=== PATIENT | male | born 1970 | race Caucasian/White ===

== ENCOUNTER 2017-12-15 17:48 | Observation (INO) ==
[2017-12-15] MEDS ORDERED: Ondansetron 4 MG/2 ML VIAL IVP ONE (18:15)
[2017-12-15] MEDS ORDERED: *HR* FentaNYL (PF) 100 MCG/2 ML VIAL IVP ONE (18:15)
--- NOTE | 2017-12-15 18:17 | Emergency Department Note ---
Disposition Clinical Impression: Dizziness, TANNER (acute kidney injury), Hyponatremia, Hypochloremia Abdominal pain Qualifiers: Abdominal location: epigastric Qualified Code(s): R10.13 - Epigastric pain Nausea & vomiting Qualifiers: Vomiting type: unspecified Vomiting Intractability: intractable Qualified Code( s): R11.2 - Nausea with vomiting, unspecified Disposition: Admitted As Inpatient Referrals: Pasquale Pruett DO [Primary Care Provider] - Forms: ED Satisfaction Letter General Adult HPI - General Chief complaint: ED Dizziness Stated complaint: Dizziness Time Seen by Provider: 12/15/17 17:58 Source: patient Limitations: no limitations Nursing Notes Reviewed: Yes Vital Signs Reviewed: Yes - History of Present Illness HPI Narrative: 47 yo M c ETOH abuse, Depression, HTN reports to the ED c/o 1 week of gradual onset epigastic abdominal pain. He reports additionally he has had a weeks worth of lightheaded dizziness and nausea and vomiting. He reports during this time he has also felt like his blood pressure has been elevated. He reports blurry vision, flushing, headache during this time, but he doesn't have a BP cuff. He has been taking double of his blood pressure medication the last few days as a result. He reports he passed out today. He reports pain improves with direct pressure to the epigastrium. He denies diarrhea. Pain Scale: 6 - Related Data Home Medications Medication Instructions Recorded Confirmed Indomethacin [Indomethacin] 50 mg PO TID PRN 12/15/17 12/15/17 Lisinopril [Zestril] 20 mg PO DAILY 12/15/17 12/15/17 Trazodone HCl 100 mg PO HS 12/15/17 12/15/17 Allergies Allergy/AdvReac Type Severity Reaction Status Date / Time No Known Allergies Allergy Verified 12/15/17 21:38 Review of Systems: As Per HPI Past Medical History - Past Medical History Medical history: Reports: hypertension, other Psychiatric history: Reports: no psych history - Social History Smoking Status: Former smoker Alcohol use: Reports: heavy Drug use: Reports: none Physical Exam - General Limitations: no limitations General appearance: alert, in no apparent distress - Head Head exam: atraumatic, normocephalic - Eye Eye exam: Present: PERRL, EOMI - ENT ENT exam: normal oropharynx, mucous membranes moist - Neck Neck exam: Present: full ROM, trachea midline - Chest Chest inspection: Present: symmetric chest wall rise. Absent: tenderness - Respiratory Respiratory exam: Present: normal lung sounds bilaterally. Absent: respiratory distress - Cardiovascular Cardiovascular exam: Present: regular rate, normal rhythm, normal heart sounds - Abdominal Exam Abdominal exam: Present: soft, tenderness, normal bowel sounds. Absent: guarding, rigidity Abdominal tenderness: Present: diffuse - Extremities Exam Extremities exam: Present: full ROM. Absent: pedal edema - Neurological Exam Neurological exam: Present: alert, oriented X3, CN II-XII intact. Absent: motor sensory deficit - Psychiatric Psychiatric exam: Present: normal affect, normal mood - Skin Skin exam: Present: warm, diaphoresis Course Course Narrative: Will check CBC, CMP, CT abd pelvis, RUQ u/s, will treat pain, and nausea. FAST exam negative for fluid int he abdomen. Examination of aorta reveals no dilation or dissection on exam. - Consultations Consultation #1: Discussed case with Admitting hospitlaist Dr. Hurtado who agreed to admit the patient. Vital Signs Temperature 97.8 F 12/15/17 17:52 Pulse Rate 140 12/15/17 17:52 Respiratory Rate 24 12/15/17 17:52 Blood Pressure 89/26 12/15/17 17:52 O2 Sat by Pulse Oximetry 100 12/15/17 17:52 Temperature 97.8 F 12/15/17 17:52 Pulse Rate 106 12/15/17 21:34 Respiratory Rate 18 12/15/17 21:34 Blood Pressure 101/77 12/15/17 21:34 O2 Sat by Pulse Oximetry 98 12/15/17 21:34 Oxygen Delivery Oxygen Delivery Room Air Medical Decision Making - MDM Narrative Medical decision making narrative: Patient's CBC unremarkable. BMP showed hyponatremia and hypocholremia, and an TANNER. LFTs revealed elevated AST, ALT mild elevation to alk phos all likely secondary to pt's alcoholism. Upon presentation patient was tachypnic, tachycardic and hypotensive. Patient's BP has remained been low and pulse tachycardic although improved s/p one liter NS. Will admit patient for further work up and management. - Medical Records Medical records reviewed: Yes I reviewed the patient's medical records. - Lab Data Lab results reviewed: Yes I reviewed the patient's lab results. Result diagrams: 12/15/17 18:39 12/15/17 18:39 Lab Results 12/15/17 12/15/17 12/15/17 Range/Units 18:39 18:39 19:48 WBC 5.8 (4.3-11.1) K/mcL RBC 5.18 (4.19-5.50) M/mcL Hgb 17.5 H (12.9-16.9) g/dL Hct 47.4 (37.5-50.1) % MCV 91.5 (83.0-100.0) fL MCH 33.8 H (28.0-33.3) pg MCHC 36.9 H (31.6-35.5) g/dL RDW 11.8 (11.5-14.5) % Plt Count 182 (140-400) K/mcL MPV 9.8 (9.4-12.4) fL Immature Gran % 0.3 (0-4) % Seg Neutrophils % 65.7 % Lymphocytes % 22.5 % Monocytes % 10.1 % Eosinophils % 0.2 % Basophils % 1.2 % Neutrophils # 3.8 (1.6-8.9) K/mcL Lymphocytes # 1.3 (0.6-4.6) K/mcL Monocytes # 0.6 (0.0-1.3) K/mcL Eosinophils # 0.0 (0.0-0.6) K/mcL Basophils # 0.1 (0.0-0.2) K/mcL Sodium 128 L (136-145) mEq/L Potassium 4.3 (3.5-5.1) mEq/L Chloride 96 L (98-107) mEq/L Carbon Dioxide 18 L (23-29) mEq/L BUN 15 (6-20) mg/dL Creatinine 1.43 H (0.70-1.30) mg/dL Est GFR ( Amer) > 60 (> 60) Est GFR (Non-Af Amer) 53 L (> 60) BUN/Creatinine Ratio 10 (6-26) Glucose 106 H (70-105) mg/dL Calculated Osmolality 267 L (280-300) Calcium 8.8 (8.6-10.3) mg/dL Total Bilirubin 2.3 H (0.3-1.0) mg/dL AST 209 H (13-39) Units/L ALT 133 H (7-52) Units/L Alkaline Phosphatase 127 H (34-104) Units/L Troponin I < 0.03 (< 0.04) ng/mL Serum Total Protein 6.9 (6.4-8.9) g/dL Albumin 3.4 L (3.5-5.7) g/dL Globulin 3.5 (2.4-3.5) g/dL Albumin/Globulin Ratio 1.0 L (1.1-2.2) Lipase 58 (11-82) Units/L Urine Opiates Screen Negative (Zeyfwx=041) ng/mL Ur Barbiturates Screen Negative (Uykbjp=791) ng/mL Ur Phencyclidine Scrn Negative (Cutoff=25) ng/mL Ur Amphetamines Screen Negative (Zwvjvb=3248) ng/mL U Benzodiazepines Scrn Negative (Cwxyjj=084) ng/mL Urine Cocaine Screen Negative (Cutoff= 300) ng/mL U Marijuana (THC) Screen Negative (Cutoff = 50) ng/mL - Radiology Data Radiology results reviewed: Yes I reviewed the patient's radiology results. - EKG Data EKG #1 EKG attestation: Yes I reviewed and interpreted this EKG. EKG results narrative: EKG 12/15/17 20:34 Sinus rythm rate of 95 bpm [place] interval 111, QRS 85 QT/QTc 351/ 404 short [place] interval no ST segment changes. EKG no significant change from prior of 11/19/14 Pr interval then 117 Attestation Statement - Attestation Attestation: I, Berry Francois DO, examined this patient [id number] and my medical decision-making was reviewed with Roberth Stoll PGY-1, Resident Physician. I agree with the documented findings, disposition and treatment plan as described except to the extent set forth below. Please see my progress notes for details.
[2017-12-15] MEDS ORDERED: *HR* LORazepam 2 MG/ML VIAL IVP ONE (18:24)
[2017-12-15] MEDS ORDERED: 0.9 % Sodium Chloride 1,000 ML ONE (18:56)
[2017-12-15 19:04] LABS: Basophils # 0.1 K/mcL (0.0-0.2); Basophils % 1.2 %; Eosinophils % 0.2 %; Hematocrit 47.4 % (37.5-50.1); Hemoglobin 17.5 g/dL (12.9-16.9); Immature Granulocytes % 0.3 % (0-4); Lymphocytes # 1.3 K/mcL (0.6-4.6); Lymphocytes % 22.5 %; Mean Corpuscular HGB Conc 36.9 g/dL (31.6-35.5); Mean Corpuscular Hemoglobin 33.8 pg (28.0-33.3); Mean Corpuscular Volume 91.5 fL (83.0-100.0); Mean Platelet Volume 9.8 fL (9.4-12.4); Monocytes # 0.6 K/mcL (0.0-1.3); Monocytes % 10.1 %; Neutrophils # 3.8 K/mcL (1.6-8.9); Platelet Count 182 K/mcL (140-400); Red Blood Count 5.18 M/mcL (4.19-5.50); Red Cell Distribution Width 11.8 % (11.5-14.5); Segmented Neutrophils % 65.7 %
[2017-12-15] MEDS ORDERED: 0.9 % Sodium Chloride 1,000 ML IVC ONE (19:05)
[2017-12-15 19:10] LABS: Alanine Aminotransferase 133 Units/L (7-52); Albumin 3.4 g/dL (3.5-5.7); Alkaline Phosphatase 127 Units/L (34-104); Aspartate Amino Transferase 209 Units/L (13-39); BUN/Creatinine Ratio 10 (6-26); Bilirubin,Total 2.3 mg/dL (0.3-1.0); Blood Urea Nitrogen 15 mg/dL (6-20); Calcium 8.8 mg/dL (8.6-10.3); Carbon Dioxide 18 mEq/L (23-29); Chloride 96 mEq/L (98-107); Globulin 3.5 g/dL (2.4-3.5); Glucose 106 mg/dL (70-105); Lipase 58 Units/L (11-82); Osmolality,Calculated 267 (280-300); Potassium 4.3 mEq/L (3.5-5.1); Sodium 128 mEq/L (136-145); Total Protein 6.9 g/dL (6.4-8.9); eGFR For African Americans > 60 (> 60); eGFR For Non-African Americans 53 (> 60)
--- NOTE | 2017-12-15 19:13 | Emergency Department Note ---
Disposition Clinical Impression: Abdominal pain, Dizziness, Nausea & vomiting, TANNER (acute kidney injury), Hyponatremia, Hypochloremia Disposition: Admitted As Inpatient Condition: Good Reasons to Return/Additional Instructions: Please follow up with your primary care provider within 1 week of discharge. Please return to the ED if you experience new or worsening symptoms such as blood in vomit, high fever. Please reduce your alcohol consumption. Please obtain a blood pressure cough and only take your blood pressure medication as prescribed. Referrals: Pasquale Pruett, [Primary Care Provider] - Forms: ED Satisfaction Letter Time of Disposition: 21:24 General Adult HPI - General Chief complaint: ED Dizziness Stated complaint: Dizziness Time Seen by Provider: 12/15/17 17:58 Source: patient Limitations: no limitations - History of Present Illness Pain Scale: 6 - Related Data Allergies Allergy/AdvReac Type Severity Reaction Status Date / Time No Known Allergies Allergy Verified 07/14/17 10:29 Past Medical History - Past Medical History Medical history: Reports: hypertension, other Psychiatric history: Reports: no psych history - Social History Smoking Status: Former smoker Alcohol use: Reports: heavy Drug use: Reports: none Physical Exam - General Limitations: no limitations General appearance: alert, in no apparent distress Course Vital Signs Temperature 97.8 F 12/15/17 17:52 Pulse Rate 140 12/15/17 17:52 Respiratory Rate 24 12/15/17 17:52 Blood Pressure 89/26 12/15/17 17:52 O2 Sat by Pulse Oximetry 100 12/15/17 17:52 Temperature 97.8 F 12/15/17 17:52 Pulse Rate 106 12/15/17 20:21 Respiratory Rate 18 12/15/17 20:21 Blood Pressure 104/77 12/15/17 20:21 O2 Sat by Pulse Oximetry 98 12/15/17 20:21 Oxygen Delivery Oxygen Delivery Room Air Medical Decision Making - Lab Data Result diagrams: 12/15/17 18:39 12/15/17 18:39 Lab Results 12/15/17 12/15/17 12/15/17 Range/Units 18:39 18:39 19:48 WBC 5.8 (4.3-11.1) K/mcL RBC 5.18 (4.19-5.50) M/mcL Hgb 17.5 H (12.9-16.9) g/dL Hct 47.4 (37.5-50.1) % MCV 91.5 (83.0-100.0) fL MCH 33.8 H (28.0-33.3) pg MCHC 36.9 H (31.6-35.5) g/dL RDW 11.8 (11.5-14.5) % Plt Count 182 (140-400) K/mcL MPV 9.8 (9.4-12.4) fL Immature Gran % 0.3 (0-4) % Seg Neutrophils % 65.7 % Lymphocytes % 22.5 % Monocytes % 10.1 % Eosinophils % 0.2 % Basophils % 1.2 % Neutrophils # 3.8 (1.6-8.9) K/mcL Lymphocytes # 1.3 (0.6-4.6) K/mcL Monocytes # 0.6 (0.0-1.3) K/mcL Eosinophils # 0.0 (0.0-0.6) K/mcL Basophils # 0.1 (0.0-0.2) K/mcL Sodium 128 L (136-145) mEq/L Potassium 4.3 (3.5-5.1) mEq/L Chloride 96 L (98-107) mEq/L Carbon Dioxide 18 L (23-29) mEq/L BUN 15 (6-20) mg/dL Creatinine 1.43 H (0.70-1.30) mg/dL Est GFR ( Amer) > 60 (> 60) Est GFR (Non-Af Amer) 53 L (> 60) BUN/Creatinine Ratio 10 (6-26) Glucose 106 H (70-105) mg/dL Calculated Osmolality 267 L (280-300) Calcium 8.8 (8.6-10.3) mg/dL Total Bilirubin 2.3 H (0.3-1.0) mg/dL AST 209 H (13-39) Units/L ALT 133 H (7-52) Units/L Alkaline Phosphatase 127 H (34-104) Units/L Troponin I < 0.03 (< 0.04) ng/mL Serum Total Protein 6.9 (6.4-8.9) g/dL Albumin 3.4 L (3.5-5.7) g/dL Globulin 3.5 (2.4-3.5) g/dL Albumin/Globulin Ratio 1.0 L (1.1-2.2) Lipase 58 (11-82) Units/L Urine Opiates Screen Negative (Gjrzmv=442) ng/mL Ur Barbiturates Screen Negative (Sutmnq=974) ng/mL Ur Phencyclidine Scrn Negative (Cutoff=25) ng/mL Ur Amphetamines Screen Negative (Klimqe=8267) ng/mL U Benzodiazepines Scrn Negative (Sabcfw=507) ng/mL Urine Cocaine Screen Negative (Cutoff= 300) ng/mL U Marijuana (THC) Screen Negative (Cutoff = 50) ng/mL Attestation Statement - Attestation Attestation: I, Berry Francois DO, examined this patient [id number] and my medical decision-making was reviewed with Roberth Stoll PGY-1, Resident Physician. I agree with the documented findings, disposition and treatment plan as described except to the extent set forth below. Please see my progress notes for details. 47-year-old male presents emergency room with what he describes is persistently worsening nausea and vomiting epigastric pain as well as diaphoresis and sweating. Patient denies any chest pain or shortness of breath. Does have abdominal discomfort and symptoms. After lengthy discussions as well as review his previous chart patient is a known alcoholic and has not drank since last night. He also takes his blood pressure medication based on how he feels symptomatically. He does not follow his medication regimens appropriately but does not disclose any new medications or changes in his medication. Patient denies any fevers or chills headache vision changes trauma or injuries. Her presenting symptoms are nausea and vomiting with epigastric pain. On physical exam the patient has swelling to the presentation of this time. Head is atraumatic pupils are reactive oropharynx is patent mucous membranes are moist. Trachea is midline. Lungs are clear heart is regular abdomen is soft does describe some discomfort in the epigastric area and bilateral upper quadrants. Outside ultrasound was utilized looking at the right upper quadrant and left upper quadrant. There is no visible signs of free fluid and then severe evaluated through the subxiphoid periumbilical subumbilical regions of the abdomen showing what appears to be asymmetric diameters to the aorta with the readings being 1.7 2.0 2.0. Patient is alert and oriented this time. He moves all 4 of his extremities without any difficulty. He has symmetrical pulses in the radial DP and PT distributions. Patient is concerning for possible bowel related withdrawal issues this point along with intractable nausea vomiting secondary to this issue. Patient will be provided with Ativan, chills, nausea medication here. His blood pressure was initially decreased but otherwise remainder of those evaluation is unremarkable. Patient is concerning for possible intra-abdominal pathology this is CT imaging the abdomen will be added on and possible ultrasound. Patient is clinically stable no acute signs of dissection, aneurysm, intra-abdominal pathology based on initial triage evaluation. Disposition to be determined once full workup and treatment course are completed. See detailed documentation that initial physical exam, medical intervention, medical decision-making and disposition in the resident physician' s note. No current local care provider the patient's treatment course at this time 2034 Patient has a negative CT of the abdomen at this time. Ultrasound is unremarkable except for hepatic steatosis. Chest x-ray is stable. Labs appear to be stable at this time except for what appears to be new hyponatremia, hypochloremia, decreased bicarbonate and acute kidney insufficiency. Patient also was hypotensive initially on presentation are tachycardic and tachypnea. No acute infectious etiology was noted at this point. Patient will be informed of the findings and discuss disposition. Admission process will be recommended secondary to the multifactorial presentation. No other acute findings during this evaluation. Patient does not have any acute signs of decompensation. Unknown etiology to the abdominal pain that he has had for greater than 1 week. 2044 Patient has negative troponin and EKG. Patient will be admitted for symptomatic hypotension, acute kidney insufficiency and I abnormalities. Patient is resting much more comfortably at this time is denying any specific symptoms after treatment course was completed. Hospitalist will be patient informed of the patient's presentation and will be recommended to monitor the patient for alcohol withdrawal. Admission process to be completed. Detailed conversation had. No other recommendations.
[2017-12-15 20:10] LABS: Amphetamine Screen,Urine Negative ng/mL (Cutoff=1000); Barbiturate Screen,Urine Negative ng/mL (Cutoff=200); Benzodiazepines Screen,Urine Negative ng/mL (Cutoff=200); Cannabinoid Screen,Urine Negative ng/mL (Cutoff = 50); Cocaine Screen,Urine Negative ng/mL (Cutoff= 300); Opiate Screen,Urine Negative ng/mL (Cutoff=300); Phencyclidine Screen,Urine Negative ng/mL (Cutoff=25)
[2017-12-15 20:42] LABS: Troponin I < 0.03 ng/mL (< 0.04)
[2017-12-15] MEDS ORDERED: Naloxone 0.4 MG/ML INJ IVP PRN (23:00)
[2017-12-15] MEDS ORDERED: *HR* Promethazine 25 MG/ML VIAL IVP PRN (23:06)
[2017-12-15] MEDS ORDERED: *HR* LORazepam 2 MG/ML VIAL IVP PRN ×3 (23:06)
[2017-12-15] MEDS ORDERED: Ondansetron 4 MG/2 ML VIAL IVP PRN (23:06)
[2017-12-16] MEDS: Pantoprazole 40 MG VIAL IVP SCH ×3 (00:08→17:09)
[2017-12-16] MEDS: 0.9 % Sodium Chloride 1,000 ML IVC SCH ×2 (00:13→09:53)
--- NOTE | 2017-12-16 02:20 | Internal Med History&Physical ---
Date of Encounter: 12/15/17 Time of Encounter: 21:00 Internal Medicine - H&P: HPI Chief complaint: Dizziness Admitted From: Home Plans for Post Hospital Care: Home History of present illness: Mr. Montes De Oca is a 47 year old male presented to ER for dizziness and nausea. Past medical history is significant for hypertension, alcoholism. Patient said he has increased heartburn and nausea for about 1 week. Patient has poor intake because of GI symptoms. Patient feels shortness of breath and dizzy. He has nausea but no vomiting. Patient denies diarrhea. Patient has no chest pain. Patient denies black stool. Patient has mild shaking and diaphoresis. Patient was known for alcoholism with drinking 6-8 beers every day. In the emergency room, he was found hypotensive and tachycardia. He was treated with IV fluid and symptoms has improved. Patient also was found elevated creatinine. Patient was admitted for further management. Past Med Surg Social Fam HX - Past Medical History Medical history: hypertension, other Psychiatric history: no psych history - Social History Smoking Status: Former smoker Alcohol use: heavy Drug use: none - Family History Mother History Unknown: Yes Internal Medicine - H&P: Meds Indomethacin [Indomethacin] 50 mg PO TID PRN 12/15/17 [History] Lisinopril [Zestril] 20 mg PO DAILY 12/15/17 [History] Trazodone HCl 100 mg PO HS 12/15/17 [History] 3 Allergy/AdvReac Type Severity Reaction Status Date / Time No Known Allergies Allergy Verified 12/15/17 21:38 All Systems PM: A 10-system review of systems was performed and is negative for pertinent findings except as documented above in the HPI. - Constitutional Vitals: Temp Pulse Resp BP Pulse Ox 97.4 F L 98 20 103/76 100 12/15/17 23:40 12/15/17 23:40 12/15/17 23:40 12/15/17 23:40 12/15/17 23:40 General appearance: Present: A&O X 3, no acute distress, answers questions appropriately - Head Head exam: Present: atraumatic, normocephalic - Eye Eye exam: Present: PERRL, conjuntiva pink, sclera anicteric Pupils: Present: PERRL - Neck Neck exam general surgery: Present: supple, trachea midline. Absent: lymphadenopathy - Respiratory Respiratory exam: Present: CTAB. Absent: accessory muscle use, rales, rhonchi, wheezes - Cardiovascular Cardiovascular exam: Present: RRR, +S1, +S2. Absent: diastolic murmur, gallop, rubs, systolic murmur - GI/Abdominal GI/Abdominal exam: Present: normal bowel sounds, soft, tenderness (Mild tenderness on epigastric area), no peritoneal signs. Absent: distended - Extremities Exam Extremities exam: Present: warm, radial pulses palpable and symmetrical. Absent : calf tenderness, cyanotic, pedal edema - Neurological Exam Neurological exam: Present: CN II-XII intact, oriented X3, no focal deficits. Absent: pronater drift, facial droop, speech deficit - Skin Skin exam: Present: dry, intact Internal Med - H&P Results - Labs CBC & Chem 7: 12/15/17 18:39 12/15/17 18:39 - Assessment and plan (1) Alcoholism Current Visit: Yes Status: Acute Assessment and plan: Patient is a heavy drinker. Will place patient on CIWA protocol, banana bag, and Librium by mouth for withdrawal prevention. (2) DVT prophylaxis Current Visit: Yes Status: Acute Assessment and plan: Heparin subcutaneously (3) Abdominal pain Current Visit: Yes Status: Acute Assessment and plan: Mild epigastric pain with heartburn. Patient is on indocin at home medication list. We will hold Indocin and start PPI. No signs of GI bleed at this point. Qualifiers: Abdominal location: epigastric Qualified Code(s): R10.13 - Epigastric pain (4) Dizziness Current Visit: Yes Status: Acute Assessment and plan: Patient has hypotensive. He has poor intake in last week. Blood pressure improved after IV fluid. - Continue IV fluid - Closely monitor vitals (5) TANNER (acute kidney injury) Current Visit: Yes Status: Acute Assessment and plan: Patient has signs of poor intake. Mild elevated creatinine level most likely due to dehydration. Place patient on IV fluid, closely follow renal function. Avoid nephrotoxic medications. Hold home med lisinopril considering TANNER and hypotension. - Time Spent With Patient Total time spent is greater than 50% in coordination of care (as documented) at patient's floor/unit and/or counseling patient: 40 min Greater than 35 minutes
[2017-12-16] MEDS: *HR* Heparin 5,000 UNIT/ML VIAL SQ SCH ×2 (05:11→17:09)
[2017-12-16 05:53] LABS: Basophils # 0.1 K/mcL (0.0-0.2); Basophils % 1.2 %; Eosinophils # 0.1 K/mcL (0.0-0.6); Eosinophils % 1.2 %; Hematocrit 39.3 % (37.5-50.1); Immature Granulocytes % 0.2 % (0-4); Lymphocytes # 1.5 K/mcL (0.6-4.6); Lymphocytes % 29.6 %; Mean Corpuscular HGB Conc 36.4 g/dL (31.6-35.5); Mean Corpuscular Hemoglobin 34.1 pg (28.0-33.3); Mean Corpuscular Volume 93.8 fL (83.0-100.0); Mean Platelet Volume 10.3 fL (9.4-12.4); Monocytes # 0.4 K/mcL (0.0-1.3); Monocytes % 8.8 %; Platelet Count 143 K/mcL (140-400); Red Blood Count 4.19 M/mcL (4.19-5.50); Red Cell Distribution Width 11.9 % (11.5-14.5)
[2017-12-16 05:56] LABS: Hemoglobin 14.3 g/dL (12.9-16.9)
[2017-12-16 06:02] LABS: BUN/Creatinine Ratio 9 (6-26); Blood Urea Nitrogen 11 mg/dL (6-20); Carbon Dioxide 21 mEq/L (23-29); Chloride 102 mEq/L (98-107); Glucose 65 mg/dL (70-105); Magnesium 1.7 mg/dL (1.6-2.6); Osmolality,Calculated 266 (280-300); Potassium 3.8 mEq/L (3.5-5.1); Sodium 129 mEq/L (136-145); eGFR For African Americans > 60 (> 60); eGFR For Non-African Americans > 60 (> 60)
[2017-12-16] MEDS ORDERED: Lisinopril 20 MG TABLET PO SCH (09:00)
[2017-12-16] MEDS ORDERED: *HR* LORazepam 2 MG/ML VIAL IVP PRN ×3 (15:33)
--- NOTE | 2017-12-16 15:35 | Internal Med Progress Note ---
Date of Encounter: 12/16/17 Time of Encounter: 15:32 - Assessment and plan (1) Abdominal pain Current Visit: Yes Status: Acute Assessment and plan: Syncopal episode secondary to hypovolemia due to severe dehydration as a result of intractable vomiting likely related to severe gastritis, possible esophagitis pain with heartburn. Patient used to be on indocin ( took one pill last week for gout) Continue IV protonix No signs of GI bleed at this point. Fall precautions GI consult NPO after midnight IVF Hemoglobin was 17.5 upon admission likely secondary to hemoconcentration/ dehydration, today's 14.3 Qualifiers: Abdominal location: epigastric Qualified Code(s): R10.13 - Epigastric pain (2) Dizziness Current Visit: Yes Status: Acute Assessment and plan: Patient was hypotensive. He had poor intake in last week. Blood pressure improved after IV fluid. - Continue IV fluid - (3) TANNER (acute kidney injury) Current Visit: Yes Status: Acute Assessment and plan: Acute renal failure secondary to severe dehydration Continue IV fluids Hold home med lisinopril considering TANNER and hypotension. (4) Alcoholism Current Visit: Yes Status: Acute Assessment and plan: Patient is a heavy drinker. Will place patient on CIWA protocol, banana bag, and Librium by mouth for withdrawal prevention. - Time Spent With Patient Total time spent is greater than 50% in coordination of care (as documented) at patient's floor/unit and/or counseling patient: - Subjective Interval history: Complaining of severe epigastric pain, burning like, daily vomiting, no melena, no diarrhea, no chest pain or shortness of breath, denies fevers - Constitutional Vitals: Temp Pulse Resp BP Pulse Ox 98.0 F 68 17 107/80 96 12/16/17 11:48 12/16/17 11:48 12/16/17 11:48 12/16/17 11:48 12/16/17 11:48 General appearance: Present: A&O X 3, no acute distress, answers questions appropriately - Head Head exam: Present: atraumatic, normocephalic - Eye Eye exam: Present: PERRL, conjuntiva pink, sclera anicteric Pupils: Present: PERRL - Neck Neck exam general surgery: Present: supple, trachea midline. Absent: lymphadenopathy - Respiratory Respiratory exam: Present: CTAB. Absent: accessory muscle use, rales, rhonchi, wheezes - Cardiovascular Cardiovascular exam: Present: RRR, +S1, +S2. Absent: diastolic murmur, gallop, rubs, systolic murmur - GI/Abdominal GI/Abdominal exam: Present: normal bowel sounds, soft, tenderness (Mild epigastric tenderness), no peritoneal signs. Absent: distended - Extremities Exam Extremities exam: Present: warm, radial pulses palpable and symmetrical. Absent : calf tenderness, cyanotic, pedal edema - Neurological Exam Neurological exam: Present: CN II-XII intact, oriented X3, no focal deficits. Absent: pronater drift, facial droop, speech deficit - Skin Skin exam: Present: dry, intact Internal Medicine: Result - Labs CBC & Chem 7: 12/16/17 04:47 12/16/17 04:47 Labs: Short CBC 12/16/17 Range/Units 04:47 WBC 5.0 (4.3-11.1) K/mcL Hgb 14.3 D (12.9-16.9) g/dL Hct 39.3 (37.5-50.1) % Plt Count 143 (140-400) K/mcL Neutrophils # 3.0 (1.6-8.9) K/mcL BMP 12/16/17 04:47 Sodium 129 L Potassium 3.8 Chloride 102 Carbon Dioxide 21 L BUN 11 Creatinine 1.19 Glucose 65 L Calcium 8.0 L Consult Discharge Plan - Plan Referrals: Pasquale Pruett DO [Primary Care Provider] -
--- NOTE | 2017-12-16 15:54 | Electrocardiograph Report ---
[place] [id number] Test Date: 2017-12-15 Pat Name: Lalo Montes De Oca Department: 103 Room: [id number] Gender: M Court Monitor: EDWIN : 1970 Requested By: Roberth Stoll Order Number: [id number] Reading MD: Nori Carter Measurements Intervals [place] Rate: 95 P: 45 [place]: 111 QRS: 43 QRSD: 85 T: 38 QT: 351 QTc: 404 Interpretive Statements SINUS RHYTHM WITH SHORT [place] INTERVAL Electronically Signed On 12-16-2017 15:53:00 EDT by Nori Carter
[2017-12-16] MEDS ORDERED: Thiamine (B-1) 100 MG, Folic Acid 1 MG, MVI, adult with vitamin K 10 ML in 0.9 % Sodi... IVPB SCH (18:00)
[2017-12-16] MEDS ORDERED: traZODone 50 MG TABLET PO SCH (21:00)
[2017-12-16 21:19] LABS: Hematocrit 37.4 % (37.5-50.1); Hemoglobin 13.4 g/dL (12.9-16.9)
[2017-12-17] MEDS: Pantoprazole 40 MG VIAL IVP SCH (05:42)
[2017-12-17] MEDS: *HR* Heparin 5,000 UNIT/ML VIAL SQ SCH (05:42)
[2017-12-17 06:23] LABS: Hematocrit 37.7 % (37.5-50.1); Hemoglobin 13.4 g/dL (12.9-16.9); Mean Corpuscular HGB Conc 35.5 g/dL (31.6-35.5); Mean Corpuscular Hemoglobin 33.9 pg (28.0-33.3); Mean Corpuscular Volume 95.4 fL (83.0-100.0); Mean Platelet Volume 10.1 fL (9.4-12.4); Platelet Count 115 K/mcL (140-400); Red Blood Count 3.95 M/mcL (4.19-5.50); Red Cell Distribution Width 11.9 % (11.5-14.5)
[2017-12-17 06:35] LABS: BUN/Creatinine Ratio 6 (6-26); Blood Urea Nitrogen 7 mg/dL (6-20); Calcium 8.1 mg/dL (8.6-10.3); Carbon Dioxide 22 mEq/L (23-29); Chloride 109 mEq/L (98-107); Glucose 100 mg/dL (70-105); Osmolality,Calculated 280 (280-300); Sodium 136 mEq/L (136-145); eGFR For African Americans > 60 (> 60); eGFR For Non-African Americans > 60 (> 60)
[2017-12-17 07:18] VITALS: BP 108/73
[2017-12-17] MEDS ORDERED: Acetaminophen 325 MG TABLET PO PRN (10:20)
--- NOTE | 2017-12-17 10:59 | Discharge Summary ---
- NOTES TO OUTPATIENT PROVIDER Notes to Outpatient Provider: Follow-up with primary care physician within the next 7 days, continue omeprazole and Carafate. Follow-up with GI within the next 2 weeks Date of Encounter: 12/17/17 Time of Encounter: 10:49 - Discharge Diagnosis (1) Abdominal pain Priority: Primary Status: Acute Assessment and Plan: Syncopal episode secondary to hypovolemia due to severe dehydration as a result of intractable vomiting likely related to severe gastritis, possible esophagitis Qualifiers: Abdominal location: epigastric Qualified Code(s): R10.13 - Epigastric pain (2) Dizziness Priority: Secondary Status: Acute Assessment and Plan: - (3) TANNER (acute kidney injury) Priority: Primary Status: Acute Assessment and Plan: Acute renal failure secondary to severe dehydration resolved (4) Alcoholism Priority: Secondary Status: Acute Hospital course: Mr. Montes De Oca is a 47 year old male Past medical history is significant for hypertension, alcoholism. Had increased heartburn and nausea for about 1 week. Patient had very poor intake because of GI symptoms. Denied any diarrhea or chest pain, denied any black stools. Patient presented with shaking and diaphoresis. Patient was known for alcoholism with drinking 6-8 beers every day. In the emergency room, he was found hypotensive and tachycardic. Blood pressure was 89/26, improved with fluids. Heart rate was 140. Used to be on indocin ( took one pill last week for gout) Patient also was found elevated creatinine of 1.43, now ia 1.13. Hemoglobin was 17.5 upon admission likely secondary to hemoconcentration/ dehydration. Heartburn as subsided. Continue omeprazole. No signs of GI bleed at this point. GI was consulted and is recommending follow-up as an outpatient. Patient's pain has resolved completely and is a stable to be discharged home consult No signs of active bleeding. Time spent discussing smoking cessation with patient: 3 to 10 minutes - Time Spent with Patient Total time spent providing and/or coordinating discharge services: Greater than 30 minutes (40 min) - Discharge Medications Prescriptions: Omeprazole [PriLOSEC] 40 mg PO BID #60 cap Sucralfate [Carafate] 1 gm PO QIDAC #120 tablet Home Medications: Lisinopril [Zestril] 20 mg PO DAILY 12/15/17 [History] Trazodone HCl 100 mg PO HS 12/15/17 [History] Acetaminophen [Tylenol] 650 mg PO Q6H PRN tablet 12/17/17 [Rx] Calcium Carbonate [Tums] 1,000 mg PO Q4HR PRN tab.chew 12/17/17 [Rx] Omeprazole [PriLOSEC] 40 mg PO BID #60 cap 12/17/17 [Rx] Sucralfate [Carafate] 1 gm PO QIDAC #120 tablet 12/17/17 [Rx] Allergies/Adverse Reactions: 3 Allergy/AdvReac Type Severity Reaction Status Date / Time No Known Allergies Allergy Verified 12/15/17 21:38 Date of admission: 12/15/17 22:44 Primary care physician: Pasquale Pruett, Consults: 12/15/17 23:06 Consult to [employer] [facility] [CONS] Routine Reason for SW Consult: Alcoholism 12/16/17 15:30 Consult to Gastroenterology [CONS] Routine Consulting Provider: [facility] Reason for Consult: gastritis Call Completed: Yes - Constitutional Vitals: Temp Pulse Resp BP Pulse Ox 97.6 F 75 17 108/73 95 12/17/17 07:11 12/17/17 07:11 12/17/17 07:11 12/17/17 07:11 12/17/17 07:11 General appearance: Present: A&O X 3, no acute distress, answers questions appropriately - Head Head exam: Present: atraumatic, normocephalic - Eye Eye exam: Present: PERRL, conjuntiva pink, sclera anicteric Pupils: Present: PERRL - Neck Neck exam general surgery: Present: supple, trachea midline. Absent: lymphadenopathy - Respiratory Respiratory exam: Present: CTAB. Absent: accessory muscle use, rales, rhonchi, wheezes - Cardiovascular Cardiovascular exam: Present: RRR, +S1, +S2. Absent: diastolic murmur, gallop, rubs, systolic murmur - GI/Abdominal GI/Abdominal exam: Present: normal bowel sounds, soft, no peritoneal signs. Absent: distended, tenderness - Extremities Exam Extremities exam: Present: warm, radial pulses palpable and symmetrical. Absent : calf tenderness, cyanotic, pedal edema - Neurological Exam Neurological exam: Present: CN II-XII intact, oriented X3, no focal deficits. Absent: pronater drift, facial droop, speech deficit - Skin Skin exam: Present: dry, intact - Patient Status Disposition: Home, Self-Care Condition: Good Overall status at discharge: patient is back to baseline - Discharge Instructions Follow Up With: Pasquale Pruett DO [Primary Care Provider] - 12/21/17 3:30 pm - Diet and Activity Activity: increase activity as tolerated Diet: regular diet
--- NOTE | 2017-12-17 11:38 | Gastroenterology Consult Note ---
Date of Encounter: 12/17/17 Time of Encounter: 10:30 - Assessment and plan (1) Abdominal pain Current Visit: Yes Status: Acute Assessment and plan: Symptoms resolved currently. Continue PPI and follow up in GI office as outpatient in 2-4 weeks. Will consider EGD if symptoms not improved. Qualifiers: Abdominal location: epigastric Qualified Code(s): R10.13 - Epigastric pain (2) Nausea & vomiting Current Visit: Yes Status: Acute Assessment and plan: Likely secondary to reflux. Continue PPI and PRN antiemetics. Qualifiers: Vomiting type: unspecified Vomiting Intractability: intractable Qualified Code(s): R11.2 - Nausea with vomiting, unspecified (3) Alcoholism Current Visit: Yes Status: Acute - Time Spent With Patient Total time spent is greater than 50% in coordination of care (as documented) at patient's floor/unit and/or counseling patient: GI History of Present Illness - Data of Consult Patient: new to practice Consult date: 12/17/17 Requesting Physician: Risa Hurtado MD - Consult Narrative Reason for consult: Gastritis History of present illness: Mr. Montes De Oca is a 47 year old male with PMHx of HTN and alcoholism who presented to the ED with dizziness and nausea. He complains of heartburn, epigastric pain, and nausea for about 1 week, but denies any vomiting. He has poor oral intake due to the GI symptoms. Patient was known for alcoholism with drinking 6-8 beers every day. In the emergency room, he was found hypotensive and tachycardia. He was treated with IV fluid and symptoms has improved. Procedures: None NSAIDs: None Anticoagulation: None Past Med Surg Social Fam HX - Past Medical History Medical history: hypertension, other Psychiatric history: no psych history - Social History Smoking Status: Former smoker Alcohol use: heavy Drug use: none - Family History Mother History Unknown: Yes - Gastrointestinal Gastrointestinal: Present: as per HPI - Constitutional Constitutional: as per HPI - EENT Eyes: as per HPI Ears: Present: as per HPI Nose, mouth and throat: Present: as per HPI - Cardiovascular Cardiovascular ROS: Present: as per HPI - Respiratory Respiratory IM: Present: as per HPI - Genitourinary Genitourinary: Absent: change in color, Urinary frequency - Neurological ROS Neurological GI: Present: as per HPI - Hematologic/Lymphatic Hematologic/Lymphatic pediatric: Present: as per HPI - Musculoskeletal Musculoskeletal ROS GI: Present: as per HPI - Integumentary Integumentary GI: Present: as per HPI - Psychiatric ROS Psychiatric GI: Present: as per HPI - Endocrine Endocrine IM: Present: as per HPI - Constitutional Vitals: Temp Pulse Resp BP Pulse Ox 97.6 F 75 17 108/73 95 12/17/17 07:11 12/17/17 07:11 12/17/17 07:11 12/17/17 07:11 12/17/17 07:11 General appearance: Present: cooperative, A&O X 3, no acute distress, answers questions appropriately - Head Head exam: Present: atraumatic, normocephalic - Eye Eye exam: Present: normal appearance, sclera anicteric - ENT ENT exam: Present: mucous membranes moist - Neck Neck exam general surgery: Present: normal inspection, trachea midline - Respiratory Respiratory exam: Present: CTAB. Absent: rales, rhonchi - Cardiovascular Cardiovascular exam: Present: RRR, +S1, +S2 - GI/Abdominal GI/Abdominal exam: Present: soft, no peritoneal signs. Absent: distended, firm , guarding, tenderness - Rectal Rectal exam: Present: deferred - Extremities Exam Extremities exam: Present: warm - Neurological Exam Neurological exam: Present: no focal deficits - Psychiatric Psychiatric exam: Present: normal affect, normal mood - Skin Skin exam: Present: dry, intact, normal color, warm Results - Labs CBC & Chem 7: 12/17/17 05:35 12/17/17 05:35 Labs: Last Result Calcium 8.1 mg/dL (8.6-10.3) L 12/17/17 05:35 Troponin I < 0.03 ng/mL (< 0.04) 12/15/17 18:39 Urine Opiates Screen Negative ng/mL ([id number]) 12/15/17 19:48 Entire Visit Hgb 13.4 g/dL (12.9-16.9) 12/17/17 05:35 Hct 37.7 % (37.5-50.1) 12/17/17 05:35 Total Bilirubin 2.3 mg/dL (0.3-1.0) H 12/15/17 18:39 AST 209 Units/L (13-39) H 12/15/17 18:39 ALT 133 Units/L (7-52) H 12/15/17 18:39 Lipase 58 Units/L (11-82) 12/15/17 18:39 Consult Discharge Plan - Plan Instructions: Sucralfate (By mouth), Omeprazole (By mouth), Gastritis (DC) Referrals: Pasquale Pruett DO [Primary Care Provider] - 12/21/17 3:30 pm Prescriptions: Omeprazole [PriLOSEC] 40 mg PO BID #60 cap Sucralfate [Carafate] 1 gm PO QIDAC #120 tablet
== END 2017-12-17 13:03 | disposition home or self-care (01) ==
LOC: EMEROO 17:48 → 2NENU 17:48
PROVIDERS: ADMIT Internal Medicine; ATTEND Internal Medicine

== ENCOUNTER 2018-01-13 13:46 | Observation (INO) ==
[2018-01-13 14:29] LABS: Basophils # 0.1 K/mcL (0.0-0.2); Basophils % 1.3 %; Eosinophils # 0.1 K/mcL (0.0-0.6); Eosinophils % 1.5 %; Hematocrit 43.5 % (37.5-50.1); Hemoglobin 15.8 g/dL (12.9-16.9); Immature Granulocytes % 0.3 % (0-4); Lymphocytes # 0.9 K/mcL (0.6-4.6); Lymphocytes % 22.4 %; Mean Corpuscular HGB Conc 36.3 g/dL (31.6-35.5); Mean Corpuscular Hemoglobin 34.8 pg (28.0-33.3); Mean Corpuscular Volume 95.8 fL (83.0-100.0); Mean Platelet Volume 9.6 fL (9.4-12.4); Monocytes # 0.3 K/mcL (0.0-1.3); Monocytes % 7.7 %; Neutrophils # 2.6 K/mcL (1.6-8.9); Platelet Count 135 K/mcL (140-400); Red Blood Count 4.54 M/mcL (4.19-5.50); Red Cell Distribution Width 14.1 % (11.5-14.5); Segmented Neutrophils % 66.8 %
[2018-01-13 14:38] LABS: INR 1.2; Prothrombin Time 12.5 Seconds (9.4-12.1)
[2018-01-13 14:53] LABS: Troponin I < 0.03 ng/mL (< 0.04)
[2018-01-13 14:57] LABS: BUN/Creatinine Ratio 9 (6-26); Blood Urea Nitrogen 10 mg/dL (6-20); Calcium 8.4 mg/dL (8.6-10.3); Carbon Dioxide 15 mEq/L (23-29); Chloride 103 mEq/L (98-107); Glucose 58 mg/dL (70-105); Osmolality,Calculated 267 (280-300); Potassium 4.3 mEq/L (3.5-5.1); Sodium 130 mEq/L (136-145); eGFR For African Americans > 60 (> 60); eGFR For Non-African Americans > 60 (> 60)
--- NOTE | 2018-01-13 15:11 | Emergency Department Note ---
Disposition Clinical Impression: Chest pain Qualifiers: Chest pain type: unspecified Qualified Code(s): R07.9 - Chest pain, unspecified Disposition: Admitted As Inpatient Condition: Good Time of Disposition: 19:15 Chest Pain HPI - General Chief Complaint: ED Chest Pain Stated Complaint: CP SOB Time Seen by Provider: 01/13/18 14:02 Source: patient Limitations: no limitations Vital Signs Reviewed: Yes Nursing Notes Reviewed: Yes - History of Present Illness HPI Narrative: 27-year-old male presents from home for evaluation of chest pain. Onset this morning and was present upon awakening. Described as sharp, stabbing, substernal, with radiation to his left arm. Worse with activity. Associate with dyspnea and nausea. ROS: Positive: As above Negative: Fever, chills, vomiting, palpitations, diaphoresis, cough, abdominal pain, dysuria, changes in bowel habits Severity scale (1-10): 7 - Related Data Home Medications Medication Instructions Recorded Confirmed Lisinopril [Zestril] 20 mg PO DAILY 12/15/17 01/13/18 Trazodone HCl 100 mg PO HS 12/15/17 01/13/18 Previous Rx's Medication Instructions Recorded Acetaminophen [Tylenol] 650 mg PO Q6H PRN tablet 12/17/17 Calcium Carbonate [Tums] 1,000 mg PO Q4HR PRN tab.chew 12/17/17 Omeprazole [PriLOSEC] 40 mg PO BID #60 cap 12/17/17 Sucralfate [Carafate] 1 gm PO QIDAC #120 tablet 12/17/17 Allergies Allergy/AdvReac Type Severity Reaction Status Date / Time No Known Allergies Allergy Verified 01/13/18 16:19 All systems ED: reviewed and negative except as stated. Review of Systems: As Per HPI Chest Pain PMH - Past Medical History Medical history: Reports: hypertension, other Psychiatric history: Reports: no psych history - Social History Smoking Status: Former smoker Alcohol use: Reports: heavy Drug use: Reports: none Physical Exam Vital Signs Reviewed General: Patient is alert, oriented, and in no acute distress. Head: atraumatic, normocephalic Eye: normal appearance, no scleral icterus, no conjunctival injection ENT: mucous membranes moist, normal external ear exam Neck: normal inspection, trachea midline, full ROM Chest: normal inspection, symmetric chest rise. Nontender to palpation. Respiratory: Good respiratory effort. Bilateral breath sounds are clear without wheezing, crackles, or rhonchi. Cardiovascular: Regular rate and rhythm. No clicks, rubs, gallops, or murmors. Normal heart sounds. Bilateral radial pulses 2/4 equal. Abdomen: Bowel sounds present normoactive x-4 quadrants. Abdomen is soft, nondistended, and nontender. No guarding or rebound. No organomegaly noted. Musculoskeletal: Spontaneously moving all extremities. Skin: warm, dry, intact. Neuro: Alert and oriented x4. Sensation light touch intact. Psych: Patient's affect is appropriate for situation. - General Limitations: no limitations General appearance: alert, in no apparent distress Course Course Narrative: Mr. Montes De Oca is a patient of Dr. Pruett came down to evaluate the patient. He agrees with our assessment the patient's history is concerning. Dr. Pruett prefers to admit the patient in conjunction with the admitting hospitalist. EKG dated 01/13/18 at 13:58 interpreted as sinus rhythm with rate of 94. Short DE interval of 106. Otherwise QRS 82, QTC 408. Normal axis. Nonspecific ST-T changes. Compared to previous dated 12/15/2017 showing no acute ischemic changes or comparison. Vital Signs Temperature 98.0 F 01/13/18 13:48 Pulse Rate 100 01/13/18 13:48 Respiratory Rate 16 01/13/18 13:48 Blood Pressure 111/79 01/13/18 13:48 O2 Sat by Pulse Oximetry 97 01/13/18 13:48 Temperature 97.9 F 01/13/18 18:52 Pulse Rate 82 01/13/18 18:52 Respiratory Rate 16 01/13/18 18:52 Blood Pressure 118/78 01/13/18 18:52 O2 Sat by Pulse Oximetry 99 01/13/18 18:52 Oxygen Delivery Oxygen Delivery Room Air Chest Pain - Lab Data Result diagrams: 01/13/18 14:13 01/13/18 14:13 Lab Results 01/13/18 01/13/18 01/13/18 Range/Units 14:03 14:13 14:13 WBC 3.9 L (4.3-11.1) K/mcL RBC 4.54 (4.19-5.50) M/mcL Hgb 15.8 (12.9-16.9) g/dL Hct 43.5 (37.5-50.1) % MCV 95.8 (83.0-100.0) fL MCH 34.8 H (28.0-33.3) pg MCHC 36.3 H (31.6-35.5) g/dL RDW 14.1 (11.5-14.5) % Plt Count 135 L (140-400) K/mcL MPV 9.6 (9.4-12.4) fL Immature Gran % 0.3 (0-4) % Seg Neutrophils % 66.8 % Lymphocytes % 22.4 % Monocytes % 7.7 % Eosinophils % 1.5 % Basophils % 1.3 % Neutrophils # 2.6 (1.6-8.9) K/mcL Lymphocytes # 0.9 (0.6-4.6) K/mcL Monocytes # 0.3 (0.0-1.3) K/mcL Eosinophils # 0.1 (0.0-0.6) K/mcL Basophils # 0.1 (0.0-0.2) K/mcL PT 12.5 H (9.4-12.1) Seconds INR 1.2 APTT 30.0 (26.0-36.0) Seconds Sodium 130 L (136-145) mEq/L Potassium 4.3 (3.5-5.1) mEq/L Chloride 103 (98-107) mEq/L Carbon Dioxide 15 L (23-29) mEq/L BUN 10 (6-20) mg/dL Creatinine 1.10 (0.70-1.30) mg/dL Est GFR ( Amer) > 60 (> 60) Est GFR (Non-Af Amer) > 60 (> 60) BUN/Creatinine Ratio 9 (6-26) Glucose 58 L (70-105) mg/dL Calculated Osmolality 267 L (280-300) Calcium 8.4 L (8.6-10.3) mg/dL Troponin I < 0.03 (< 0.04) ng/mL Heart Score - Score History: Moderately Suspicious EKG: Non Specific repolarisation Disturbance Age: 45-65 Risk Factors: 1-2 risk factors Troponin: Less than normal limit HEART Score Total: 4
[2018-01-13] MEDS ORDERED: Aspirin 325 MG TABLET PO ONE (15:17)
[2018-01-13] MEDS ORDERED: Naloxone 0.4 MG/ML INJ IVP PRN (15:46)
[2018-01-13] MEDS ORDERED: Acetaminophen 325 MG TABLET PO PRN (15:46)
[2018-01-13] MEDS ORDERED: 0.9 % Sodium Chloride 1,000 ML IVC ONE (15:48)
[2018-01-13] MEDS ORDERED: Melatonin 3 MG TABLET PO PRN (15:52)
[2018-01-13] MEDS ORDERED: Nitroglycerin 0.4 MG TAB.SUBL SL PRN (15:57)
[2018-01-13] MEDS ORDERED: *HR* Dextrose 50 % in Water (Syg) 50 ML SYRINGE IVP PRN (15:58)
[2018-01-13] MEDS ORDERED: D5% in Water 1,000 ML IVC PRN (15:58)
[2018-01-13] MEDS ORDERED: Dextrose Gel 15 GM/37.5 ML TUBE PO PRN ×2 (15:58)
[2018-01-13] MEDS ORDERED: 0.9 % Sodium Chloride 1,000 ML IVC SCH (16:00)
[2018-01-13] MEDS ORDERED: *HR* Promethazine 25 MG/ML VIAL IVP PRN (16:21)
[2018-01-13] MEDS ORDERED: *HR* LORazepam 2 MG/ML VIAL IVP PRN ×3 (16:21)
--- NOTE | 2018-01-13 16:29 | Internal Med History&Physical ---
<Pasquale Pruett - Last Filed: 01/13/18 16:23> Date of Encounter: 01/13/18 Time of Encounter: 16:23 Internal Medicine - H&P: HPI Chief complaint: Chest Pain Admitted From: Emergency Dept Plans for Post Hospital Care: Home History of present illness: Mr. Montes De Oca is a 47 year old male with history of hypertension, depression/anxiety , alcohol abuse who presented with chest pain. Patient states that his chest pain started this morning when he woke up. He reports the pain started in the center of his chest and radiated to his left arm. He also some numbness and tingling of his left arm. This pain is worse with activity and better with rest. He reports associated shortness of breath as well as occasional nausea and vomiting. He states he has never had anything like this before. He reports decreased oral intake, particularly with fluids. He reports his blood pressure has been low at home running in the mid 90s over mid 60s. He denies fever, chills, cough, congestion, abdominal pain, dysuria, lower shortness swelling. Patient also reports chronic alcohol abuse. At his most he drinks 6-10 beers daily, he reports over the last couple weeks he has been cutting back and has been drinking 1 beer a day. He states he has been having trouble sleeping since cutting back on alcohol. He denies any tremors, agitation, seizure-like activity. Past Med Surg Social Fam HX - Past Medical History Medical history: hypertension, other Additional medical history: Gout Psychiatric history: no psych history - Past Surgical History Surgical History: non-contributory - Social History Smoking Status: Former smoker Smokeless Tobacco Status: No Alcohol use: heavy Drug use: none - Family History Mother Living Status: Hx Family Cardiac Disorders: Yes ("heart disease") Father Living Status: Hx Family Cardiac Disorders: Yes (hypertension) Hx Family Neurologic Disorders: Yes (stroke) Internal Medicine - H&P: Meds Lisinopril [Zestril] 20 mg PO DAILY 12/15/17 [History] Trazodone HCl 100 mg PO HS 12/15/17 [History] Acetaminophen [Tylenol] 650 mg PO Q6H PRN tablet 12/17/17 [Rx] Calcium Carbonate [Tums] 1,000 mg PO Q4HR PRN tab.chew 12/17/17 [Rx] Omeprazole [PriLOSEC] 40 mg PO BID #60 cap 12/17/17 [Rx] Sucralfate [Carafate] 1 gm PO QIDAC #120 tablet 12/17/17 [Rx] 3 Allergy/AdvReac Type Severity Reaction Status Date / Time No Known Allergies Allergy Verified 01/13/18 16:19 All Systems PM: A 10-system review of systems was performed and is negative for pertinent findings except as documented above in the HPI. - Constitutional Constitutional: no chills, no fever(s) - EENT Eyes: no change in vision Nose, mouth and throat: no sinus pain, no sinus pressure, no sore throat - Cardiovascular Cardiovascular ROS IM: chest pain, dyspnea, dyspnea on exertion, lightheadedness , no edema, no irregular heart rhythm - Respiratory Respiratory: dyspnea, dyspnea on exertion, no cough, no wheezing, no chest congestion, no excessive phlegm production, no change in phlegm color - Gastrointestinal Gastrointestinal: nausea, vomiting, no abdominal pain, no diarrhea - Genitourinary Genitourinary ROS male: no dysuria, no urinary frequency, no urinary urgency - Musculoskeletal Musculoskeletal ROS IM: numbness (L arm), tingling (L arm) - Integumentary Integumentary IM: no erythema, no rash - Neurological Neurological ROS: dizziness, numbness (L arm), no abnormal movements, no abnormal speech, no behavioral changes, no confusion, no convulsions, no weakness - Psychiatric Psychiatric: anxiety, depression, no confusion - Endocrine Endocrine IM: fatigue, no flushing, no polyuria - Hematologic/Lymphatic Hematologic/Lymphatic: no easy bleeding, no easy bruising - Constitutional Vitals: Temp Pulse Resp BP Pulse Ox 97.9 F 74 16 121/84 99 01/13/18 16:21 01/13/18 16:21 01/13/18 16:21 01/13/18 16:21 01/13/18 16:21 General appearance: Present: A&O X 3, no acute distress, answers questions appropriately - Head Head exam: Present: atraumatic, normal inspection, normocephalic - Eye Eye exam: Present: EOMI, PERRL - ENT ENT exam: Present: mucous membranes dry, normal oropharynx - Neck Neck exam general surgery: Present: full ROM, supple - Respiratory Respiratory exam: Present: CTAB. Absent: rales, rhonchi, wheezes - Cardiovascular Cardiovascular exam: Present: RRR. Absent: gallop, irregular rhythm, rubs, systolic murmur Additional comments: Chest wall nontender to palpation - GI/Abdominal GI/Abdominal exam: Present: normal bowel sounds, soft. Absent: distended, tenderness - Extremities Exam Extremities exam: Present: warm. Absent: pedal edema, tenderness - Neurological Exam Neurological exam: Present: alert, CN II-XII intact, oriented X3, no focal deficits - Psychiatric Psychiatric exam: Present: anxious (mild), normal affect, normal mood Internal Med - H&P Results - Labs CBC & Chem 7: 01/13/18 14:13 01/13/18 14:13 - EKG Data -: EKG Interpreted by Myself EKG shows normal: sinus rhythm, ST-T waves (no ischemic changes note) - EKG Data Prior EKG available for review: yes When compared to previous EKG: there is no significant change Interpretation IM: normal EKG - Diagnostic Studies Chest x-ray Status: image reviewed by me Additional comments: No acute process - Assessment and plan (1) Chest pain Current Visit: Yes Status: Acute Assessment and plan: Patient reports chest pain that began this morning that is substernal and described as pressure and radiates to the left arm. This pain is exacerbated by exertion and improved with rest. He reports associated shortness of breath as well as nausea and vomiting. Given the symptoms and concerned for ischemic chest pain. EKG was reviewed and shows no ischemic changes and is unchanged from previous EKGs. Initial troponin was negative. We will trend troponins, patient was given 324 mg of aspirin in the emergency department, we will give atorvastatin 40 mg tonight. Nitroglycerin 0.4 mg sublingual when necessary has been ordered. We will continue to trend troponins, plan for cardiac stress testing in the morning, patient feels that he cannot complete an exercise stress test so we will proceed with pharmacologic nuclear stress test. Patient will be kept nothing by mouth after midnight. Qualifiers: Chest pain type: unspecified Qualified Code(s): R07.9 - Chest pain, unspecified (2) Alcoholism Current Visit: No Status: Acute Assessment and plan: Patient reports chronic alcohol abuse for which she has been cutting back. He reports that he is now drinking one beer a day. He feels that he is cutting back on alcohol has caused him difficulty sleeping. Patient is also had liver dysfunction with elevated AST and ALT in the past and is noted to have a mildly decreased platelet count at 135 as well as an INR of 1.2. We will check hepatic panel in the morning. Continue to encourage alcohol cessation. We will monitor for alcohol withdrawal with [facility] protocol. We will provide folic acid and thiamine supplementation. (3) Hypoglycemia Current Visit: Yes Status: Acute Assessment and plan: Glucose is 58 on presentation. Patient feels generally fatigued but otherwise is asymptomatic. Likely nutritional in the setting of poor by mouth intake as well as chronic alcohol abuse. He reports that the last time he ate was a bowl of cereal at 3 AM. Have ordered a train encourage the patient to eat. We will check blood sugar every 6 hours. We will start the patient on maintenance IV fluid after a 1 L bolus. We will use normal saline as the bolus fluid and D5 in normal saline as the maintenance fluid. As needed anti-hypoglycemic medications have been ordered (4) Insomnia Current Visit: Yes Status: Acute Assessment and plan: Patient reports difficulty sleeping at home. He feels like this is worse since he has cut back on his alcohol consumption. He reports trazodone was ineffective at home. I encouraged him to continue to cut back on his alcohol consumption and we will work on his insomnia. Will order melatonin 9 mg daily at bedtime when necessary and continue to adjust medications on an outpatient basis. Qualifiers: Insomnia type: alcohol-induced Qualified Code(s): F10.982 - Alcohol use, unspecified with alcohol-induced sleep disorder (5) Anxiety and depression Current Visit: Yes Status: Acute Assessment and plan: Patient reports worsening of his anxiety and depression, he feels like this may related to his cutting back on alcohol. Patient had been taking trazodone 100 mg nightly at home however this is ineffective. We will follow-up with the patient as an outpatient and discuss further treatment options. No suicidal ideation expressed. (6) Hypertension Current Visit: Yes Status: Acute Assessment and plan: Patient has history of hypertension however his blood pressure fluctuates at home and he only takes lisinopril when his blood pressure is high at home. He is normotensive on exam however does report mild hypotension with a blood pressure in the 90s over 60s at home. Will hold antihypertensive medications and continue to monitor. Qualifiers: Hypertension type: essential hypertension Qualified Code(s): I10 - Essential (primary) hypertension (7) GERD (gastroesophageal reflux disease) Current Visit: Yes Status: Acute Assessment and plan: Patient follows with GI as an outpatient. Continue omeprazole 40 mg twice a day and Carafate 1 g by mouth 4 times a day Qualifiers: Esophagitis presence: esophagitis presence not specified Qualified Code(s) : K21.9 - Gastro-esophageal reflux disease without esophagitis (8) DVT prophylaxis Current Visit: No Status: Acute Assessment and plan: Lovenox 40 mg subcutaneous daily (9) Hyponatremia Current Visit: Yes Status: Acute Assessment and plan: Mild at 130 which is where the patient normally is. Likely hypovolemic in the setting of poor oral intake and poor nutrition due to chronic alcohol abuse. No evidence of fluid overload. Asymptomatic at this time. We will give 1 L bolus of normal saline and give maintenance fluids with D5 in normal saline. Recheck sodium in the morning, if not improved will pursue further workup including measured serum osmolality and urine sodium. - Time Spent With Patient Total time spent is greater than 50% in coordination of care (as documented) at patient's floor/unit and/or counseling patient: <Lv Hoskins - Last Filed: 01/13/18 18:39> Date of Encounter: 01/13/18 Internal Medicine - H&P: HPI History of present illness: Mr. Montes De Oca is a 47 year old male All Systems PM: A 10-system review of systems was performed and is negative for pertinent findings except as documented above in the HPI. - Constitutional Vitals: Temp Pulse Resp BP Pulse Ox 97.9 F 87 15 120/83 99 01/13/18 16:21 01/13/18 17:44 01/13/18 17:44 01/13/18 17:44 01/13/18 16:21 Internal Med - H&P Results - Labs CBC & Chem 7: 01/13/18 14:13 01/13/18 14:13 - Attending Attestation I examined this patient and my medical decision-making was reviewed with the Resident Physician Dr. Pruett. I agree with the documented findings, disposition and treatment plan as described except to the extent set forth below. Mr. Montes De Oca is a 47 year old male with history of hypertension, depression/anxiety , alcohol abuse who presented with chest pain. Patient states that his chest pain started this morning when he woke up. He reports the pain started in the center of his chest and radiated to his left arm. He denied any active CP now. Gen: A, A, O x 3 Chest: Diminished BS b/l Heart: S1S2+ RRR a/p 1. Acute chest pain So far negative trop check serial trop on tele high risk for ACS, will get exercise stress test in AM Also will get 2 D Echo in AM 2. Depression / Anxiety cont Trazodone recommend out pt f/u [facility] behavioral therapist 3. Alcohol dependence on [facility] protocol - Assessment and plan (1) Alcoholism Current Visit: No Status: Acute (2) DVT prophylaxis Current Visit: No Status: Acute (3) Chest pain Current Visit: Yes Status: Acute Qualifiers: Chest pain type: unspecified Qualified Code(s): R07.9 - Chest pain, unspecified (4) Hypoglycemia Current Visit: Yes Status: Acute (5) Insomnia Current Visit: Yes Status: Acute Qualifiers: Insomnia type: alcohol-induced Qualified Code(s): F10.982 - Alcohol use, unspecified with alcohol-induced sleep disorder (6) Anxiety and depression Current Visit: Yes Status: Acute (7) Hypertension Current Visit: Yes Status: Acute Qualifiers: Hypertension type: essential hypertension Qualified Code(s): I10 - Essential (primary) hypertension (8) GERD (gastroesophageal reflux disease) Current Visit: Yes Status: Acute Qualifiers: Esophagitis presence: esophagitis presence not specified Qualified Code(s) : K21.9 - Gastro-esophageal reflux disease without esophagitis (9) Hyponatremia Current Visit: Yes Status: Acute - Time Spent With Patient Total time spent is greater than 50% in coordination of care (as documented) at patient's floor/unit and/or counseling patient:
[2018-01-13] MEDS: Folic Acid 1 MG TABLET PO SCH (17:40)
[2018-01-13] MEDS: Thiamine (B-1) 100 MG TABLET PO SCH (17:40)
[2018-01-13] MEDS: D5% in 0.9% NACL 1,000 ML IVC SCH (17:43)
[2018-01-13] MEDS: Sucralfate 1 GM TABLET PO SCH (20:17)
[2018-01-14 02:48] VITALS: BP 108/72
[2018-01-14 03:17] LABS: Basophils % 0.8 %; Eosinophils # 0.1 K/mcL (0.0-0.6); Eosinophils % 2.5 %; Hematocrit 39.9 % (37.5-50.1); Immature Granulocytes % 0.6 % (0-4); Lymphocytes # 1.1 K/mcL (0.6-4.6); Lymphocytes % 31.2 %; Mean Corpuscular HGB Conc 34.3 g/dL (31.6-35.5); Mean Corpuscular Hemoglobin 33.4 pg (28.0-33.3); Mean Corpuscular Volume 97.3 fL (83.0-100.0); Mean Platelet Volume 9.8 fL (9.4-12.4); Monocytes # 0.3 K/mcL (0.0-1.3); Monocytes % 7.2 %; Neutrophils # 2.1 K/mcL (1.6-8.9); Platelet Count 109 K/mcL (140-400); Red Cell Distribution Width 14.2 % (11.5-14.5); Segmented Neutrophils % 57.7 %
[2018-01-14 03:21] LABS: BUN/Creatinine Ratio 7 (6-26); Blood Urea Nitrogen 8 mg/dL (6-20); Carbon Dioxide 16 mEq/L (23-29); Chloride 106 mEq/L (98-107); Chol/HDL Ratio 27.3 (0-4.9); Cholesterol 218 mg/dL (< 200); Glucose 62 mg/dL (70-105); HDL Cholesterol 8 mg/dL (40-59); Magnesium 1.8 mg/dL (1.6-2.6); Osmolality,Calculated 268 (280-300); Potassium 3.7 mEq/L (3.5-5.1); Sodium 131 mEq/L (136-145); Triglycerides 971 mg/dL (< 150); eGFR For African Americans > 60 (> 60); eGFR For Non-African Americans > 60 (> 60)
[2018-01-14 03:25] LABS: Hemoglobin 13.7 g/dL (12.9-16.9)
[2018-01-14] MEDS: D5% in 0.9% NACL 1,000 ML IVC SCH (04:01)
[2018-01-14 04:05] LABS: Albumin 2.6 g/dL (3.5-5.7); Albumin/Globulin Ratio 0.9 (1.1-2.2); Bilirubin,Direct 1.9 mg/dL (0.0-0.2); Bilirubin,Indirect 1.7 mg/dL (0.0-1.2); Bilirubin,Total 3.6 mg/dL (0.3-1.0); Globulin 2.9 g/dL (2.4-3.5); Total Protein 5.5 g/dL (6.4-8.9)
[2018-01-14] MEDS ORDERED: *HR* Enoxaparin 40 MG/0.4 ML SYRINGE SQ SCH (06:00)
[2018-01-14] MEDS ORDERED: Regadenoson 0.4 MG/5 ML SYRINGE IVP ONE (06:02)
--- NOTE | 2018-01-14 07:19 | Electrocardiograph Report ---
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
[2018-01-14] MEDS ORDERED: Aspirin Enteric Coated 81 MG Tablet PO SCH (09:00)
[2018-01-14] MEDS: Folic Acid 1 MG TABLET PO SCH (09:08)
[2018-01-14] MEDS: Thiamine (B-1) 100 MG TABLET PO SCH (09:08)
[2018-01-14] MEDS: Sucralfate 1 GM TABLET PO SCH (09:08)
--- NOTE | 2018-01-14 10:53 | Discharge Summary ---
<Pasquale Pruett - Last Filed: 01/14/18 12:43> Orders not resulted at time of discharge: Pending orders 01/13/18 15:51 NM roro perf SPECT multi [NM] Routine Date of Encounter: 01/14/18 Time of Encounter: 10:00 - Discharge Diagnosis (1) Chest pain Priority: Primary Status: Resolved Qualifiers: Chest pain type: unspecified Qualified Code(s): R07.9 - Chest pain, unspecified (2) Alcoholism Priority: Secondary Status: Chronic (3) Hyponatremia Priority: Secondary Status: Chronic (4) Hypoglycemia Priority: Secondary Status: Acute (5) Insomnia Priority: Secondary Status: Chronic Qualifiers: Insomnia type: alcohol-induced Qualified Code(s): F10.982 - Alcohol use, unspecified with alcohol-induced sleep disorder (6) Anxiety and depression Priority: Secondary Status: Chronic (7) Hypertension Priority: Secondary Status: Resolved Qualifiers: Hypertension type: essential hypertension Qualified Code(s): I10 - Essential (primary) hypertension (8) GERD (gastroesophageal reflux disease) Priority: Secondary Status: Chronic Qualifiers: Esophagitis presence: esophagitis presence not specified Qualified Code(s) : K21.9 - Gastro-esophageal reflux disease without esophagitis (9) Hyperlipidemia Priority: Secondary Status: Chronic Qualifiers: Hyperlipidemia type: mixed hyperlipidemia Qualified Code(s): E78.2 - Mixed hyperlipidemia (10) Hypertriglyceridemia Priority: Secondary Status: Chronic Hospital course: Mr. Montes De Oca is a 47 year old male with history of hypertension and chronic alcohol abuse presented with chest pain. Patient's chest pain symptoms were concerning for cardiac origin and therefore is admitted and underwent cardiac stress testing with nuclear medicine scan as well as echocardiography that was unremarkable for any cardiac origin of the patient's symptoms. Patient was noted to have significantly elevated triglycerides as well as hepatic dysfunction. His hepatic dysfunction was chronic due to alcohol use. Unfortunately given his chronic liver dysfunction we were limited with the medication choices for his cholesterol and triglyceride levels therefore he was discharged home on lovaza. Patient's liver numbers were stable from one month ago. He states he has cut back his drinking but still drinks about one beer a day. I encouraged him strongly and we discussed at length the adverse effects of chronic alcohol use and strongly encouraged him to abstain from alcohol. The patient will be discharged home in stable condition. Discharge discussed with: patient, nurse - Time Spent with Patient Total time spent providing and/or coordinating discharge services: - Discharge Medications Prescriptions: hydrOXYzine pamoate [HydrOXYzine Pamoate] 50 mg PO HS #30 cap [place]-3 Acid Ethyl Esters [Lovaza] 4 gm PO DAILY #120 capsule Home Medications: Lisinopril [Zestril] 20 mg PO DAILY 12/15/17 [History] Trazodone HCl 100 mg PO HS 12/15/17 [History] Acetaminophen [Tylenol] 650 mg PO Q6H PRN tablet 12/17/17 [Rx] Calcium Carbonate [Tums] 1,000 mg PO Q4HR PRN tab.chew 12/17/17 [Rx] Omeprazole [PriLOSEC] 40 mg PO BID #60 cap 12/17/17 [Rx] Sucralfate [Carafate] 1 gm PO QIDAC #120 tablet 12/17/17 [Rx] [place]-3 Acid Ethyl Esters [Lovaza] 4 gm PO DAILY #120 capsule 01/14/18 [Rx] hydrOXYzine pamoate [HydrOXYzine Pamoate] 50 mg PO HS #30 cap 01/14/18 [Rx] Allergies/Adverse Reactions: 3 Allergy/AdvReac Type Severity Reaction Status Date / Time No Known Allergies Allergy Verified 01/13/18 16:19 Date of admission: 01/13/18 15:39 Primary care physician: Pasquale Pruett, Discharging clinician: Pasquale Pruett Anticipated date of discharge: 01/14/18 - Constitutional Vitals: Temp Pulse Resp BP Pulse Ox 97.7 F 73 16 108/72 99 01/14/18 02:47 01/14/18 02:47 01/14/18 02:47 01/14/18 02:47 01/14/18 02:47 General appearance: Present: A&O X 3, no acute distress, answers questions appropriately - Respiratory Respiratory exam: Present: CTAB. Absent: rales, rhonchi, wheezes - Cardiovascular Cardiovascular exam: Present: RRR. Absent: gallop, rubs, systolic murmur - GI/Abdominal GI/Abdominal exam: Present: normal bowel sounds, soft. Absent: distended, tenderness - Extremities Exam Extremities exam: Present: warm. Absent: pedal edema, tenderness - Neurological Exam Neurological exam: Present: alert, oriented X3. Absent: no focal deficits - Patient Status Disposition: Home, Self-Care Condition: Good Functional capacity at discharge: independent ambulation Overall status at discharge: patient is progressing back to baseline - Discharge Instructions Instructions: Hydroxyzine (By mouth), Ehyqj-2-Hcml Ethyl Esters (By mouth), Chest Pain (DC) Follow Up With: Pasquale Pruett, DO [Primary Care Provider] - 01/18/18 2:30 pm Additional Instructions: Please follow up with Dr. Pruett as scheduled. Please do your best to abstain from all alcohol. Please take Lovaza daily. Please take hydroxizine at bedtime for insomnia Please return for new or worsening symptoms - Diet and Activity Activity: increase activity as tolerated Diet: advance to your usual diet <Fatemeh Resendiz - Last Filed: 01/14/18 17:47> Orders not resulted at time of discharge: Pending orders 01/13/18 15:51 NM roro perf SPECT multi [NM] Routine 01/14/18 10:40 Hgb A1C Routine Date of Encounter: 01/14/18 - Discharge Diagnosis (1) Alcoholism Status: Chronic (2) Chest pain Status: Resolved Qualifiers: Chest pain type: unspecified Qualified Code(s): R07.9 - Chest pain, unspecified (3) Hypoglycemia Status: Acute (4) Insomnia Status: Chronic Qualifiers: Insomnia type: alcohol-induced Qualified Code(s): F10.982 - Alcohol use, unspecified with alcohol-induced sleep disorder (5) Anxiety and depression Status: Chronic (6) Hypertension Status: Resolved Qualifiers: Hypertension type: essential hypertension Qualified Code(s): I10 - Essential (primary) hypertension (7) GERD (gastroesophageal reflux disease) Status: Chronic Qualifiers: Esophagitis presence: esophagitis presence not specified Qualified Code(s) : K21.9 - Gastro-esophageal reflux disease without esophagitis (8) Hyponatremia Status: Chronic (9) Hyperlipidemia Status: Chronic Qualifiers: Hyperlipidemia type: mixed hyperlipidemia Qualified Code(s): E78.2 - Mixed hyperlipidemia (10) Hypertriglyceridemia Status: Chronic Hospital course: Mr. Montes De Oca is a 47 year old male - Time Spent with Patient Total time spent providing and/or coordinating discharge services: Date of admission: 01/13/18 15:39 Primary care physician: Pasquale Pruett, - Constitutional Vitals: Temp Pulse Resp BP Pulse Ox 97.7 F 73 16 108/72 99 01/14/18 02:47 01/14/18 02:47 01/14/18 02:47 01/14/18 02:47 01/14/18 02:47 - Attending Attestation I examined this patient and my medical decision-making was reviewed with the Resident Physician. I agree with the documented findings, disposition and treatment plan as described except to the extent set forth below.
[2018-01-18 09:45] LABS: Estimated Average Glucose 85 mg/dl; Hemoglobin A1C 4.6 %
== END 2018-01-14 11:27 | disposition home or self-care (01) ==
LOC: EMEROO 13:46 → 3BNU 13:46 → SUATTDRO 15:39 → 3BNU 16:00
PROVIDERS: ADMIT Family Medicine; ATTEND Student in an Organized Health Care Education/Training Program

== ENCOUNTER 2018-10-14 14:20 | Observation (INO) ==
--- NOTE | 2018-10-14 18:52 | Emergency Department Note ---
Disposition Clinical Impression: Alcohol abuse Depression Qualifiers: Depression Type: unspecified Qualified Code(s): F32.9 - Major depressive disorder, single episode, unspecified Disposition: Still a Patient Condition: Fair Instructions: Depression (ED), Alcohol Use Disorder (ED) Referrals: NONE,PCP [Primary Care Provider] - Forms: ED Satisfaction Letter Time of Disposition: 21:19 General Adult HPI - General Chief complaint: ED Alcohol Abuse Stated complaint: ETOH withdraw Time Seen by Provider: 10/14/18 18:33 Source: patient Mode of arrival: ambulatory Limitations: no limitations Nursing Notes Reviewed: Yes Vital Signs Reviewed: Yes - History of Present Illness HPI Narrative: 48 yo male with PMHx of HTN, HLD, and alcoholism presents to the emergency department from the residency clinic for symptoms of alcohol withdrawal. He states that the resident told him that he should be admitted to be watched for 48 hours for continued withdrawal symptoms as he stopped drinking alcohol on Wednesday. He states when he was working every day he would drink about a 6 pack of beer per day, once he lost his job at 1 down to 1-2 beers per day. He has been experiencing a lot of stress and anxiety recently as he has had many n egative things happen to him in the past year. He stopped drinking on Wednesday to try to get sober enough to get a job. He denies any thoughts of hurting himself or others. He denies any symptoms from alcohol withdrawal besides some minor tremors. He is requesting medication for depression and anxiety but his therapist and the resident did not feel comfortable discharging him home with these medications as he lives alone. Patient denies fever, recent illnesses, abdominal pain. He has been vomiting a lot more recently but he thinks this is secondary to his high levels of stress. Pain Scale: 0 - Related Data Home Medications Medication Instructions Recorded Confirmed Lisinopril [Zestril] 20 mg PO DAILY 12/15/17 01/13/18 Trazodone HCl 100 mg PO HS 12/15/17 01/13/18 Previous Rx's Medication Instructions Recorded Acetaminophen [Tylenol] 650 mg PO Q6H PRN tablet 12/17/17 Calcium Carbonate [Tums] 1,000 mg PO Q4HR PRN tab.chew 12/17/17 Omeprazole [PriLOSEC] 40 mg PO BID #60 cap 12/17/17 Sucralfate [Carafate] 1 gm PO QIDAC #120 tablet 12/17/17 [place]-3 Acid Ethyl Esters [Lovaza] 4 gm PO DAILY #120 capsule 01/14/18 hydrOXYzine pamoate [HydrOXYzine 50 mg PO HS #30 cap 01/14/18 Pamoate] Allergies Allergy/AdvReac Type Severity Reaction Status Date / Time No Known Allergies Allergy Verified 10/14/18 15:01 All systems ED: reviewed and negative except as stated. Review of Systems: As Per HPI Constitutional: Denies: fever, chills, weakness Cardiovascular: Denies: chest pain, palpitations, dyspnea on exertion Respiratory: Denies: cough, dyspnea, wheezes Gastrointestinal: Reports: nausea, vomiting. Denies: abdominal pain, diarrhea, constipation Musculoskeletal: Denies: back pain, neck pain Integumentary: Denies: rash Neurological: Reports: other (Tremors). Denies: headache, weakness Psychiatric: Reports: anxiety, depression. Denies: suicidal thoughts, homicidal thoughts, auditory hallucinations, visual hallucinations Endocrine: Denies: fatigue Past Medical History - Past Medical History Attestation: Yes The following information was validated with the patient. Source: patient Medical history: Reports: hypertension, other Surgical history: Reports: non-contributory Psychiatric history: Reports: no psych history - Social History Smoking Status: Former smoker Smokeless Tobacco Status: No Alcohol use: Reports: heavy, recent Drug use: Reports: cocaine, marijuana Physical Exam - General Limitations: no limitations General appearance: alert, in no apparent distress - Head Head exam: atraumatic, normocephalic - Eye Eye exam: Present: normal appearance, PERRL, EOMI - ENT ENT exam: normal exam, normal oropharynx - Neck Neck exam: Present: normal inspection. Absent: tenderness, lymphadenopathy - Chest Chest inspection: Present: normal inspection. Absent: tenderness - Respiratory Respiratory exam: Present: normal lung sounds bilaterally - Cardiovascular Cardiovascular exam: Present: regular rate, normal rhythm - Abdominal Exam Abdominal exam: Present: soft, Non-Tender. Absent: distention, guarding, rebound, rigidity - Extremities Exam Extremities exam: Present: normal inspection. Absent: tenderness, pedal edema - Neurological Exam Neurological exam: Present: alert, oriented X3 - Psychiatric Psychiatric exam: Present: normal affect, normal mood. Absent: agitated, anxious, homicidal ideation, suicidal ideation - Skin Skin exam: Present: warm, dry, intact Course Vital Signs Temperature 98.5 F 10/14/18 14:54 Pulse Rate 93 10/14/18 14:54 Respiratory Rate 18 10/14/18 14:54 Blood Pressure 121/86 10/14/18 14:54 O2 Sat by Pulse Oximetry 97 10/14/18 14:54 Temperature 98.5 F 10/14/18 19:34 Pulse Rate 89 10/14/18 20:43 Respiratory Rate 18 10/14/18 19:34 Blood Pressure 147/100 10/14/18 20:43 O2 Sat by Pulse Oximetry 100 10/14/18 19:34 Oxygen Delivery Oxygen Delivery Room Air Medical Decision Making - MDM Narrative Medical decision making narrative: This patient has many risk factors for suicide including history of alcoholism with recent cessation of alcohol use, loss of family members and social support system, living alone, male gender, and unemployment. The patient is not exhibiting significant signs of alcohol withdrawal that would need him to be medically treated but we are worried about his social circumstance. We will do a psych clearance and have 1A called once those have resulted for a psych eval and further plan. 2029 - patient's lab work has returned normal. 1A has been called. 2119 - Pt has not been seen by 1A at this time. He will be signed out to the night team for follow up on 1A's evaluation. - Medical Records Medical records reviewed: Yes I reviewed the patient's medical records. - Lab Data Lab results reviewed: Yes I reviewed the patient's lab results. Result diagrams: 10/14/18 19:39 10/14/18 19:39 Lab Results 10/14/18 10/14/18 10/14/18 Range/Units 19:05 19:32 19:39 WBC 5.5 (4.3-11.1) K/mcL RBC 5.37 (4.19-5.50) M/mcL Hgb 17.2 H (12.9-16.9) g/dL Hct 50.5 H (37.5-50.1) % MCV 94.0 (83.0-100.0) fL MCH 32.0 (28.0-33.3) pg MCHC 34.1 (31.6-35.5) g/dL RDW 12.4 (11.5-14.5) % Plt Count 201 (140-400) K/mcL MPV 9.1 L (9.4-12.4) fL Immature Gran % 0.4 (0-4) % Seg Neutrophils % 75.1 % Lymphocytes % 12.7 % Monocytes % 10.7 % Eosinophils % 0.4 % Basophils % 0.7 % Neutrophils # 4.1 (1.6-8.9) K/mcL Lymphocytes # 0.7 (0.6-4.6) K/mcL Monocytes # 0.6 (0.0-1.3) K/mcL Eosinophils # 0.0 (0.0-0.6) K/mcL Basophils # 0.0 (0.0-0.2) K/mcL Sodium (136-145) mEq/L Potassium (3.5-5.1) mEq/L Chloride (98-107) mEq/L Carbon Dioxide (23-29) mEq/L BUN (6-20) mg/dL Creatinine (0.70-1.30) mg/dL Est GFR ( Amer) (> 60) Est GFR (Non-Af Amer) (> 60) BUN/Creatinine Ratio (6-26) Glucose (70-105) mg/dL Calculated Osmolality (280-300) Calcium (8.6-10.3) mg/dL Urine Color Dark Yellow (Yellow) Urine Clarity Clear (Clear) Urine pH 7.0 (5.0-8.0) pH Units Ur Specific [place] 1.011 (1.010-1.025) Urine Protein 30 H (Neg-Trace) mg/dL Urine Glucose (UA) Normal (Normal) mg/dL Urine Ketones 15 H (Negative) mg/dL Urine Blood Negative (Negative) Urine Nitrite Negative (Negative) Urine Bilirubin Small H (Negative) Urine Urobilinogen Normal (Normal) mg/dL Ur Leukocyte Esterase Negative (Negative) Urine Microscopic RBC 0-3 (0-3) per hpf Urine Microscopic WBC 0-3 (0-3) per hpf Ur Squamous Epith Cells None Seen (None-Few) per lpf Urine Bacteria None Seen (None-Few) per hpf Hyaline Casts None Seen (None-Few) per lpf Salicylates (15.0-30.0) mg/dL Urine Opiates Screen Negative (Siqyzt=337) ng/mL Acetaminophen (10-20) mcg/mL Ur Barbiturates Screen Negative (Hsbzdi=679) ng/mL Ur Phencyclidine Scrn Negative (Cutoff=25) ng/mL Ur Amphetamines Screen Negative (Mktlgo=3722) ng/mL U Benzodiazepines Scrn Negative (Gbusyp=571) ng/mL Urine Cocaine Screen Negative (Cutoff= 300) ng/mL U Marijuana (THC) Screen Negative (Cutoff = 50) ng/mL Ur Drug Screen Interp See Below Ethyl Alcohol (Less than 10) mg/dL 10/14/18 Range/Units 19:39 WBC (4.3-11.1) K/mcL RBC (4.19-5.50) M/mcL Hgb (12.9-16.9) g/dL Hct (37.5-50.1) % MCV (83.0-100.0) fL MCH (28.0-33.3) pg MCHC (31.6-35.5) g/dL RDW (11.5-14.5) % Plt Count (140-400) K/mcL MPV (9.4-12.4) fL Immature Gran % (0-4) % Seg Neutrophils % % Lymphocytes % % Monocytes % % Eosinophils % % Basophils % % Neutrophils # (1.6-8.9) K/mcL Lymphocytes # (0.6-4.6) K/mcL Monocytes # (0.0-1.3) K/mcL Eosinophils # (0.0-0.6) K/mcL Basophils # (0.0-0.2) K/mcL Sodium 135 L (136-145) mEq/L Potassium 3.9 (3.5-5.1) mEq/L Chloride 99 (98-107) mEq/L Carbon Dioxide 27 (23-29) mEq/L BUN 6 (6-20) mg/dL Creatinine 1.12 (0.70-1.30) mg/dL Est GFR ( Amer) > 60 (> 60) Est GFR (Non-Af Amer) > 60 (> 60) BUN/Creatinine Ratio 5 L (6-26) Glucose 121 H (70-105) mg/dL Calculated Osmolality 279 L (280-300) Calcium 9.2 (8.6-10.3) mg/dL Urine Color (Yellow) Urine Clarity (Clear) Urine pH (5.0-8.0) pH Units Ur Specific [place] (1.010-1.025) Urine Protein (Neg-Trace) mg/dL Urine Glucose (UA) (Normal) mg/dL Urine Ketones (Negative) mg/dL Urine Blood (Negative) Urine Nitrite (Negative) Urine Bilirubin (Negative) Urine Urobilinogen (Normal) mg/dL Ur Leukocyte Esterase (Negative) Urine Microscopic RBC (0-3) per hpf Urine Microscopic WBC (0-3) per hpf Ur Squamous Epith Cells (None-Few) per lpf Urine Bacteria (None-Few) per hpf Hyaline Casts (None-Few) per lpf Salicylates < 2.5 L (15.0-30.0) mg/dL Urine Opiates Screen (Ztjpcl=711) ng/mL Acetaminophen < 10 L (10-20) mcg/mL Ur Barbiturates Screen (Maqdfu=777) ng/mL Ur Phencyclidine Scrn (Cutoff=25) ng/mL Ur Amphetamines Screen (Khauea=9115) ng/mL U Benzodiazepines Scrn (Twyggk=148) ng/mL Urine Cocaine Screen (Cutoff= 300) ng/mL U Marijuana (THC) Screen (Cutoff = 50) ng/mL Ur Drug Screen Interp Ethyl Alcohol < 10 (Less than 10) mg/dL
--- NOTE | 2018-10-14 19:41 | Emergency Department Note ---
Disposition Clinical Impression: Alcohol abuse, Alcohol withdrawal syndrome Depression Qualifiers: Depression Type: unspecified Qualified Code(s): F32.9 - Major depressive disorder, single episode, unspecified Disposition: Admitted As Inpatient Condition: Fair Instructions: Depression (ED), Alcohol Use Disorder (ED) Referrals: NONE,PCP [Primary Care Provider] - Forms: ED Satisfaction Letter General Adult HPI - General Chief complaint: ED Alcohol Abuse Stated complaint: ETOH withdraw Time Seen by Provider: 10/14/18 18:33 Source: patient Mode of arrival: ambulatory Limitations: no limitations - History of Present Illness Pain Scale: 0 - Related Data Home Medications Medication Instructions Recorded Confirmed Lisinopril [Zestril] 20 mg PO DAILY 12/15/17 01/13/18 Trazodone HCl 100 mg PO HS 12/15/17 01/13/18 Previous Rx's Medication Instructions Recorded Acetaminophen [Tylenol] 650 mg PO Q6H PRN tablet 12/17/17 Calcium Carbonate [Tums] 1,000 mg PO Q4HR PRN tab.chew 12/17/17 Omeprazole [PriLOSEC] 40 mg PO BID #60 cap 12/17/17 Sucralfate [Carafate] 1 gm PO QIDAC #120 tablet 12/17/17 [place]-3 Acid Ethyl Esters [Lovaza] 4 gm PO DAILY #120 capsule 01/14/18 hydrOXYzine pamoate [HydrOXYzine 50 mg PO HS #30 cap 01/14/18 Pamoate] Allergies Allergy/AdvReac Type Severity Reaction Status Date / Time No Known Allergies Allergy Verified 10/14/18 15:01 Constitutional: Denies: fever, chills, weakness Cardiovascular: Denies: chest pain, palpitations, dyspnea on exertion Respiratory: Denies: cough, dyspnea, wheezes Gastrointestinal: Reports: nausea, vomiting. Denies: abdominal pain, diarrhea, constipation Musculoskeletal: Denies: back pain, neck pain Integumentary: Denies: rash Neurological: Reports: other (Tremors). Denies: headache, weakness Psychiatric: Reports: anxiety, depression. Denies: suicidal thoughts, homicidal thoughts, auditory hallucinations, visual hallucinations Endocrine: Denies: fatigue Past Medical History - Past Medical History Medical history: Reports: hypertension, other Surgical history: Reports: non-contributory Psychiatric history: Reports: no psych history - Social History Smoking Status: Former smoker Smokeless Tobacco Status: No Alcohol use: Reports: heavy, recent Drug use: Reports: cocaine, marijuana Physical Exam - General Limitations: no limitations General appearance: alert, in no apparent distress Course - Consultations Consultation #1: Dr. reilly accepts for admission Time: 23:40 Vital Signs Temperature 98.5 F 10/14/18 14:54 Pulse Rate 93 10/14/18 14:54 Respiratory Rate 18 10/14/18 14:54 Blood Pressure 121/86 10/14/18 14:54 O2 Sat by Pulse Oximetry 97 10/14/18 14:54 Temperature 98.5 F 10/14/18 19:34 Pulse Rate 89 10/14/18 20:43 Respiratory Rate 18 10/14/18 19:34 Blood Pressure 147/100 10/14/18 20:43 O2 Sat by Pulse Oximetry 100 10/14/18 19:34 Oxygen Delivery Oxygen Delivery Room Air Medical Decision Making - Lab Data Result diagrams: 10/14/18 19:39 10/14/18 19:39 Lab Results 10/14/18 10/14/18 10/14/18 Range/Units 19:05 19:32 19:39 WBC 5.5 (4.3-11.1) K/mcL RBC 5.37 (4.19-5.50) M/mcL Hgb 17.2 H (12.9-16.9) g/dL Hct 50.5 H (37.5-50.1) % MCV 94.0 (83.0-100.0) fL MCH 32.0 (28.0-33.3) pg MCHC 34.1 (31.6-35.5) g/dL RDW 12.4 (11.5-14.5) % Plt Count 201 (140-400) K/mcL MPV 9.1 L (9.4-12.4) fL Immature Gran % 0.4 (0-4) % Seg Neutrophils % 75.1 % Lymphocytes % 12.7 % Monocytes % 10.7 % Eosinophils % 0.4 % Basophils % 0.7 % Neutrophils # 4.1 (1.6-8.9) K/mcL Lymphocytes # 0.7 (0.6-4.6) K/mcL Monocytes # 0.6 (0.0-1.3) K/mcL Eosinophils # 0.0 (0.0-0.6) K/mcL Basophils # 0.0 (0.0-0.2) K/mcL Sodium (136-145) mEq/L Potassium (3.5-5.1) mEq/L Chloride (98-107) mEq/L Carbon Dioxide (23-29) mEq/L BUN (6-20) mg/dL Creatinine (0.70-1.30) mg/dL Est GFR ( Amer) (> 60) Est GFR (Non-Af Amer) (> 60) BUN/Creatinine Ratio (6-26) Glucose (70-105) mg/dL Calculated Osmolality (280-300) Calcium (8.6-10.3) mg/dL Urine Color Dark Yellow (Yellow) Urine Clarity Clear (Clear) Urine pH 7.0 (5.0-8.0) pH Units Ur Specific [place] 1.011 (1.010-1.025) Urine Protein 30 H (Neg-Trace) mg/dL Urine Glucose (UA) Normal (Normal) mg/dL Urine Ketones 15 H (Negative) mg/dL Urine Blood Negative (Negative) Urine Nitrite Negative (Negative) Urine Bilirubin Small H (Negative) Urine Urobilinogen Normal (Normal) mg/dL Ur Leukocyte Esterase Negative (Negative) Urine Microscopic RBC 0-3 (0-3) per hpf Urine Microscopic WBC 0-3 (0-3) per hpf Ur Squamous Epith Cells None Seen (None-Few) per lpf Urine Bacteria None Seen (None-Few) per hpf Hyaline Casts None Seen (None-Few) per lpf Salicylates (15.0-30.0) mg/dL Urine Opiates Screen Negative (Ohnxmy=311) ng/mL Acetaminophen (10-20) mcg/mL Ur Barbiturates Screen Negative (Voiymu=430) ng/mL Ur Phencyclidine Scrn Negative (Cutoff=25) ng/mL Ur Amphetamines Screen Negative (Vmxpsf=9574) ng/mL U Benzodiazepines Scrn Negative (Ubqxhp=669) ng/mL Urine Cocaine Screen Negative (Cutoff= 300) ng/mL U Marijuana (THC) Screen Negative (Cutoff = 50) ng/mL Ur Drug Screen Interp See Below Ethyl Alcohol (Less than 10) mg/dL 10/14/18 Range/Units 19:39 WBC (4.3-11.1) K/mcL RBC (4.19-5.50) M/mcL Hgb (12.9-16.9) g/dL Hct (37.5-50.1) % MCV (83.0-100.0) fL MCH (28.0-33.3) pg MCHC (31.6-35.5) g/dL RDW (11.5-14.5) % Plt Count (140-400) K/mcL MPV (9.4-12.4) fL Immature Gran % (0-4) % Seg Neutrophils % % Lymphocytes % % Monocytes % % Eosinophils % % Basophils % % Neutrophils # (1.6-8.9) K/mcL Lymphocytes # (0.6-4.6) K/mcL Monocytes # (0.0-1.3) K/mcL Eosinophils # (0.0-0.6) K/mcL Basophils # (0.0-0.2) K/mcL Sodium 135 L (136-145) mEq/L Potassium 3.9 (3.5-5.1) mEq/L Chloride 99 (98-107) mEq/L Carbon Dioxide 27 (23-29) mEq/L BUN 6 (6-20) mg/dL Creatinine 1.12 (0.70-1.30) mg/dL Est GFR ( Amer) > 60 (> 60) Est GFR (Non-Af Amer) > 60 (> 60) BUN/Creatinine Ratio 5 L (6-26) Glucose 121 H (70-105) mg/dL Calculated Osmolality 279 L (280-300) Calcium 9.2 (8.6-10.3) mg/dL Urine Color (Yellow) Urine Clarity (Clear) Urine pH (5.0-8.0) pH Units Ur Specific [place] (1.010-1.025) Urine Protein (Neg-Trace) mg/dL Urine Glucose (UA) (Normal) mg/dL Urine Ketones (Negative) mg/dL Urine Blood (Negative) Urine Nitrite (Negative) Urine Bilirubin (Negative) Urine Urobilinogen (Normal) mg/dL Ur Leukocyte Esterase (Negative) Urine Microscopic RBC (0-3) per hpf Urine Microscopic WBC (0-3) per hpf Ur Squamous Epith Cells (None-Few) per lpf Urine Bacteria (None-Few) per hpf Hyaline Casts (None-Few) per lpf Salicylates < 2.5 L (15.0-30.0) mg/dL Urine Opiates Screen (Xnuegg=900) ng/mL Acetaminophen < 10 L (10-20) mcg/mL Ur Barbiturates Screen (Ivcerr=594) ng/mL Ur Phencyclidine Scrn (Cutoff=25) ng/mL Ur Amphetamines Screen (Mnalov=0077) ng/mL U Benzodiazepines Scrn (Qoftfo=044) ng/mL Urine Cocaine Screen (Cutoff= 300) ng/mL U Marijuana (THC) Screen (Cutoff = 50) ng/mL Ur Drug Screen Interp Ethyl Alcohol < 10 (Less than 10) mg/dL Attestation Statement - Attestation Attestation: I examined this patient and my medical decision-making was reviewed with the Resident Physician. I agree with the documented findings, disposition and tr eatment plan as described except to the extent set forth below. Patient presents to the ED with complaints of depression and anxiety and alcohol withdrawal. Patient has a history of alcoholism. His last drink was 2 days ago. He saw his PCP today at the recommendation of his therapist. They wanted him started on medications for depression and anxiety. His PCP sent him here. Patient states he was sent here to "being watched for a couple of days." Patient denies any seizure . Minor tremor and vomiting. He denies wanting to harm himself. He does report that he has a lot of life stressors including being foreclosed on. His girlfriend broke up with him. He had to close family members . He lost his [employer] driver's license and he has no job. On exam he is in no distress. Mild tremor. Anxious.. Awake alert and oriented. Plan. Medical clearance and evaluation by 1A. Evaluated by 1A who feels he is appropriate for admission for alcohol withdrawal. We will admit.
[2018-10-14 19:53] LABS: Bilirubin,Urine Small (Negative); Blood,Urine Negative (Negative); Clarity,Urine Clear (Clear); Color,Urine Dark Yellow (Yellow); Glucose,Urine (UA) Normal (Normal); Ketones,Urine 15 mg/dL (Negative); Leukocyte Esterase,Urine Negative (Negative); Nitrite,Urine Negative (Negative); Protein,Urine 30 mg/dL (Neg-Trace); Specific Gravity,Urine 1.011 (1.010-1.025); Urobilinogen,Urine Normal (Normal)
[2018-10-14 19:56] LABS: Bacteria,Urine None Seen per hpf (None-Few); Hyaline Casts,Urine None Seen per lpf (None-Few); RBC,Urine 0-3 per hpf (0-3); Squamous Epithelial Cell,Urine None Seen per lpf (None-Few); WBC,Urine 0-3 per hpf (0-3)
[2018-10-14 20:02] LABS: Basophils % 0.7 %; Eosinophils % 0.4 %; Hematocrit 50.5 % (37.5-50.1); Hemoglobin 17.2 g/dL (12.9-16.9); Immature Granulocytes % 0.4 % (0-4); Lymphocytes # 0.7 K/mcL (0.6-4.6); Lymphocytes % 12.7 %; Mean Corpuscular HGB Conc 34.1 g/dL (31.6-35.5); Mean Platelet Volume 9.1 fL (9.4-12.4); Monocytes # 0.6 K/mcL (0.0-1.3); Monocytes % 10.7 %; Neutrophils # 4.1 K/mcL (1.6-8.9); Platelet Count 201 K/mcL (140-400); Red Blood Count 5.37 M/mcL (4.19-5.50); Red Cell Distribution Width 12.4 % (11.5-14.5); Segmented Neutrophils % 75.1 %
[2018-10-14 20:12] LABS: Amphetamine Screen,Urine Negative ng/mL (Cutoff=1000); Barbiturate Screen,Urine Negative ng/mL (Cutoff=200); Benzodiazepines Screen,Urine Negative ng/mL (Cutoff=200); Cannabinoid Screen,Urine Negative ng/mL (Cutoff = 50); Cocaine Screen,Urine Negative ng/mL (Cutoff= 300); Opiate Screen,Urine Negative ng/mL (Cutoff=300); Phencyclidine Screen,Urine Negative ng/mL (Cutoff=25)
[2018-10-14 20:23] LABS: Acetaminophen < 10 mcg/mL (10-20); BUN/Creatinine Ratio 5 (6-26); Blood Urea Nitrogen 6 mg/dL (6-20); Calcium 9.2 mg/dL (8.6-10.3); Carbon Dioxide 27 mEq/L (23-29); Chloride 99 mEq/L (98-107); Ethanol < 10 mg/dL (Less than 10); Glucose 121 mg/dL (70-105); Osmolality,Calculated 279 (280-300); Potassium 3.9 mEq/L (3.5-5.1); Salicylate < 2.5 mg/dL (15.0-30.0); Sodium 135 mEq/L (136-145); eGFR For Non-African Americans > 60 (> 60)
[2018-10-14] MEDS ORDERED: Ondansetron ODT 4 MG TAB.RAPDIS SL ONE (21:40)
[2018-10-14] MEDS ORDERED: Acetaminophen 325 MG TABLET PO ONE (21:40)
[2018-10-14] MEDS ORDERED: *HR* LORazepam 2 MG/ML VIAL IVP ONE (23:24)
[2018-10-14] MEDS ORDERED: Ondansetron 4 MG/2 ML VIAL IVP ONE (23:24)
[2018-10-14] MEDS ORDERED: 0.9 % Sodium Chloride 1,000 ML IVC ONE (23:24)
[2018-10-14] MEDS ORDERED: traZODone 50 MG TABLET PO STA (23:24)
[2018-10-15] MEDS ORDERED: Naloxone 0.4 MG/ML INJ IVP PRN (07:28)
[2018-10-15] MEDS ORDERED: Ondansetron 4 MG/2 ML VIAL IVP PRN (07:28)
[2018-10-15] MEDS ORDERED: *HR* LORazepam 2 MG/ML VIAL IVP PRN (08:43)
--- NOTE | 2018-10-15 08:57 | Internal Med History&Physical ---
Date of Encounter: 10/15/18 Time of Encounter: 08:39 Internal Medicine - H&P: HPI Chief complaint: anxiety, alcohol withdrawal Admitted From: Home Plans for Post Hospital Care: Home History of present illness: Mr. Montes De Oca is a 48 year old male past medical history of alcohol abuse, hypertension, hyperlipidemia was sent from clinic due to symptoms of alcohol withdrawal. Patient does not drink on Wednesday. Drinks about 6-7 packs on a daily basis. He lost his job and his his family due to alcohol abuse. Has lots of anxiety and stress and says" he does not know what to do next". Denies suicidal or homicidal ideation. Denies any previous episodes of seizures or withdrawals however he has not had a previous attempts to stop alcohol. He is not on any antidepressants. Denies any chest pain, abdominal pain or difficulty breathing. Is feeling nauseous and tremulous. His food intake is not very good usually with his alcohol intake. Denies any problems passing urine or stool. Past Med Surg Social Fam HX - Past Medical History Medical history: GERD, hypertension Additional medical history: Gout, L wrist fracture Psychiatric history: no psych history - Past Surgical History Surgical History: non-contributory - Social History Smoking Status: Former smoker Smokeless Tobacco Status: No Alcohol use: heavy, recent Drug use: cocaine, marijuana - Family History Mother Living Status: Hx Family Cardiac Disorders: Yes ([place]) Hx Family Endocrine Disorder: Yes (DM) Father Living Status: Cause of : Brain aneurysm Hx Family Cardiac Disorders: Yes (HTN) Hx Family Endocrine Disorder: Yes (DM) Hx Family Neurologic Disorders: Yes (stroke) Brother Hx Family Cardiac Disorders: Yes (HTN) Internal Medicine - H&P: Meds Lisinopril [Zestril] 20 mg PO DAILY 12/15/17 [History] Trazodone HCl 100 mg PO HS 12/15/17 [History] Omeprazole [PriLOSEC] 40 mg PO BID #60 cap 12/17/17 [Rx] Sucralfate [Carafate] 1 gm PO QIDAC #120 tablet 12/17/17 [Rx] [place]-3 Acid Ethyl Esters [Lovaza] 4 gm PO DAILY #120 capsule 01/14/18 [Rx] Allergy/AdvReac Type Severity Reaction Status Date / Time No Known Allergies Allergy Verified 10/14/18 15:01 All Systems PM: A 10-system review of systems was performed and is negative for pertinent findings except as documented above in the HPI. - Constitutional Vitals: Temp Pulse Resp BP Pulse Ox 98.5 F 75 18 125/88 99 10/15/18 07:25 10/15/18 07:25 10/15/18 07:25 10/15/18 07:25 10/15/18 07:25 Exam: Constitutional: Vitals as noted. Conversant. Nauseous Eyes : Sclera white, conjunctiva clear, no lid lag, PEARLA. ENT : Grossly normal hearing. Oropharyngeal exam unremarkable. Moist mucus membranes. No JVD, no cervical lymphadenopathy. no thyromegaly or mass. Respiratory : Clear to auscultation bilaterally. No accessory muscle use, rales, rhonchi or wheezes Cardiovascular : RRR, +S1, +S2. no murmur, gallop, rubs. No chest wall tenderness GI/Abdominal : Soft, Non-tender, Non-distended, normal bowel sounds, soft, no peritoneal signs. no orgenomegaly or mass appreciated. no hernia. Musculoskeletal: no deformity noted. no edema or cyanosis. no calf tenderness. Neurological: AO X3, CN II-XII grossly intact, grossly normal motor and sensory exam. Skin: No skin rash, lesions or ulcers noted. Pych: depressive thoughts and affect Internal Med - H&P Results - Labs CBC & Chem 7: 10/14/18 19:39 10/14/18 19:39 Labs: Short CBC 10/14/18 Range/Units 19:39 WBC 5.5 (4.3-11.1) K/mcL Hgb 17.2 H (12.9-16.9) g/dL Hct 50.5 H (37.5-50.1) % Plt Count 201 (140-400) K/mcL Neutrophils # 4.1 (1.6-8.9) K/mcL BMP 10/14/18 19:39 Sodium 135 L Potassium 3.9 Chloride 99 Carbon Dioxide 27 BUN 6 Creatinine 1.12 Glucose 121 H Calcium 9.2 Urine 10/14/18 Range/Units 19:32 Urine Color Dark Yellow (Yellow) Urine Clarity Clear (Clear) Urine pH 7.0 (5.0-8.0) pH Units Ur Specific [place] 1.011 (1.010-1.025) Urine Protein 30 H (Neg-Trace) mg/dL Urine Glucose (UA) Normal (Normal) mg/dL - Assessment and Plan (1) Alcohol withdrawal syndrome Current Visit: Yes Status: Acute Assessment and plan: Patient quit alcohol on Wednesday. Denies any previous episodes of withdrawal We will keep patient on Librium taper along with when necessary Ativan. We will keep patient on multivitamin support and IV fluids for now. Qualifiers: Complication of substance-induced condition: uncomplicated Qualified C ode(s): F10.230 - Alcohol dependence with withdrawal, uncomplicated (2) Alcohol abuse Current Visit: Yes Status: Acute Assessment and plan: Encouraged to stay abstinent of alcohol We will consult social worker masters to provide additional resources (3) Depression Current Visit: Yes Status: Acute Assessment and plan: Not on any antidepressant previously We will consult psychiatry for medication recommendation Qualifiers: Depression Type: unspecified Qualified Code(s): F32.9 - Major depressive disorder, single episode, unspecified (4) Hyponatremia Current Visit: No Status: Acute Assessment and plan: Likely related to alcohol use We will keep patient on IV fluids We will improved with proper diet. (5) Hypertension Current Visit: No Status: Resolved Assessment and plan: We will resume patient's lisinopril Qualifiers: Hypertension type: essential hypertension Qualified Code(s): I10 - E ssential (primary) hypertension - Time Spent With Patient Total time spent is greater than 50% in coordination of care (as documented) at patient's floor/unit and/or counseling patient:
[2018-10-15 09:13] LABS: Prothrombin Time 11.7 Seconds (9.4-12.1)
[2018-10-15] MEDS: Ringers Solution, Lactated 1,000 ML IVC SCH ×2 (09:16→19:56)
[2018-10-15] MEDS: Thiamine (B-1) 100 MG TABLET PO SCH (09:17)
[2018-10-15] MEDS: Vitamin B Complex/Vit C/Vit E 1 EACH TABLET PO SCH (09:17)
[2018-10-15] MEDS: Lisinopril 20 MG TABLET PO SCH (09:17)
[2018-10-15] MEDS: Folic Acid 1 MG TABLET PO SCH (09:17)
[2018-10-15 09:28] LABS: Alanine Aminotransferase 18 Units/L (7-52); Albumin 3.3 g/dL (3.5-5.7); Albumin/Globulin Ratio 1.1 (1.1-2.2); Alkaline Phosphatase 67 Units/L (34-104); Aspartate Amino Transferase 33 Units/L (13-39); BUN/Creatinine Ratio 5 (6-26); Bilirubin,Total 1.3 mg/dL (0.3-1.0); Blood Urea Nitrogen 5 mg/dL (6-20); Calcium 8.4 mg/dL (8.6-10.3); Carbon Dioxide 24 mEq/L (23-29); Chloride 105 mEq/L (98-107); Globulin 2.9 g/dL (2.4-3.5); Glucose 98 mg/dL (70-105); Osmolality,Calculated 277 (280-300); Potassium 4.1 mEq/L (3.5-5.1); Sodium 135 mEq/L (136-145); Total Protein 6.2 g/dL (6.4-8.9); eGFR For Non-African Americans > 60 (> 60)
[2018-10-15] MEDS: *HR* Heparin 5,000 UNIT/ML VIAL SQ SCH ×2 (14:38→21:22)
--- NOTE | 2018-10-15 16:51 | Consult Note ---
Date of Encounter: 10/15/18 Time of Encounter: 14:45 Assessment & Recommendation (1) Major depression, recurrent Current visit: Yes Status: Acute Assessment & Recommendation: 1. Start Lexapro 10mg/d for mood/anxiety. Dose may need to be titrated to 20mg/d after 2-4 wks. 2. Monitor for side effects. Qualifiers: Active/Remission status: currently active Major depression episode sev erity: moderate Qualified Code(s): F33.1 - Major depressive disorder, recurrent, moderate (2) Alcohol abuse Current visit: Yes Status: Acute Assessment & Recommendation: Recommend rehab either IP or OP. This may be either straight JAM[facility] treatment or ideally Dual diagnosis program. Patient desires referrals for job training, computer literacy training and transportation. History of Present Illness Requesting Physician: Abelino Hedrick MD History of present illness: Mr. Montes De Oca is a 48 year old male admitted from ER to due to alcohol withdrawal symptoms. Patient gave a history of drinking at least a 6 pack nights for many years. Patient stopped drinking about 2 days prior to coming to hospital. Patient began having N/V with tremors. Nutrition was poor due to alcohol intake. On interview with this provider patient admits to his chronic use of alcohol and attempting to stop for the first time a couple of days ago..Patient states he has been down due to loss of his GF, his job, getting a DUI and maybe another DUI while still completing his court required activities for the first DUI. Patient endorses depression and rates his mood a 9 on a score or 1-10 with 10 being worst. He rates his anxiety between and 8 and 9. Patient states his appetite is down with a 20 b. weight loss over the last 2 years. He c/o of reduced energy, low sex drive, feelings of guilt and anhedonia. Patient has seen a therapist at [facility] and c/o he only gets seen every other week. Patient places himself as a victim of his circumstances and sees obstacles ahead no matter what. Patient denies SI/HI, denies A/V hallucinations, denies other psychotic symptoms. Patient denies any use of antidepressants, but chart review indicates he has been prescribed Paxil. He takes Trazodone 100mg/hs for sleep. CC: Abelino Hedrick MD Past Med Surg Social Fam HX - Past Medical History Medical history: GERD, hypertension - Past Psychiatric History Psychiatric history: Reports: anxiety, depression Past psychiatric history details: OP counseling Family psychiatric history: Unknown Family History of Suicide: Unknown - Past Surgical History Surgical History: non-contributory - Social History Smoking Status: Former smoker Smokeless Tobacco Status: No Alcohol use: heavy, recent Drug use: cocaine, marijuana - Family History Mother Living Status: Hx Family Cardiac Disorders: Yes (OK) Hx Family Endocrine Disorder: Yes (DM) Father Living Status: Cause of : Brain aneurysm Hx Family Cardiac Disorders: Yes (HTN) Hx Family Endocrine Disorder: Yes (DM) Hx Family Neurologic Disorders: Yes (stroke) Brother Hx Family Cardiac Disorders: Yes (HTN) Medications & Allergies Lisinopril [Zestril] 20 mg PO DAILY 12/15/17 [History] Indomethacin 50 mg PO TID PRN 10/15/18 [History] Paroxetine [Paxil] 20 mg PO QAM 10/15/18 [History] Trazodone HCl 100 mg PO HS PRN 10/15/18 [History] Allergy/AdvReac Type Severity Reaction Status Date / Time No Known Allergies Allergy Verified 10/15/18 16:10 Review of Systems Constitutional: Reports: weight change Eyes: Denies: eye pain, vision change Ears, Nose, Throat: Denies: ear pain, throat pain, dental pain, hearing loss, congestion Cardiovascular: Denies: chest pain, palpitations, dyspnea on exertion Respiratory: Denies: cough, dyspnea, wheezes Gastrointestinal: Reports: nausea, vomiting. Denies: abdominal pain, diarrhea, constipation Genitourinary male: Denies: urgency, dysuria, frequency, genital lesions Musculoskeletal: Denies: joint swelling, joint pain Integumentary: Denies: rash, lesions, pruritus Neurological: Denies: headache, weakness, numbness, memory loss Psychiatric: Reports: depression, anxiety, anhedonia, change in libido, hopelessness Endocrine: Denies: fatigue, heat or cold intolerance Hematologic/Lymphatic: Denies: easy bruising, lymphadenopathy Allergic/Immunologic: Denies: urticaria, itchy eyes Psychiatry Exam - Constitutional Vitals: Temp Pulse Resp BP Pulse Ox 98.6 F 82 15 116/77 96 10/15/18 15:57 10/15/18 15:57 10/15/18 15:57 10/15/18 15:57 10/15/18 15:57 General appearance: age & developmentally appropriate, well-groomed, well- nourished - Musculoskeletal Gait: normal Station: relaxed Strength & Tone: normal for patient - Psychiatric Patient Orientation: Yes Person, Yes Time, Yes Place Level of alertness: Alert Behavior: calm, cooperative, anxious, tearful Psychomotor activity: Normal Eye Contact: Maintains Eye Contact Mood Description: Angry, Depressed, Anxious Patient description of mood: Very depressed Affect description: congruent with mood, full range Speech Volume: Normal Speech pattern: normal rate, normal rhythm, normal tone, fluent, spontaneous Language & Vocabulary: consistent with education Thought Process: Linear, Goal Oriented Thought Content: No Suicidal ideation, No Homicidal ideation, No Overt delusions Perceptual Disturbances: No Auditory hallucinations, No Visual hallucinations Attention Span Ability: Capable of Focused Attention Memory Description: Grossly Intact Patient Reliability: Reliable Historian Fund of knowledge: Yes abstraction ability, Yes aware of current events Intelligence Estimate: Average Judgment: Fair Insight: Partial Results - Drug Levels and Toxicology Drug Levels and Toxicology: Drug Levels and Toxicity 10/14/18 10/14/18 19:05 19:39 Urine Opiates Screen Negative Acetaminophen < 10 L Ur Barbiturates Screen Negative Ur Phencyclidine Scrn Negative Ur Amphetamines Screen Negative U Benzodiazepines Scrn Negative Urine Cocaine Screen Negative U Marijuana (THC) Screen Negative Ethyl Alcohol < 10 - Labs Labs: Laboratory Last Values WBC 5.5 K/mcL (4.3-11.1) 10/14/18 19:39 RBC 5.37 M/mcL (4.19-5.50) 10/14/18 19:39 Hgb 17.2 g/dL (12.9-16.9) H 10/14/18 19:39 Hct 50.5 % (37.5-50.1) H 10/14/18 19:39 MCV 94.0 fL (83.0-100.0) 10/14/18 19:39 MCH 32.0 pg (28.0-33.3) 10/14/18 19:39 MCHC 34.1 g/dL (31.6-35.5) 10/14/18 19:39 RDW 12.4 % (11.5-14.5) 10/14/18 19:39 Plt Count 201 K/mcL (140-400) 10/14/18 19:39 MPV 9.1 fL (9.4-12.4) L 10/14/18 19:39 Immature Gran % 0.4 % (0-4) 10/14/18 19:39 Seg Neutrophils % 75.1 % 10/14/18 19:39 Lymphocytes % 12.7 % 10/14/18 19:39 Monocytes % 10.7 % 10/14/18 19:39 Eosinophils % 0.4 % 10/14/18 19:39 Basophils % 0.7 % 10/14/18 19:39 Neutrophils # 4.1 K/mcL (1.6-8.9) 10/14/18 19:39 Lymphocytes # 0.7 K/mcL (0.6-4.6) 10/14/18 19:39 Monocytes # 0.6 K/mcL (0.0-1.3) 10/14/18 19:39 Eosinophils # 0.0 K/mcL (0.0-0.6) 10/14/18 19:39 Basophils # 0.0 K/mcL (0.0-0.2) 10/14/18 19:39 PT 11.7 Seconds (9.4-12.1) 10/15/18 08:18 INR 1.0 10/15/18 08:18 Sodium 135 mEq/L (136-145) L 10/15/18 08:18 Potassium 4.1 mEq/L (3.5-5.1) 10/15/18 08:18 Chloride 105 mEq/L (98-107) 10/15/18 08:18 Carbon Dioxide 24 mEq/L (23-29) 10/15/18 08:18 BUN 5 mg/dL (6-20) L 10/15/18 08:18 Creatinine 1.06 mg/dL (0.70-1.30) 10/15/18 08:18 Est GFR ( Amer) > 60 (> 60) 10/15/18 08:18 Est GFR (Non-Af Amer) > 60 (> 60) 10/15/18 08:18 BUN/Creatinine Ratio 5 (6-26) L 10/15/18 08:18 Glucose 98 mg/dL (70-105) 10/15/18 08:18 Calculated Osmolality 277 (280-300) L 10/15/18 08:18 Calcium 8.4 mg/dL (8.6-10.3) L 10/15/18 08:18 Total Bilirubin 1.3 mg/dL (0.3-1.0) H 10/15/18 08:18 AST 33 Units/L (13-39) 10/15/18 08:18 ALT 18 Units/L (7-52) 10/15/18 08:18 Alkaline Phosphatase 67 Units/L (34-104) 10/15/18 08:18 Serum Total Protein 6.2 g/dL (6.4-8.9) L 10/15/18 08:18 Albumin 3.3 g/dL (3.5-5.7) L 10/15/18 08:18 Globulin 2.9 g/dL (2.4-3.5) 10/15/18 08:18 Albumin/Globulin Ratio 1.1 (1.1-2.2) 10/15/18 08:18 Urine Color Dark Yellow (Yellow) 10/14/18 19:32 Urine Clarity Clear (Clear) 10/14/18 19:32 Urine pH 7.0 pH Units (5.0-8.0) 10/14/18 19:32 Ur Specific [place] 1.011 (1.010-1.025) 10/14/18 19:32 Urine Protein 30 mg/dL (Neg-Trace) H 10/14/18 19:32 Urine Glucose (UA) Normal mg/dL (Normal) 10/14/18 19:32 Urine Ketones 15 mg/dL (Negative) H 10/14/18 19:32 Urine Blood Negative (Negative) 10/14/18 19:32 Urine Nitrite Negative (Negative) 10/14/18 19:32 Urine Bilirubin Small (Negative) H 10/14/18 19:32 Urine Urobilinogen Normal mg/dL (Normal) 10/14/18 19:32 Ur Leukocyte Esterase Negative (Negative) 10/14/18 19:32 Urine Microscopic RBC 0-3 per hpf (0-3) 10/14/18 19:32 Urine Microscopic WBC 0-3 per hpf (0-3) 10/14/18 19:32 Ur Squamous Epith Cells None Seen per lpf (None-Few) 10/14/18 19:32 Urine Bacteria None Seen per hpf (None-Few) 10/14/18 19:32 Hyaline Casts None Seen per lpf (None-Few) 10/14/18 19:32 Salicylates < 2.5 mg/dL (15.0-30.0) L 10/14/18 19:39 Urine Opiates Screen Negative ng/mL (Hijzqi=294) 10/14/18 19:05 Acetaminophen < 10 mcg/mL (10-20) L 10/14/18 19:39 Ur Barbiturates Screen Negative ng/mL (Acuaps=491) 10/14/18 19:05 Ur Phencyclidine Scrn Negative ng/mL (Cutoff=25) 10/14/18 19:05 Ur Amphetamines Screen Negative ng/mL (Izgulf=5371) 10/14/18 19:05 U Benzodiazepines Scrn Negative ng/mL (Ucwofa=243) 10/14/18 19:05 Urine Cocaine Screen Negative ng/mL (Cutoff= 300) 10/14/18 19:05 U Marijuana (THC) Screen Negative ng/mL (Cutoff = 50) 10/14/18 19:05 Ur Drug Screen Interp See Below 10/14/18 19:05 Ethyl Alcohol < 10 mg/dL (Less than 10) 10/14/18 19:39 Consult Discharge Plan - Plan Referrals: NONE,PCP [Primary Care Provider] -
[2018-10-15] MEDS: traZODone 50 MG TABLET PO PRN (21:21)
[2018-10-16] MEDS: *HR* Heparin 5,000 UNIT/ML VIAL SQ SCH ×3 (04:27→19:29)
[2018-10-16] MEDS: Vitamin B Complex/Vit C/Vit E 1 EACH TABLET PO SCH (08:49)
[2018-10-16] MEDS: Folic Acid 1 MG TABLET PO SCH (08:49)
[2018-10-16] MEDS: Lisinopril 20 MG TABLET PO SCH (08:49)
[2018-10-16] MEDS: Thiamine (B-1) 100 MG TABLET PO SCH (08:49)
--- NOTE | 2018-10-16 12:48 | Internal Med Progress Note ---
Hospitalist Progress Note - Encounter Date of Encounter: 10/16/18 Time of Encounter: 07:38 - Subjective Interval History: Patient seen and examined this morning at bedside. No acute 18 has. Feeling slightly better. Denies any nausea or vomiting. Had some chills with sweating. - Exam Vitals: Temp Pulse Resp BP Pulse Ox 98.2 F 78 14 106/74 97 10/16/18 12:08 10/16/18 12:08 10/16/18 12:08 10/16/18 12:08 10/16/18 12:08 Exam: Constitutional: Vitals as noted. Conversant. Respiratory : CTAB, No accessory muscle use, rales, rhonchi or wheezes Cardiovascular : RRR, +S1, +S2. no murmur, gallop, rubs. GI/Abdominal : Soft, Non-tender, Non-distended, normal bowel sounds, soft, no peritoneal signs. Musculoskeletal: no deformity noted. no edema or cyanosis. no calf tenderness. Neurological: AO X3, CN II-XII grossly intact, grossly normal motor and sensory exam. no tremors noted Skin: No skin rash, lesions or ulcers noted. - Assessment and Plan (1) Alcohol withdrawal syndrome Current Visit: Yes Status: Acute (2) Alcohol abuse Current Visit: Yes Status: Acute (3) Depression Current Visit: Yes Status: Acute (4) Hyponatremia Current Visit: No Status: Acute - Summary of Assessment and Plan Summary of Assessment and Plan: Alcohol withdrawal syndrome - c/w CIWQ protocol with librium, nutritional support. stop IVF. - Psych recommended rehab IP or OP. Will consult social media community manager Depression - started on lexapro Hypertension - c/w lisinopril DVT ppx - heparin sc - Time Spent with Patient Total time spent is greater than 50% in coordination of care (as documented) at patient's floor/unit and/or counseling patient: Internal Medicine: Result - Labs CBC & Chem 7: 10/14/18 19:39 10/15/18 08:18 - ABG Interpretation ABG results: PT/INR, D-dimer PT 11.7 Seconds (9.4-12.1) 10/15/18 08:18 Consult Discharge Plan - Plan Referrals: NONE,PCP [Primary Care Provider] - (1) Alcohol withdrawal syndrome Qualifiers: Complication of substance-induced condition: uncomplicated Qualified Code(s): F10.230 - Alcohol dependence with withdrawal, uncomplicated (3) Depression Qualifiers: Depression Type: unspecified Qualified Code(s): F32.9 - Major depressive disorder, single episode, unspecified
[2018-10-16] MEDS: Indomethacin 25 MG CAPSULE PO PRN (16:07)
[2018-10-16] MEDS: traZODone 50 MG TABLET PO PRN (21:14)
[2018-10-17] MEDS: *HR* Heparin 5,000 UNIT/ML VIAL SQ SCH (06:12)
--- NOTE | 2018-10-17 08:07 | Internal Med Progress Note ---
Hospitalist Progress Note - Encounter Date of Encounter: 10/17/18 Time of Encounter: 08:07 - Exam Vitals: Temp Pulse Resp BP Pulse Ox 98.7 F 90 18 105/66 99 10/16/18 23:07 10/17/18 07:53 10/17/18 07:53 10/17/18 07:53 10/17/18 07:53 - Assessment and Plan (1) Alcohol withdrawal syndrome Current Visit: Yes Status: Acute (2) Alcohol abuse Current Visit: Yes Status: Acute (3) Depression Current Visit: Yes Status: Acute (4) Hyponatremia Current Visit: No Status: Acute - Time Spent with Patient Total time spent is greater than 50% in coordination of care (as documented) at patient's floor/unit and/or counseling patient: Internal Medicine: Result - Labs CBC & Chem 7: 10/14/18 19:39 10/15/18 08:18 - ABG Interpretation ABG results: PT/INR, D-dimer PT 11.7 Seconds (9.4-12.1) 10/15/18 08:18 Consult Discharge Plan - Plan Referrals: Robbin Cavanaugh DO [Resident] - (1) Alcohol withdrawal syndrome Qualifiers: Complication of substance-induced condition: uncomplicated Qualified Code(s): F10.230 - Alcohol dependence with withdrawal, uncomplicated (3) Depression Qualifiers: Depression Type: unspecified Qualified Code(s): F32.9 - Major depressive disorder, single episode, unspecified
[2018-10-17] MEDS ORDERED: predniSONE 20 MG TABLET PO SCH (09:00)
[2018-10-17] MEDS: Thiamine (B-1) 100 MG TABLET PO SCH (09:26)
[2018-10-17] MEDS: Vitamin B Complex/Vit C/Vit E 1 EACH TABLET PO SCH (09:26)
[2018-10-17] MEDS: Folic Acid 1 MG TABLET PO SCH (09:26)
[2018-10-17] MEDS: Indomethacin 25 MG CAPSULE PO PRN (09:26)
[2018-10-17 11:35] VITALS: BP 119/80
--- NOTE | 2018-10-17 12:48 | Discharge Summary ---
- NOTES TO OUTPATIENT PROVIDER Notes to Outpatient Provider: Will need follow up for management of gout Date of Encounter: 10/17/18 Time of Encounter: 12:44 - Discharge Diagnosis (1) Alcohol withdrawal syndrome Priority: Primary Status: Acute Qualifiers: Complication of substance-induced condition: uncomplicated Qualified Code(s): F10.230 - Alcohol dependence with withdrawal, uncomplicated (2) Alcohol abuse Priority: Primary Status: Acute (3) Depression Priority: Primary Status: Acute Qualifiers: Depression Type: unspecified Qualified Code(s): F32.9 - Major depressive disorder, single episode, unspecified (4) Hyponatremia Priority: Secondary Status: Acute (5) Gout Priority: Secondary Status: Acute Qualifiers: Gout site: ankle Chronicity: chronic Laterality: left Presence of tophus: without tophus Qualified Code(s): 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 Montes De Oca is a 48 year old male with Pmhx of alcohol abuse, HTN, HLD, gout, came in for complains of anxiety and alcohol withdrawal. He was started on CIWA protocol with librium. He was also seen by pyschiatry for depression who recommended starting lexapro. Patient was recommended rehab IP or OP for alcohol abuse. food services coordinator were also consulted. Patient refused inpatient rehab. He was not happy with the options offered for out patient including support service as it was monetary in nature. He became upset and wanted to leave soon as he needs to arrange for his bills for home. He is otherwise stable and not in withdrawal. He did get severe pain in Lt ankle during his stay and was started on prednisone for 5 days for gout flare. He will need outpatient follow up for gout. - Time Spent with Patient Total time spent providing and/or coordinating discharge services: Time spent: Greater than 30 minutes (38) - Discharge Medications Prescriptions: New Escitalopram [Lexapro] 10 mg PO HS 30 Days #30 tablet Omeprazole [PriLOSEC] 40 mg PO DAILY@0630 15 Days #15 capsule. predniSONE [PredniSONE] 40 mg PO DAILY 5 Days #10 tablet Continue Lisinopril [Zestril] 20 mg PO DAILY Indomethacin 50 mg PO TID PRN PRN Reason: Pain Trazodone HCl 100 mg PO HS PRN PRN Reason: Insomnia Discontinued Paroxetine [Paxil] 20 mg PO QAM Home Medications: Lisinopril [Zestril] 20 mg PO DAILY 12/15/17 [History] Indomethacin 50 mg PO TID PRN 10/15/18 [History] Trazodone HCl 100 mg PO HS PRN 10/15/18 [History] Escitalopram [Lexapro] 10 mg PO HS 30 Days #30 tablet 10/17/18 [Rx] Omeprazole [PriLOSEC] 40 mg PO DAILY@0630 15 Days #15 capsule. 10/17/18 [Rx] predniSONE [PredniSONE] 40 mg PO DAILY 5 Days #10 tablet 10/17/18 [Rx] Allergies/Adverse Reactions: Allergy/AdvReac Type Severity Reaction Status Date / Time No Known Allergies Allergy Verified 10/15/18 16:10 Date of admission: 10/14/18 23:49 Primary care physician: PCP NONE Consults: 10/15/18 08:42 Consult to Psychiatry [CONS] Routine Consulting Provider: Psychiatry Stevenson Reason consult: Medication recommendation Other reason and/or additional details: depression, anxiety 10/16/18 12:50 Consult to Branch Service Representative [CONS] Routine Reason for SW Consult: alcohol rehab Discharging clinician: Blane Bell - Constitutional Vitals: Temp Pulse Resp BP Pulse Ox 98.3 F 78 17 119/80 97 10/17/18 11:35 10/17/18 11:35 10/17/18 11:35 10/17/18 11:35 10/17/18 11:35 Exam: Constitutional: Vitals as noted. Conversant. Respiratory : CTAB, No accessory muscle use, rales, rhonchi or wheezes Cardiovascular : RRR, +S1, +S2. no murmur, gallop, rubs. GI/Abdominal : Soft, Non-tender, Non-distended, normal bowel sounds, soft, no peritoneal signs. Musculoskeletal: no deformity noted. no edema or cyanosis. no calf tenderness. Neurological: AO X3, CN II-XII grossly intact, grossly normal motor and sensory exam. no tremors noted Skin: No skin rash, lesions or ulcers noted. - Patient Status Disposition: Home, Self-Care Condition: Fair - Discharge Instructions Follow Up With: Robbin Cavanaugh DO [Resident] - 10/25/18 4:00 pm
== END 2018-10-17 13:16 | disposition home or self-care (01) ==
LOC: 3BNU 14:20 → EMEROOARM 14:20 → SUATTDRO 23:49 → 3BNU 10-15 00:15
PROVIDERS: ADMIT Pediatrics; ATTEND Internal Medicine

== ENCOUNTER 2018-11-24 11:26 | Observation (INO) ==
[2018-11-24] MEDS ORDERED: *HR* Morphine 2 MG/ML SYRINGE IVP ONE (11:52)
[2018-11-24] MEDS ORDERED: Ondansetron 4 MG/2 ML VIAL IVP ONE (11:52)
[2018-11-24 12:04] LABS: Hematocrit 56.2 % (37.5-50.1); Hemoglobin 20.6 g/dL (12.9-16.9); Mean Corpuscular HGB Conc 36.7 g/dL (31.6-35.5); Mean Corpuscular Hemoglobin 32.9 pg (28.0-33.3); Mean Corpuscular Volume 89.8 fL (83.0-100.0); Mean Platelet Volume 9.4 fL (9.4-12.4); Red Blood Count 6.26 M/mcL (4.19-5.50); Red Cell Distribution Width 12.7 % (11.5-14.5)
--- NOTE | 2018-11-24 12:04 | Emergency Department Note ---
Disposition Clinical Impression: Alcoholism, SOB (shortness of breath), Tachycardia Chest pain Qualifiers: Chest pain type: unspecified Qualified Code(s): R07.9 - Chest pain, unspecified Disposition: Admitted As Inpatient Condition: Fair Referrals: Robbin Cavanaugh DO [Primary Care Provider] - Forms: ED Satisfaction Letter Time of Disposition: 15:24 General Adult HPI - General Chief complaint: ED Chest Pain Stated complaint: JUAN PABLO/HTN Time Seen by Provider: 11/24/18 11:37 Source: patient Limitations: no limitations Nursing Notes Reviewed: Yes Vital Signs Reviewed: Yes - History of Present Illness HPI Narrative: I did see this patient immediately upon arrival back to his room as I was called emergently into see the patient. The patient did drive here and was walked back to the room and main complaint is shortness of breath as well as a ache sensation in the epigastric region which has been present for the last week which he initially said it was intermittent however the ache sensation has been constant. He does not know about diaphoresis. No pain or swelling of the lower extremities. No cardiac history. Social history: No smoking, drinks 12 beers per day, no drugs. Pain Scale: 5 - Related Data Home Medications Medication Instructions Recorded Confirmed Lisinopril [Zestril] 20 mg PO DAILY 12/15/17 10/15/18 Indomethacin 50 mg PO TID PRN 10/15/18 10/15/18 Trazodone HCl 100 mg PO HS PRN 10/15/18 10/15/18 Allergies Allergy/AdvReac Type Severity Reaction Status Date / Time No Known Allergies Allergy Verified 10/15/18 16:10 Review of Systems: Constitutional: No fever Vision: + blurred vision ENT: + rhinorrhea Respiratory: No cough Allergic: No allergies : No blood in urine GI: No blood in stool Hematologic: No bruising Dermatologic: No skin rash Musculoskeletal: No pain in the extremities Neuro: No numbness of the extremities Past Medical History - Past Medical History Medical history: Reports: GERD, hyperlipidemia, hypertension Surgical history: Reports: non-contributory Psychiatric history: Reports: anxiety, depression - Social History Smoking Status: Former smoker Smokeless Tobacco Status: No Alcohol use: Reports: heavy, recent Drug use: Reports: cocaine, marijuana Physical Exam CONSTITUTIONAL: Alert and oriented X3, well-nourished, slightly flushed, anxious appearing, no diaphoresis HEAD: Normocephalic; atraumatic. EYES: PERRL, no scleral icterus. NOSE: The nose is normal in appearance without rhinorrhea RESP: Normal chest excursion with respiration; breath sounds clear and equal bilaterally; no wheezes, rhonchi, or rales CARD: Regular rhythm, without murmurs, rub or gallop ABD: Non-distended; normal appearance, minimal discomfort palpation epigastric region but soft without rigidity, rebound, guarding. Elsewhere the abdomen is non-tender, soft,without rigidity, rebound or guarding SKIN: Normal for age and race; warm and dry; no apparent lesions EXTREMITIES: Pulses are 2 plus and equal times 4 extremities, no peripheral edema or calf muscle pain. - General Limitations: no limitations General appearance: alert Course Vital Signs Temperature 98.1 F 11/24/18 11:33 Pulse Rate 130 11/24/18 11:33 Respiratory Rate 16 11/24/18 11:33 Blood Pressure 115/73 11/24/18 11:33 O2 Sat by Pulse Oximetry 99 11/24/18 11:33 Temperature 98.1 F 11/24/18 11:40 Pulse Rate 93 11/24/18 14:39 Respiratory Rate 20 11/24/18 14:39 Blood Pressure 101/69 11/24/18 14:39 O2 Sat by Pulse Oximetry 100 11/24/18 14:39 Oxygen Delivery Oxygen Delivery Room Air Medical Decision Making - MDM Narrative Medical decision making narrative: I did review the EKG without acute ischemic change or evidence of arrhythmia and a did compared to previous EKG. There is no evidence of STEMI. Based on the patient's alcohol use and epigastric pain and prolonged duration of symptoms pancreatitis is a strong possibility at this point. He does have orders also for troponin, chest x-ray. Aortic dissection seems very unlikely. He does receive 2 L IV fluids, IV morphine, IV Zofran and will reassess and watched on the monitor and pulse oximeter. Patient will likely be admitted. 1205 I did go back and talked the patient again and at this point states that he does have hopelessness because the fact that his has left him and his mother recently and he is alcoholic and will likely soon lose his home and he does not have any family and has no children and he states he is suicidal with the plan to overdose. This was on the initial discussion with him however when I asked him again he said he thinks he is suicidal so was not quite as definitive but either way he certainly needs evaluated by mental health and I did add on toxicology testing I will also spoke with the hospitalist who accepts the patient for admission medically and the concern is that the patient does have significant hemoconcentration, low sodium and shortness of breath and epigastric pain with the tachycardia of 127 he arrived and will have further evaluation of this here in the hospital. I did confirm that he does not have a pleuritic aspect of his pain.No pain or swelling of the lower extremities, casts or splints of the lower extremities, prolonged immobilization or lower extremity injury. No history of cancer, hemoptysis, hormone therapy, blood clotting problems or recent surgery. I do not suspect pulmonary embolism. I do not suspect aortic dissection. He does appear improved with the IV fluids. 1523 - Medical Records Medical records reviewed: Yes I reviewed the patient's medical records. - Lab Data Lab results reviewed: Yes I reviewed the patient's lab results. Result diagrams: 11/24/18 11:39 11/24/18 12:34 Lab Results 11/24/18 11/24/18 11/24/18 Range/Units 11:39 11:48 12:26 WBC 10.0 (4.3-11.1) K/mcL RBC 6.26 H (4.19-5.50) M/mcL Hgb 20.6 H (12.9-16.9) g/dL Hct 56.2 H (37.5-50.1) % MCV 89.8 (83.0-100.0) fL MCH 32.9 (28.0-33.3) pg MCHC 36.7 H (31.6-35.5) g/dL RDW 12.7 (11.5-14.5) % Plt Count 203 (140-400) K/mcL MPV 9.4 (9.4-12.4) fL Immature Plt Fraction 6.0 (1.1-6.1) % Sodium Cancelled Potassium Cancelled Chloride Cancelled Carbon Dioxide Cancelled BUN Cancelled Creatinine Cancelled Est GFR ( Amer) Cancelled Est GFR (Non-Af Amer) Cancelled BUN/Creatinine Ratio Cancelled Glucose Cancelled Calculated Osmolality Cancelled Calcium Cancelled Total Bilirubin Cancelled Direct Bilirubin Cancelled Indirect Bilirubin Cancelled AST Cancelled ALT Cancelled Alkaline Phosphatase Cancelled Troponin I < 0.03 (< 0.04) ng/mL Serum Total Protein Cancelled Albumin Cancelled Globulin Cancelled Albumin/Globulin Ratio Cancelled Lipase 56 (11-82) Units/L Specimen Rejected Hemolyzed 11/24/18 Range/Units 12:34 WBC (4.3-11.1) K/mcL RBC (4.19-5.50) M/mcL Hgb (12.9-16.9) g/dL Hct (37.5-50.1) % MCV (83.0-100.0) fL MCH (28.0-33.3) pg MCHC (31.6-35.5) g/dL RDW (11.5-14.5) % Plt Count (140-400) K/mcL MPV (9.4-12.4) fL Immature Plt Fraction (1.1-6.1) % Sodium 127 L Potassium 3.7 Chloride 92 L Carbon Dioxide 20 L BUN 9 Creatinine 1.29 Est GFR ( Amer) > 60 Est GFR (Non-Af Amer) 59 L BUN/Creatinine Ratio 7 Glucose 82 Calculated Osmolality 262 L Calcium 9.7 Total Bilirubin 2.3 H Direct Bilirubin 0.5 H Indirect Bilirubin 1.8 H AST 31 ALT 17 Alkaline Phosphatase 81 Troponin I (< 0.04) ng/mL Serum Total Protein 7.8 Albumin 4.2 Globulin 3.6 H Albumin/Globulin Ratio 1.2 Lipase (11-82) Units/L Specimen Rejected - Radiology Data Radiology results reviewed: Yes I reviewed the patient's radiology results. Critical Care Time Critical Care Time: No
[2018-11-24] MEDS ORDERED: 0.9 % Sodium Chloride 1,000 ML IVC SCH (12:15)
[2018-11-24 12:25] LABS: Lipase 56 Units/L (11-82); Troponin I < 0.03 ng/mL (< 0.04)
[2018-11-24 13:06] LABS: Alanine Aminotransferase 17 Units/L (7-52); Albumin 4.2 g/dL (3.5-5.7); Albumin/Globulin Ratio 1.2 (1.1-2.2); Alkaline Phosphatase 81 Units/L (34-104); Aspartate Amino Transferase 31 Units/L (13-39); BUN/Creatinine Ratio 7 (6-26); Bilirubin,Direct 0.5 mg/dL (0.0-0.2); Bilirubin,Indirect 1.8 mg/dL (0.0-1.2); Bilirubin,Total 2.3 mg/dL (0.3-1.0); Blood Urea Nitrogen 9 mg/dL (6-20); Calcium 9.7 mg/dL (8.6-10.3); Carbon Dioxide 20 mEq/L (23-29); Chloride 92 mEq/L (98-107); Globulin 3.6 g/dL (2.4-3.5); Glucose 82 mg/dL (70-105); Osmolality,Calculated 262 (280-300); Potassium 3.7 mEq/L (3.5-5.1); Sodium 127 mEq/L (136-145); Total Protein 7.8 g/dL (6.4-8.9); eGFR For Non-African Americans 59 (> 60)
[2018-11-24] MEDS ORDERED: Naloxone 0.4 MG/ML INJ IVP PRN (15:28)
[2018-11-24] MEDS ORDERED: Ondansetron 4 MG/2 ML VIAL IVP PRN (15:28)
[2018-11-24] MEDS ORDERED: traMADol 50 MG TABLET PO PRN (15:28)
--- NOTE | 2018-11-24 16:07 | Internal Med History&Physical ---
Date of Encounter: 11/24/18 Time of Encounter: 16:00 Internal Medicine - H&P: HPI Chief complaint: light headedness, dizziness. abdominal pain Admitted From: Home Plans for Post Hospital Care: Home History of present illness: Mr. Montes De Oca is a 48 year old male PMH of HTN, Depression, Alcohol abuse, and HLD. Patient presented to the ED due to light headedness, dizziness and epigastric abdominal pain. Patient reports for the past week he has been feeling sick, which he describes as every morning waking up with light headedness, dizziness, nauseate and having 5/10 non-radiating, burning, epigastric abdominal pain. Reports for the past 3 days he has not been able to tolerate anything oral but alcohol due to epigastric pain. Stated that today morning he got up and was feeling diaphoretic, nauseate and light headed, every time he had this symptoms during the past week, he would drink alcohol and his discomfort improved. But today he decided to call his PCP and was advised to come to the ED. He also reports drinking 6-12 beers a day and feeling hopeless, helpless and worthless. Reports having suicidal thoughts on and off. Reports he lost everything due to alcohol about 2 year ago. Denies fever, chills, shortness of breath, or chest pain. Past Med Surg Social Fam HX - Past Medical History Medical history: GERD, hyperlipidemia, hypertension Additional medical history: Gout, L wrist fracture Psychiatric history: anxiety, depression - Past Surgical History Surgical History: non-contributory - Social History Smoking Status: Former smoker Smokeless Tobacco Status: No Alcohol use: heavy, recent Drug use: cocaine, marijuana - Family History Mother Living Status: Hx Family Cardiac Disorders: Yes ([place]) Hx Family Endocrine Disorder: Yes (DM) Father Living Status: Hx Family Cardiac Disorders: Yes (HTN) Hx Family Endocrine Disorder: Yes (DM) Hx Family Neurologic Disorders: Yes (stroke) Brother Hx Family Cardiac Disorders: Yes (HTN) Internal Medicine - H&P: Meds Lisinopril [Zestril] 20 mg PO DAILY 12/15/17 [History] Indomethacin 50 mg PO TID PRN 10/15/18 [History] Trazodone HCl 100 mg PO HS PRN 10/15/18 [History] Allergy/AdvReac Type Severity Reaction Status Date / Time No Known Allergies Allergy Verified 10/15/18 16:10 All Systems PM: A 10-system review of systems was performed and is negative for pertinent findings except as documented above in the HPI. - Constitutional Constitutional: anorexia, weakness, no chills, no fever(s) - Cardiovascular Cardiovascular ROS IM: diaphoresis, lightheadedness, no chest pain, no edema, no palpitations - Respiratory Respiratory: no cough, no hemoptysis, no wheezing - Gastrointestinal Gastrointestinal: abdominal pain, nausea, vomiting, no diarrhea - Genitourinary Genitourinary ROS male: no dysuria, no nocturia, no urinary hesitancy - Musculoskeletal Musculoskeletal ROS IM: no atrophy, no back pain - Integumentary Integumentary IM: no erythema, no pruritus, no sores - Neurological Neurological ROS: no confusion, no dizziness, no headache(s) - Psychiatric Psychiatric: anxiety, depression, hopelessness, suicidal ideation, no homicidal ideation - Endocrine Endocrine IM: no cold intolerance, no excessive sweating - Hematologic/Lymphatic Hematologic/Lymphatic: no easy bruising, no lymphadenopathy - Allergic/Immunologic Allergic/Immunologic: no GI upset with certain foods - Constitutional Vitals: Temp Pulse Resp BP Pulse Ox 98.1 F 93 20 101/69 100 11/24/18 11:40 11/24/18 14:39 11/24/18 14:39 11/24/18 14:39 11/24/18 14:39 Exam: Vitals: Reviewed General: Alert and oriented x4. In mild distress due to epigastric abdominal pain Skin: Normal color, no rash, no lesions. HEENT: Dry mucus membrane, EOM, pupils equal, round and reactive. Cardiovascular: RRR, normal S1 & S2, no rubs, murmurs or gallops. Lungs: CTA b/l, no wheezes or crackles. Abdomen: Soft, mild tenderness to deep palpation in the epigastric area, no rigidity. Extremities: No deformity, no edema or tenderness, no joint swelling or clubbing. Neurological: Normal cognition and motor skills. Rest of the physical exam is non contributory Internal Med - H&P Results - Labs CBC & Chem 7: 11/24/18 11:39 11/24/18 12:34 Labs: Short CBC 11/24/18 Range/Units 11:39 WBC 10.0 (4.3-11.1) K/mcL Hgb 20.6 H (12.9-16.9) g/dL Hct 56.2 H (37.5-50.1) % Plt Count 203 (140-400) K/mcL BMP 11/24/18 11/24/18 11:48 12:34 Sodium Cancelled 127 L Potassium Cancelled 3.7 Chloride Cancelled 92 L Carbon Dioxide Cancelled 20 L BUN Cancelled 9 Creatinine Cancelled 1.29 Glucose Cancelled 82 Calcium Cancelled 9.7 Cardiac Enzymes 11/24/18 Range/Units 11:48 Troponin I < 0.03 (< 0.04) ng/mL Liver Function 11/24/18 11/24/18 Range/Units 11:48 12:34 Total Bilirubin Cancelled 2.3 H Direct Bilirubin Cancelled 0.5 H AST Cancelled 31 ALT Cancelled 17 Alkaline Phosphatase Cancelled 81 Albumin Cancelled 4.2 - Impressions ITS Impressions Chest X-Ray 11/24/18 11:38 IMPRESSION: No evidence of acute cardiopulmonary disease. D/ / Deshawn Prasad MD / Deshawn Prasad MD Interpreting Provider: Deshawn Prasad MD Gallbladder Ultrasound 11/24/18 13:10 IMPRESSION: Unremarkable right upper quadrant ultrasound. D/ / Margarito Hilario MD / Margarito Hilario MD Interpreting Provider: Margarito Hilario MD - Diagnostic Studies Chest x-ray Status: image reviewed by me (No acute abnormalities. ) - Assessment and Plan (1) Abdominal pain Current Visit: No Status: Acute Assessment and plan: possible due to alcoholic gastritis. patient admits drinking 6-12 beers every single day. clear liquid diet started on PPI and anti-emetics Patient would benefit from an EGD as outpatient Qualifiers: Abdominal location: epigastric Qualified Code(s): R10.13 - Epigastric pain (2) Suicidal ideation Current Visit: Yes Status: Acute Assessment and plan: patient with a Hx of depression and alcohol abuse. reports feeling hopeless and helpless. reports having intermittent suicidal ideation. denies having a plan. sitter 1:1 psychiatry consulted (3) Relative polycythemia Current Visit: Yes Status: Acute Assessment and plan: likely due to hemoconcentration due to dehydration. patient with poor oral intake for the past 3 days. started on IV hydration will repeat cbc tomorrow morning (4) DVT prophylaxis Current Visit: No Status: Acute Assessment and plan: started on heparin (5) Depression Current Visit: No Status: Chronic Assessment and plan: patient started on Lexapro 10mg/d on 10/15/18, but he reports he has not been taking the medication and did not follow up with psychiatry for possible medication titration. Qualifiers: Depression Type: unspecified Qualified Code(s): F32.9 - Major depressive disorder, single episode, unspecified (6) Hyponatremia Current Visit: No Status: Acute Assessment and plan: possible beer potomania. started on 0.9NS @75mls/hr urine electrolyte ordered (7) Hyperlipidemia Current Visit: No Status: Chronic Assessment and plan: started on atorvastatin 40mg/PO daily. 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 but reports he takes the medication PRN. Qualifiers: Hypertension type: essential hypertension Qualified Code(s): I10 - Essential (primary) hypertension - Time Spent With Patient Total time spent is greater than 50% in coordination of care (as documented) at patient's floor/unit and/or counseling patient: Greater than 35 minutes (45)
[2018-11-24 16:09] LABS: Amphetamine Screen,Urine Negative ng/mL (Cutoff=1000); Barbiturate Screen,Urine Negative ng/mL (Cutoff=200); Benzodiazepines Screen,Urine Negative ng/mL (Cutoff=200); Cannabinoid Screen,Urine Negative ng/mL (Cutoff = 50); Cocaine Screen,Urine Negative ng/mL (Cutoff= 300); Opiate Screen,Urine Positive ng/mL (Cutoff=300); Phencyclidine Screen,Urine Negative ng/mL (Cutoff=25)
[2018-11-24 16:13] LABS: Acetaminophen < 10 mcg/mL (10-20); Ethanol < 10 mg/dL (Less than 10); Salicylate < 2.5 mg/dL (15.0-30.0)
[2018-11-24] MEDS: 0.9 % Sodium Chloride 1,000 ML IVC SCH (20:53)
[2018-11-24] MEDS: traZODone 50 MG TABLET PO SCH (20:53)
[2018-11-24] MEDS: Pantoprazole 40 MG VIAL IVP SCH (20:54)
[2018-11-24] MEDS: *HR* Heparin 5,000 UNIT/ML VIAL SQ SCH (22:25)
[2018-11-25 02:18] LABS: BUN/Creatinine Ratio 9 (6-26); Blood Urea Nitrogen 9 mg/dL (6-20); Calcium 8.3 mg/dL (8.6-10.3); Carbon Dioxide 23 mEq/L (23-29); Chloride 100 mEq/L (98-107); Cholesterol 116 mg/dL (< 200); Glucose 95 mg/dL (70-105); HDL Cholesterol 59 mg/dL (40-59); LDL Cholesterol,Calculated 40 mg/dL (0-99); Magnesium 2.1 mg/dL (1.6-2.6); Osmolality,Calculated 270 (280-300); Phosphorous 3.5 mg/dL (2.7-4.5); Potassium 3.9 mEq/L (3.5-5.1); Sodium 131 mEq/L (136-145); Triglycerides 86 mg/dL (< 150); eGFR For Non-African Americans > 60 (> 60)
[2018-11-25] MEDS: *HR* Heparin 5,000 UNIT/ML VIAL SQ SCH ×2 (05:07→18:18)
[2018-11-25] MEDS: 0.9 % Sodium Chloride 1,000 ML IVC SCH (07:13)
[2018-11-25] MEDS: Pantoprazole 40 MG VIAL IVP SCH (08:55)
[2018-11-25 09:01] LABS: Chloride,Urine < 15 mEq/L; Potassium,Urine 12.6 mEq/L; Sodium, Urine < 10.0 mEq/L
--- NOTE | 2018-11-25 09:08 | Discharge Summary ---
Orders not resulted at time of discharge: Pending orders 11/25/18 07:42 CBC [Complete Blood Count] [HEME] Stat Date of Encounter: 11/25/18 Time of Encounter: 09:07 - Discharge Diagnosis (1) Abdominal pain Priority: Primary Status: Resolved Qualifiers: Abdominal location: epigastric Qualified Code(s): R10.13 - Epigastric pain (2) Suicidal ideation Priority: Secondary Status: Acute (3) Relative polycythemia Priority: Secondary Status: Acute (4) DVT prophylaxis Priority: Secondary Status: Acute (5) Depression Priority: Secondary Status: Chronic Qualifiers: Depression Type: unspecified Qualified Code(s): F32.9 - Major depressive disorder, single episode, unspecified (6) Hyponatremia Priority: Secondary Status: Resolved (7) Hyperlipidemia Priority: Secondary Status: Chronic Qualifiers: Hyperlipidemia type: mixed hyperlipidemia Qualified Code(s): E78.2 - Mixed hyperlipidemia (8) Insomnia Priority: Secondary Status: Chronic Qualifiers: Insomnia type: alcohol-induced Qualified Code(s): F10.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 Montes De Oca is a 48 year old male PMH of HTN, Depression, Alcohol abuse, and HLD. Patient presented to the ED due to light headedness, dizziness and epigastric abdominal pain. Patient reports for the past week he has been feeling sick, which he describes as every morning waking up with light headedness, dizziness, nauseate and having 5/10 non-radiating, burning, epigastric abdominal pain. Reports for the past 3 days he has not been able to tolerate anything oral but alcohol due to epigastric pain. Patient was admitted to the hospital due to abdominal pain, secondary to possible alcoholic gastritis, patient was managed with IV IV hydration, bowel rest, antiemetic and PPIs with resolution of his acute symptoms. Patient reported intermittent suicidal ideation over the past couple of months, but denied having and plan psychiatry's was consulted for evaluation. Patient acute symptoms have resolved, and he is hemodynamically stable to be discharged. Educated the importance and benefits to his health quitting drinking. - Time Spent with Patient Total time spent providing and/or coordinating discharge services: Time spent: Greater than 30 minutes (35) - Discharge Medications Prescriptions: Continued Lisinopril [Zestril] 20 mg PO DAILY Indomethacin 50 mg PO TID PRN PRN Reason: Gout Trazodone HCl 100 mg PO HS Escitalopram [Lexapro] 10 mg PO DAILY Omeprazole [PriLOSEC] 20 mg PO DAILY PRN PRN Reason: Indigestion Home Medications: Lisinopril [Zestril] 20 mg PO DAILY 12/15/17 [History] Indomethacin 50 mg PO TID PRN 10/15/18 [History] Trazodone HCl 100 mg PO HS 10/15/18 [History] Escitalopram [Lexapro] 10 mg PO DAILY 11/24/18 [History] Omeprazole [PriLOSEC] 20 mg PO DAILY PRN 11/24/18 [History] Allergies/Adverse Reactions: Allergy/AdvReac Type Severity Reaction Status Date / Time No Known Allergies Allergy Verified 10/15/18 16:10 Date of admission: 11/24/18 17:12 Primary care physician: Robbin Cavanaugh DO Consults: 11/24/18 16:00 Consult to Psychiatry [CONS] Routine Consulting Provider: Psychiat[facility] [place] Reason consult: Sitter/1:1 [place] Slip initiated date and time: suicidal ideation Call Completed: No - Constitutional Vitals: Temp Pulse Resp BP Pulse Ox 98.5 F 83 17 94/62 98 11/25/18 05:21 11/25/18 05:21 11/25/18 05:21 11/25/18 05:21 11/25/18 05:21 Exam: Vitals: Reviewed General: Alert and oriented x4. In no distress Skin: Normal color, no rash, no lesions. HEENT: EOM, pupils equal, round and reactive. Cardiovascular:RRR, normal S1 & S2, no rubs, murmurs or gallops. Lungs: CTA b/l, no wheezes or crackles. Abdomen: Soft, non-tender, no rigidity. Extremities: No deformity, no edema or tenderness, no joint swelling or clubbing. Neurological: Normal cognition and motor skills. Rest of the physical exam is non contributory - Patient Status Disposition: Home, Self-Care Condition: Good Functional capacity at discharge: independent ambulation Overall status at discharge: patient is back to baseline - Discharge Instructions Follow Up With: Robbin Cavanaugh, [Primary Care Provider] - - Diet and Activity Activity: resume usual activities as tolerated Diet: low salt diet
--- NOTE | 2018-11-25 09:42 | Consult Note ---
Date of Encounter: 11/25/18 Time of Encounter: 08:30 Assessment & Recommendation (1) Alcohol abuse Current visit: No Status: Chronic Assessment & Recommendation: Patient admits daily intake of 8-12 beers per night. Recent difficulties with law related to DUIs; court hearing on 12/16/18. C- patient has tried to cut back in the past A- patient denies limited G- patient has guilt of DUI and loss of relationships E- patient admits drinking when nauseated upon awakening but mainly after work at night as nothing else to do Thiamine and folic acid Recommend admission to 1A for further observation and [place] [facility] [place] (2) Major depression, recurrent Current visit: Yes Status: Acute Assessment & Recommendation: Sleep- no change, takes trazodone Interest- admits sitting at home at work with not much else to do Appetite- affected by alcohol intake Psychomotor- no change Suicidal Ideation- admits intermittent thoughts, no specific plan on current questioning Recommend admission to 1A due to suicidal ideations for observation and time to link with additional resources in community. Started on lexapro 10mg on 10/15/18, patient has not noticed improvement however has not consistently taken. Qualifiers: Active/Remission status: currently active Major depression episode severity: moderate Qualified Code(s): F33.1 - Major depressive disorder, recurrent, moderate History of Present Illness Patient: known to practice within the last 3 years Requesting Physician: Elsa Osorio MD Reason for consult: suicidal History of present illness: Mr. Montes De Oca is a 48 year old male who presented to the ED on 11/24/18 due to lightheadedness, dizziness, and nausea. He has history of depression, substance use disorder of alcohol, HTN, GERD, HLD. On initial presentation he admits to intermittent SI without specific plan however mentioned to the ED physician of possibly considering overdose. Patient also admits current alcohol intake of 8 to 12 beers per night despite past complications of DUI. He admits depressed mood and multiple stressors related to variable work and compounding bills. He was recently seen here at [place] on the medical floor with a psychiatry consult 10/15/18 for similar complaints at which time he was started on lexapro 10mg but has not been consistently taking this. In addition, he has followed at [facility] for the past few months but does not feel they have been able to adequately help him as his transportation is limited due to his suspended license and his limited skills/access to computer resources. CC: Elsa Osorio MD Past Med Surg Social Fam HX - Past Medical History Medical history: GERD, hyperlipidemia, hypertension - Past Psychiatric History Psychiatric history: Reports: depression Past psychiatric history details: Linked with [facility] not compliant with meds or outpt services. 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) Current living situation: Home Activity Level: Independent ambulation Recent Out of Country Travel Within the Last 8 Weeks: No Exposure or Possible Exposure to Illness During Travel: No - Family History Mother Living Status: Hx Family Cardiac Disorders: Yes ([place]) Hx Family Endocrine Disorder: Yes (DM) Father Living Status: Hx Family Cardiac Disorders: Yes (HTN) Hx Family Endocrine Disorder: Yes (DM) Hx Family Neurologic Disorders: Yes (stroke) Brother Hx Family Cardiac Disorders: Yes (HTN) Medications & Allergies Lisinopril [Zestril] 20 mg PO DAILY 12/15/17 [History] Indomethacin 50 mg PO TID PRN 10/15/18 [History] Trazodone HCl 100 mg PO HS 10/15/18 [History] Escitalopram [Lexapro] 10 mg PO DAILY 11/24/18 [History] Omeprazole [PriLOSEC] 20 mg PO DAILY PRN 11/24/18 [History] Allergy/AdvReac Type Severity Reaction Status Date / Time No Known Allergies Allergy Verified 10/15/18 16:10 Review of Systems Constitutional: Denies: fever Eyes: Denies: eye pain Ears, Nose, Throat: Denies: ear pain Cardiovascular: Denies: chest pain Respiratory: Denies: cough Gastrointestinal: Reports: nausea, vomiting Genitourinary male: Denies: urgency Musculoskeletal: Denies: back pain Integumentary: Denies: rash Neurological: Denies: headache Psychiatric: Reports: depression, anxiety, suicidal ideation Endocrine: Denies: fatigue Hematologic/Lymphatic: Denies: easy bleeding Allergic/Immunologic: Denies: facial swelling Psychiatry Exam - Constitutional Vitals: Temp Pulse Resp BP Pulse Ox 98.5 F 83 17 94/62 98 11/25/18 05:21 11/25/18 05:21 11/25/18 05:21 11/25/18 05:21 11/25/18 05:21 General appearance: age & developmentally appropriate, disheveled - Musculoskeletal Gait: other (in bed) Station: relaxed Strength & Tone: normal for patient - Psychiatric Patient Orientation: Yes Person, Yes Time, Yes Place Level of alertness: Alert Behavior: cooperative, anxious Psychomotor activity: Repetitive movements (picking at armband) Eye Contact: Minimal Contact Mood Description: Depressed Patient description of mood: 'depressed' Affect description: congruent with mood, anxious Speech Volume: Soft/Quiet Speech pattern: normal rate Language & Vocabulary: consistent with education Thought Process: Intact, Linear, Perseveration Thought Content: Yes Intact, Yes Suicidal ideation, No Overt delusions, No Paranoid delusion Perceptual Disturbances: No Reacting to internal stimuli, No Auditory hallucinations, No Visual hallucinations Attention Span Ability: Capable of Focused Attention, Capable of Sustained Attention Memory Description: Grossly Intact, Recent Intact Patient Reliability: Reliable Historian Fund of knowledge: Yes average Intelligence Estimate: Average Judgment: Limited Insight: Partial Results - Drug Levels and Toxicology Drug Levels and Toxicology: Drug Levels and Toxicity 11/24/18 11/24/18 15:20 15:45 Urine Opiates Screen Positive H Acetaminophen < 10 L Ur Barbiturates Screen Negative Ur Phencyclidine Scrn Negative Ur Amphetamines Screen Negative U Benzodiazepines Scrn Negative Urine Cocaine Screen Negative U Marijuana (THC) Screen Negative Ethyl Alcohol < 10 - Labs Labs: Laboratory Last Values WBC 10.0 K/mcL (4.3-11.1) 11/24/18 11:39 RBC 6.26 M/mcL (4.19-5.50) H 11/24/18 11:39 Hgb 20.6 g/dL (12.9-16.9) H 11/24/18 11:39 Hct 56.2 % (37.5-50.1) H 11/24/18 11:39 MCV 89.8 fL (83.0-100.0) 11/24/18 11:39 MCH 32.9 pg (28.0-33.3) 11/24/18 11:39 MCHC 36.7 g/dL (31.6-35.5) H 11/24/18 11:39 RDW 12.7 % (11.5-14.5) 11/24/18 11:39 Plt Count 203 K/mcL (140-400) 11/24/18 11:39 MPV 9.4 fL (9.4-12.4) 11/24/18 11:39 Immature Plt Fraction 6.0 % (1.1-6.1) 11/24/18 11:39 Sodium 131 mEq/L (136-145) L 11/25/18 01:13 Potassium 3.9 mEq/L (3.5-5.1) 11/25/18 01:13 Chloride 100 mEq/L (98-107) 11/25/18 01:13 Carbon Dioxide 23 mEq/L (23-29) 11/25/18 01:13 BUN 9 mg/dL (6-20) 11/25/18 01:13 1.01 mg/dL (0.70-1.30) 11/25/18 01:13 Est GFR ( Amer) > 60 (> 60) 11/25/18 01:13 Est GFR (Non-Af Amer) > 60 (> 60) 11/25/18 01:13 9 (6-26) 11/25/18 01:13 Glucose 95 mg/dL (70-105) 11/25/18 01:13 POC Glucose 92 mg/dL (70-99) 11/24/18 20:17 270 (280-300) L 11/25/18 01:13 Calcium 8.3 mg/dL (8.6-10.3) L 11/25/18 01:13 Phosphorus 3.5 mg/dL (2.7-4.5) 11/25/18 01:13 Magnesium 2.1 mg/dL (1.6-2.6) 11/25/18 01:13 2.3 mg/dL (0.3-1.0) H 11/24/18 12:34 0.5 mg/dL (0.0-0.2) H 11/24/18 12:34 1.8 mg/dL (0.0-1.2) H 11/24/18 12:34 AST 31 Units/L (13-39) 11/24/18 12:34 ALT 17 Units/L (7-52) 11/24/18 12:34 81 Units/L (34-104) 11/24/18 12:34 < 0.03 ng/mL (< 0.04) 11/24/18 11:48 7.8 g/dL (6.4-8.9) 11/24/18 12:34 4.2 g/dL (3.5-5.7) 11/24/18 12:34 3.6 g/dL (2.4-3.5) H 11/24/18 12:34 1.2 (1.1-2.2) 11/24/18 12:34 Triglycerides 86 mg/dL (< 150) 11/25/18 01:13 Cholesterol 116 mg/dL (< 200) 11/25/18 01:13 LDL Cholesterol, Calc 40 mg/dL (0-99) 11/25/18 01:13 VLDL Cholesterol, Calc 17 mg/dL (< 31) 11/25/18 01:13 59 mg/dL (40-59) 11/25/18 01:13 2.0 (0-4.9) 11/25/18 01:13 56 Units/L (11-82) 11/24/18 11:48 81 mOsm/kg (300-1090) L 11/24/18 11:33 < 10.0 mEq/L 11/24/18 15:23 12.6 mEq/L 11/24/18 15:23 < 15 mEq/L 11/24/18 15:23 Salicylates < 2.5 mg/dL (15.0-30.0) L 11/24/18 15:45 Positive ng/mL (Lenqen=902) H 11/24/18 15:20 Acetaminophen < 10 mcg/mL (10-20) L 11/24/18 15:45 Ur Barbiturates Screen Negative ng/mL (Crihzf=098) 11/24/18 15:20 Ur Phencyclidine Scrn Negative ng/mL (Cutoff=25) 11/24/18 15:20 Ur Amphetamines Screen Negative ng/mL (Lrzabp=6692) 11/24/18 15:20 U Benzodiazepines Scrn Negative ng/mL (Xqocyb=381) 11/24/18 15:20 Negative ng/mL (Cutoff= 300) 11/24/18 15:20 U Marijuana (THC) Screen Negative ng/mL (Cutoff = 50) 11/24/18 15:20 Ur Drug Screen Interp See Below 11/24/18 15:20 Ethyl Alcohol < 10 mg/dL (Less than 10) 11/24/18 15:45 Hemolyzed 11/24/18 12:26 - Impressions Impressions Chest X-Ray 11/24/18 11:38 IMPRESSION: No evidence of acute cardiopulmonary disease. D/ / Deshawn Prasad MD / Deshawn Prasad MD Interpreting Provider: Deshawn Prasad MD Gallbladder Ultrasound 11/24/18 13:10 IMPRESSION: Unremarkable right upper quadrant ultrasound. D/ / Margarito Hilario MD / Margarito Hilario MD Interpreting Provider: Margarito Hilario MD Consult Discharge Plan - Plan Referrals: Robbin Cavanaugh DO [Primary Care Provider] -
[2018-11-25 10:11] LABS: Basophils % 0.7 %; Eosinophils # 0.1 K/mcL (0.0-0.6); Hematocrit 47.1 % (37.5-50.1); Immature Granulocytes % 0.3 % (0-4); Lymphocytes # 1.1 K/mcL (0.6-4.6); Lymphocytes % 18.1 %; Mean Corpuscular Hemoglobin 32.5 pg (28.0-33.3); Mean Corpuscular Volume 92.7 fL (83.0-100.0); Mean Platelet Volume 9.8 fL (9.4-12.4); Monocytes # 0.5 K/mcL (0.0-1.3); Monocytes % 7.8 %; Neutrophils # 4.3 K/mcL (1.6-8.9); Platelet Count 126 K/mcL (140-400); Red Blood Count 5.08 M/mcL (4.19-5.50); Red Cell Distribution Width 12.9 % (11.5-14.5); Segmented Neutrophils % 72.1 %
[2018-11-25 10:15] LABS: Hemoglobin 16.5 g/dL (12.9-16.9)
[2018-11-25] MEDS: traZODone 50 MG TABLET PO SCH (22:59)
[2018-11-26] MEDS: *HR* Heparin 5,000 UNIT/ML VIAL SQ SCH ×4 (05:12→23:15)
--- NOTE | 2018-11-26 08:22 | Event Note ---
Date of Encounter: 11/26/18 Time of Encounter: 08:18 I have seen and evaluated the patient at bedside. He reports that yesterday he had one episode of non-bilious, non-bloody vomiting after he had breakfast, but reports that he ate lunch and dinner without issues. He denies nausea, or abdominal pain this morning. No chest pain, or shortness of breath. Physical Exam: Vitals: Reviewed Vitals: Reviewed General: Alert and oriented x4. In no distress Cardiovascular:RRR, normal S1 & S2, no rubs, murmurs or gallops. Lungs: CTA b/l, no wheezes or crackles. Abdomen: Soft, non-tender, no rigidity. Extremities: No edema Neurological: Normal cognition. Rest of the physical exam is non contributory Assessment 1. Suicidal ideation 2. Abdominal pain (resolved) 3. Alcohol abuse 4. HTN 5. DVT prophylaxis 6. Depression Plan patient is medically cleared to be discharged to A1 discharge summary dictated yesterday.
[2018-11-26] MEDS: Pantoprazole 40 MG VIAL IVP SCH (09:54)
[2018-11-26] MEDS: Indomethacin 25 MG CAPSULE PO PRN ×2 (12:33→20:21)
[2018-11-26] MEDS: traZODone 50 MG TABLET PO SCH (23:14)
[2018-11-27] MEDS: *HR* Heparin 5,000 UNIT/ML VIAL SQ SCH (05:23)
--- NOTE | 2018-11-27 09:26 | Internal Med Progress Note ---
Hospitalist Progress Note - Encounter Date of Encounter: 11/27/18 Time of Encounter: 09:23 - Subjective Interval History: I have seen and evaluated the patient at bedside. patient reports feeling well, reports tolerating his diet yesterday without nausea or vomiting episodes. denies chest pain, shortness of breath or abdominal pain. - Exam Vitals: Temp Pulse Resp BP Pulse Ox 98 F 66 16 112/78 98 11/27/18 07:00 11/27/18 07:00 11/27/18 07:00 11/27/18 07:00 11/27/18 07:00 Exam: Vitals: Reviewed General: Alert and oriented x4. In no distress Cardiovascular:RRR, normal S1 & S2, no rubs, murmurs or gallops. Lungs: CTA b/l, no wheezes or crackles. Abdomen: Soft, non-tender, no rigidity. Extremities: No edema Neurological: Normal cognition. Rest of the physical exam is non contributory - Assessment and Plan (1) Abdominal pain Current Visit: No Status: Resolved Assessment and Plan: possible alcoholic gastritis. continue omeprazole 20mg/PO daily (2) Suicidal ideation Current Visit: Yes Status: Acute Assessment and Plan: patient is medically cleared to be transferred to A1. plan of care per psychiatry recommendations (3) Relative polycythemia Current Visit: Yes Status: Resolved (4) Depression Current Visit: No Status: Chronic Assessment and Plan: patient on Lexapro 10mg/d (5) Hyponatremia Current Visit: No Status: Resolved (6) Hyperlipidemia Current Visit: No Status: Chronic Assessment and Plan: on atorvastatin 40mg/PO daily (7) Insomnia Current Visit: No Status: Chronic Assessment and Plan: on trazadone 100mg/PO daily (8) Hypertension Current Visit: No Status: Chronic Assessment and Plan: BP has been running in the normal range off anti hypertensive medications. will monitor DVT Prophylaxis: On heparin subQ - Summary of Assessment and Plan Summary of Assessment and Plan: Patient is discharged to A1. - Time Spent with Patient Total time spent is greater than 50% in coordination of care (as documented) at patient's floor/unit and/or counseling patient: Greater than 35 minutes (40) Plan of Care Discussed with: patient (and the nurse) Internal Medicine: Result - Labs CBC & Chem 7: 11/25/18 09:23 11/25/18 01:13 Consult Discharge Plan - Plan Referrals: Robbin Cavanaugh DO [Primary Care Provider] - (The patient will need to call the office to schedule a follow up appointment. ) (1) Abdominal pain Qualifiers: Abdominal location: epigastric Qualified Code(s): R10.13 - Epigastric pain (4) Depression Qualifiers: Depression Type: unspecified Qualified Code(s): F32.9 - Major depressive diso rder, single episode, unspecified (6) Hyperlipidemia Qualifiers: Hyperlipidemia type: mixed hyperlipidemia Qualified Code(s): E78.2 - Mixed hyperlipidemia (7) Insomnia Qualifiers: Insomnia type: alcohol-induced Qualified Code(s): F10.982 - Alcohol use, unspecified with alcohol-induced sleep disorder (8) Hypertension Qualifiers: Hypertension type: essential hypertension Qualified Code(s): I10 - Essential (primary) hypertension
[2018-11-27 12:04] VITALS: BP 109/74
== END 2018-11-27 13:15 | disposition home or self-care (01) ==
LOC: EMEROOARM 11:26 → 3ANU 11:26 → SUATTDRO 17:12 → 3ANU 18:45
PROVIDERS: ADMIT Internal Medicine; ATTEND Internal Medicine

== ENCOUNTER 2018-11-27 13:37 | Inpatient (IN) ==
[2018-11-27] MEDS ORDERED: *HR* LORazepam 1 MG TABLET PO PRN (14:56)
[2018-11-27] MEDS ORDERED: Ibuprofen 400 MG TABLET PO PRN (14:56)
[2018-11-27] MEDS ORDERED: Mag Hydrox/Al Hydrox/Simeth 30 ML UDC PO PRN (14:56)
[2018-11-27] MEDS ORDERED: hydrOXYzine pamoate 25 MG CAPSULE PO PRN (14:56)
[2018-11-27] MEDS ORDERED: *HR* LORazepam 2 MG/ML VIAL IM PRN (14:56)
[2018-11-27] MEDS ORDERED: traZODone 50 MG TABLET PO PRN (14:56)
[2018-11-27] MEDS ORDERED: Haloperidol Lactate 5 MG/ML VIAL IM PRN (14:56)
[2018-11-27] MEDS ORDERED: MOM Conc 10 ML UD.LIQ PO PRN (14:56)
[2018-11-27] MEDS ORDERED: Indomethacin 25 MG CAPSULE PO PRN (15:00)
[2018-11-27] MEDS ORDERED: traZODone 50 MG TABLET PO SCH (21:00)
[2018-11-28] MEDS ORDERED: Lisinopril 20 MG TABLET PO SCH (09:00)
[2018-11-28 12:06] VITALS: BP 113/77
--- NOTE | 2018-11-28 19:47 | Discharge Summary ---
Date of Encounter: 11/28/18 Time of Encounter: 19:31 History of Present Illness Chief complaint: suicidal ideation Admitted From: Home History of Present Illness: Mr. Montes De Oca is a 48 year old male who was admitted as a transfer from the medical floor. He initially presented with symptoms of alcoholic gastritis and he was stabilized medically before coming to . Client endorsed vague SI while on the medical floor and was admitted to as a safety precaution. On eval today client denies SI, intent, or plan. He states he has experienced vague SI in the past but denies the feelings are anything he would ever act on. He admits to multiple stressors including the loss of several family members and financial constraints due to the loss of his job and facing the threat of having his utilities cut off. Client had a recent DUI and struggles finding new employment due to lack of transportation. He has a sister who is supportive but she lives outside the jurisdiction he can travel in until his DUI probation has . 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 Client states he has been dealing with these stressors for a long time and does the best he can. Drinks excessively because he has "nothing else to do" and "everyone hangs out at the bar" after a job has been completed. Denies withdrawals and denies any other recent drugs of abuse. Not particularly interested in stopping alcohol use but admits he cannot afford to drink all of the time and goes for periods without drinking. Minimal insight that recent health concerns likely related to drinking. Started on Lexapro when seen as a consult on the medical floor a couple of months ago. Denies he has been taking it as he should but reports he is willing to start. Denies a history of suicide attempts or inpatient mental health hospitalizations. No real significant mental health history. Future oriented. Wants to work. Sees inpatient hospitalization as working against his primary goal of gaining employment. Continuing inpatient treatment likely counterproductive. Client reports he will return to the ER if he feels he is a safety risk to himself at any point. Past Med Surg Social Fam HX - Past Medical History Medical history: GERD, hyperlipidemia, hypertension - Past Psychiatric History Psychiatric history: Reports: depression Family psychiatric history: No Family History of Suicide: None - Past Surgical History Surgical History: non-contributory - Social History Smoking Status: Never smoker Smokeless Tobacco Status: No Alcohol use: heavy, recent Drug use: marijuana - Family History Mother Living Status: Hx Family Cardiac Disorders: Yes (IA) Hx Family Endocrine Disorder: Yes (DM) Father Living Status: Hx Family Cardiac Disorders: Yes (HTN) Hx Family Endocrine Disorder: Yes (DM) Hx Family Neurologic Disorders: Yes (stroke) Brother Adopted: [place]: [place] Age: 45 Living Status: Still Living Hx Family Cardiac Disorders: No Hx Family Respiratory Disorders: No Hx Family Cancer: No Hx Family GI Disorders: No Hx Family Genitourinary Disorders: No Hx Family Endocrine Disorder: No Hx Family Musculoskeletal Disorders: No Hx Family Neuromuscular Disorders: No Hx Family Neurologic Disorders: No Hx Family HEENT Disorders: No Hx Family Autoimmune Disorders: No Hx Family Reproductive Disorders: No Hx Family Psychosocial Disorders: No Hx Family Medical Disorders: No Medications - Discharge Medications Lisinopril [Zestril] 20 mg PO QAM 12/15/17 [History] Indomethacin 50 mg PO TID PRN 10/15/18 [History] Trazodone HCl 100 mg PO HS PRN 10/15/18 [History] Escitalopram [Lexapro] 10 mg PO QAM 11/24/18 [History] Allergy/AdvReac Type Severity Reaction Status Date / Time No Known Allergies Allergy Verified 11/28/18 08:40 Review of Systems Constitutional: Denies: fever, chills, weakness, weight change Eyes: Denies: eye pain, vision change Ears, Nose, Throat: Denies: ear pain, throat pain, dental pain, hearing loss, congestion Cardiovascular: Denies: chest pain, palpitations, dyspnea on exertion Respiratory: Denies: cough, dyspnea, wheezes Gastrointestinal: Denies: abdominal pain, nausea, vomiting, diarrhea, constipation Genitourinary male: Denies: urgency, dysuria, frequency, genital lesions Musculoskeletal: Denies: joint swelling, joint pain Integumentary: Denies: rash, lesions, pruritus Neurological: Denies: headache, weakness, numbness, memory loss Endocrine: Denies: fatigue, heat or cold intolerance Hematologic/Lymphatic: Denies: easy bruising, lymphadenopathy Allergic/Immunologic: Denies: urticaria, itchy eyes Exam - HEENT Head exam IM: Present: atraumatic Eye exam IM: Present: EOMI, normal appearance, PERRL - Neurological Neurological exam: Present: CN II-XII intact - Respiratory Respiratory exam IM: Present: CTAB - GI/Abdominal GI/Abdominal exam IM: Present: normal bowel sounds, soft. Absent: tenderness - Extremities Extremities exam IM: Present: full ROM - Skin Skin exam IM: Present: dry, warm - Constitutional Vitals: Temp Pulse Resp BP Pulse Ox 98 F 86 18 113/77 100 11/28/18 09:00 11/28/18 09:00 11/28/18 09:00 11/28/18 09:00 11/28/18 09:00 General appearance: age & developmentally appropriate, well-groomed, well- nourished - Musculoskeletal Gait: normal Station: relaxed Strength & Tone: normal for patient - Psychiatric Patient Orientation: Yes Person, Yes Time, Yes Place Level of alertness: Alert Behavior: calm, cooperative Psychomotor activity: Normal Eye Contact: Maintains Eye Contact Mood Description: Depressed Affect description: full range Speech Volume: Normal Speech pattern: normal rate, normal rhythm, normal tone, fluent, spontaneous Language & Vocabulary: consistent with education Thought Process: Linear, Goal Oriented Thought Content: No Suicidal ideation, No Homicidal ideation, No Overt delusions Perceptual Disturbances: No Auditory hallucinations, No Visual hallucinations Attention Span Ability: Capable of Focused Attention Memory Description: Grossly Intact Patient Reliability: Reliable Historian Fund of knowledge: Yes abstraction ability, Yes average, Yes aware of current events Intelligence Estimate: Average Judgment: Limited Insight: Minimal Diagnosis - Discharge Diagnosis (1) Major depression, recurrent Status: Acute Qualifiers: Active/Remission status: currently active Major depression episode severity: moderate Qualified Code(s): F33.1 - Major depressive disorder, recurrent, moderate (2) Alcohol dependence Status: Acute Qualifiers: Substance use status: alcohol-induced mood disorder Qualified Code(s): F10.24 - Alcohol dependence with alcohol-induced mood disorder Assessment and Plan - Patient/Caregiver Discharge Instructions Activity: resume usual activities as tolerated Diet: regular diet - Follow up Plan Follow up with: [facility] [Outside] (Lazara has been asked to call you to set up an appointment. Please call them at the number above if you have not heard anything by Wednesday. ) Functional capacity at discharge: independent ambulation Overall status at discharge: Stable Disposition: Home, Self-Care Provider Date of admission: 11/27/18 13:37 Primary care physician: PCP NONE Discharging clinician: [facility] Hospital Course Hospital course: Mr. Montes De Oca is a 48 year old male who was admitted as a transfer from the medical floor. He initially presented with symptoms of alcoholic gastritis and he was stabilized medically before coming to . Client endorsed vague SI while on the medical floor and was admitted to as a safety precaution. On eval today client denies SI, intent, or plan. He states he has experienced vague SI in the past but denies the feelings are anything he would ever act on. He admits to multiple stressors including the loss of several family members and financial constraints due to the loss of his job and facing the threat of having his utilities cut off. Client had a recent DUI and struggles finding new employment due to lack of transportation. He has a sister who is supportive but she lives outside the jurisdiction he can travel in until his DUI probation has . 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 Client states he has been dealing with these stressors for a long time and does the best he can. Drinks excessively because he has "nothing else to do" and "everyone hangs out at the bar" after a job has been completed. Denies withdrawals and denies any other recent drugs of abuse. Not particularly interested in stopping alcohol use but admits he cannot afford to drink all of the time and goes for periods without drinking. Minimal insight that recent health concerns likely related to drinking. Started on Lexapro when seen as a consult on the medical floor a couple of months ago. Denies he has been taking it as he should but reports he is willing to start. Denies a history of suicide attempts or inpatient mental health hospitalizations. No real significant mental health history. Future oriented. Wants to work. Sees inpatient hospitalization as working against his primary goal of gaining employment. Continuing inpatient treatment likely counterproductive. Client reports he will return to the ER if he feels he is a safety risk to himself at any point. Patient was educated of his diagnosis and the risks, benefits, and side effects of this treatment and alternative treatment options and was monitored for responsiveness and side effects. Mood, anxiety, sleep, appetite, and interest improved, as did future orientation. Self-harm thoughts subsided, thinking cleared, psychosis resolved, and mood stabilized. Patient was able to attend both individual and group therapy sessions as well as meeting with the psychiatrist daily and urged to discuss any medication or treatment issues or other concerns. The patient was educated primarily by verbal means about their diagnosis and manifestations in their life. The option for treatment including group and individual therapy programming was offered to the patient in the use of medications with all their potential risks, benefits, and side effects were discussed with the patient at length. The patient was given the opportunity to ask questions and was noted to participate in the treatment in the planning process. The patient felt ready and eager to be discharged from the inpatient psychiatric unit to continue on with treatment as an outpatient. The patient agreed that he is safe for this disposition. The patient was considered to be able to participate in informed consent and decision making with respect to medical, legal, and financial issues of the time of discharge. At the time of discharge the patient adamantly denied any concerns for lethality including suicidal or homicidal thoughts ideations or plans and was future oriented toward ongoing mental health care, medical follow-up and sobriety. - Time Spent with Patient Total time spent providing and/or coordinating discharge services: Procedures - Procedures Procedures: Medication Management, Crisis Stabilization, Supportive Therapy, Group Therapy Quality - Multiple Antipsychotics Patient discharged on 2 or more antipsychotic medications: No
== END 2018-11-28 12:20 | disposition home or self-care (01) | DRG 751 ==
LOC: 1ANU 13:37
PROVIDERS: ADMIT Psychiatry & Neurology Psychiatry; ATTEND Psychiatry & Neurology Psychiatry

== ENCOUNTER 2019-01-21 15:15 | Observation (INO) ==
--- NOTE | 2019-01-21 15:24 | Emergency Department Note ---
Disposition Clinical Impression: Atypical chest pain Disposition: Admitted As Inpatient Condition: Good Referrals: Robbin Cavanaugh DO [Primary Care Provider] - Time of Disposition: 17:55 General Adult HPI - General Stated complaint: Abdominal pain, chest pain Time Seen by Provider: 01/21/19 15:20 Source: patient, EMS Mode of arrival: EMS Limitations: no limitations Nursing Notes Reviewed: Yes Vital Signs Reviewed: Yes - History of Present Illness HPI Narrative: Male patient presents emergency department complaining of a three-day history of left-sided chest pain. States it starts in his epigastric region radiates up to his left chest. Has had some nonbloody nonbilious vomiting today. Was seen at this facility yesterday and diagnosed with acid reflux. He left asymptomatic but the pain returned this morning. He tried his omeprazole, Tums, milk with no relief of the pain. It was noted yesterday the patient was very anxious. Patient is extremely anxious at this time. Clutching his left chest. Moving all about the bed. No abdominal pain noted. Does have some retching on exam. States that he does generally drink beer every day but is never had seizures fr om stopping drinking. He denies any fevers or chills. Denies any shortness of breath. - Related Data Home Medications Medication Instructions Recorded Confirmed Lisinopril [Zestril] 20 mg PO QAM 12/15/17 11/28/18 Indomethacin 50 mg PO TID PRN 10/15/18 11/28/18 Trazodone HCl 100 mg PO HS PRN 10/15/18 11/28/18 Escitalopram [Lexapro] 10 mg PO QAM 11/24/18 11/28/18 Allergies Allergy/AdvReac Type Severity Reaction Status Date / Time No Known Allergies Allergy Verified 11/28/18 08:40 All systems ED: reviewed and negative except as stated. Review of Systems: As Per HPI Constitutional: Denies: fever, chills ENT ED: Denies: congestion Cardiovascular: Reports: chest pain. Denies: palpitations, syncope Respiratory: Denies: cough, dyspnea Gastrointestinal: Reports: abdominal pain (Epigastric that radiates to his left chest), nausea, vomiting. Denies: diarrhea Psychiatric: Reports: anxiety Past Medical History - Past Medical History Attestation: Yes The following information was validated with the patient. Source: patient Medical history: Reports: GERD, hyperlipidemia, hypertension Surgical history: Reports: non-contributory Psychiatric history: Reports: depression - Social History Smoking Status: Current every day smoker Smokeless Tobacco Status: Yes Alcohol use: Reports: heavy Drug use: Reports: none Physical Exam - General Limitations: no limitations General appearance: anxious - Head Head exam: atraumatic, normocephalic, normal inspection - Eye Eye exam: Present: normal appearance, PERRL, EOMI - ENT ENT exam: normal exam, normal oropharynx, mucous membranes moist - Neck Neck exam: Present: normal inspection, full ROM, trachea midline - Chest Chest inspection: Present: normal inspection, symmetric chest wall rise - Respiratory Respiratory exam: Present: normal lung sounds bilaterally. Absent: respiratory distress, accessory muscle use - Cardiovascular Cardiovascular exam: Present: normal rhythm, tachycardia, normal heart sounds - Abdominal Exam Abdominal exam: Present: soft, Non-Tender. Absent: distention, guarding, rebound, rigidity, organomegaly, De La Rosa's sign, Rovsing's sign, tenderness at McBurney's Point - Extremities Exam Extremities exam: Present: normal inspection, full ROM, normal capillary refill. Absent: tenderness, pedal edema - Neurological Exam Neurological exam: Present: alert, oriented X3 - Psychiatric Psychiatric exam: Present: anxious - Skin Skin exam: Present: warm, dry, intact, normal color. Absent: rash, cyanosis, diaphoresis Course Course Narrative: Patient extremely anxious while in bed. Clutching his left chest. Retching. Lung sounds are clear. Abdomen is nondistended and soft in nature. States this is a sharp pain in the left side of his chest. We will get basic lab workup as well as a CT of his chest. We will provide patient with a GI cocktail as he does have a history of acid reflux and states that the pain starts in his epigastric region radiates to his chest. We will also get a basic lab workup including a troponin. No signs of acute ischemia is EKG. He is tachycardic with significant left-sided chest pain. We will get a CTA of his chest at this time as well. - Reevaluation(s) Reevaluation #1: Patient did get some relief with the GI cocktail. However he is still in pain. He rates his pain as a 5 out of 5 pain with pressure sensation to the left chest. Lungs initial troponin is negative his pain did relieve after yesterday's ER course and is now back. This is the patient's second time in the ER with similar left-sided chest pain in 2 days. We will admit patient to hospital for further cardiac evaluation secondary to reoccurrence of pain and is now being able to relieve it while here.. Vital Signs Temperature 97.5 F L 01/21/19 15:18 Pulse Rate 98 01/21/19 15:18 Respiratory Rate 28 01/21/19 15:18 Blood Pressure 132/50 01/21/19 15:18 O2 Sat by Pulse Oximetry 100 01/21/19 15:18 Temperature 97.5 F L 01/21/19 15:18 Pulse Rate 98 01/21/19 15:18 Respiratory Rate 28 01/21/19 15:18 Blood Pressure 132/50 01/21/19 15:18 O2 Sat by Pulse Oximetry 100 01/21/19 15:18 Oxygen Delivery Oxygen Delivery Room Air Medical Decision Making - Medical Records Medical records reviewed: Yes I reviewed the patient's medical records. - Lab Data Lab results reviewed: Yes I reviewed the patient's lab results. Result diagrams: 01/21/19 15:44 01/21/19 15:44 Lab Results 01/21/19 01/21/19 01/21/19 Range/Units 15:44 15:44 15:44 WBC 10.5 D (4.3-11.1) K/mcL RBC 5.67 H (4.19-5.50) M/mcL Hgb 17.9 H (12.9-16.9) g/dL Hct 50.4 H (37.5-50.1) % MCV 88.9 (83.0-100.0) fL MCH 31.6 (28.0-33.3) pg MCHC 35.5 (31.6-35.5) g/dL RDW 12.0 (11.5-14.5) % Plt Count 211 (140-400) K/mcL MPV 9.7 (9.4-12.4) fL Immature Gran % 0.7 (0-4) % Seg Neutrophils % 80.9 % Lymphocytes % 10.5 % Monocytes % 7.0 % Eosinophils % 0.2 % Basophils % 0.7 % Neutrophils # 8.5 (1.6-8.9) K/mcL Lymphocytes # 1.1 (0.6-4.6) K/mcL Monocytes # 0.7 (0.0-1.3) K/mcL Eosinophils # 0.0 (0.0-0.6) K/mcL Basophils # 0.1 (0.0-0.2) K/mcL Sodium 130 L (136-145) mEq/L Potassium 3.5 (3.5-5.1) mEq/L Chloride 93 L (98-107) mEq/L Carbon Dioxide 14 L (23-29) mEq/L BUN 7 (6-20) mg/dL Creatinine 1.18 (0.70-1.30) mg/dL Est GFR ( Amer) > 60 (> 60) Est GFR (Non-Af Amer) > 60 (> 60) BUN/Creatinine Ratio 6 (6-26) Glucose 99 (70-105) mg/dL Calculated Osmolality 268 L (280-300) Calcium 10.1 (8.6-10.3) mg/dL Total Bilirubin 1.6 H (0.3-1.0) mg/dL AST 30 (13-39) Units/L ALT 22 (7-52) Units/L Alkaline Phosphatase 78 (34-104) Units/L Troponin I < 0.03 (< 0.04) ng/mL Serum Total Protein 8.0 (6.4-8.9) g/dL Albumin 4.5 (3.5-5.7) g/dL Globulin 3.5 (2.4-3.5) g/dL Albumin/Globulin Ratio 1.3 (1.1-2.2) Urine Color (Yellow) Urine Clarity (Clear) Urine pH (5.0-8.0) pH Units Ur Specific [place] (1.010-1.025) Urine Protein (Neg-Trace) mg/dL Urine Glucose (UA) (Normal) mg/dL Urine Ketones (Negative) mg/dL Urine Blood (Negative) Urine Nitrite (Negative) Urine Bilirubin (Negative) Urine Urobilinogen (Normal) mg/dL Ur Leukocyte Esterase (Negative) Ur Culture Indicated? (NO) 01/21/19 Range/Units 16:35 WBC (4.3-11.1) K/mcL RBC (4.19-5.50) M/mcL Hgb (12.9-16.9) g/dL Hct (37.5-50.1) % MCV (83.0-100.0) fL MCH (28.0-33.3) pg MCHC (31.6-35.5) g/dL RDW (11.5-14.5) % Plt Count (140-400) K/mcL MPV (9.4-12.4) fL Immature Gran % (0-4) % Seg Neutrophils % % Lymphocytes % % Monocytes % % Eosinophils % % Basophils % % Neutrophils # (1.6-8.9) K/mcL Lymphocytes # (0.6-4.6) K/mcL Monocytes # (0.0-1.3) K/mcL Eosinophils # (0.0-0.6) K/mcL Basophils # (0.0-0.2) K/mcL Sodium (136-145) mEq/L Potassium (3.5-5.1) mEq/L Chloride (98-107) mEq/L Carbon Dioxide (23-29) mEq/L BUN (6-20) mg/dL Creatinine (0.70-1.30) mg/dL Est GFR ( Amer) (> 60) Est GFR (Non-Af Amer) (> 60) BUN/Creatinine Ratio (6-26) Glucose (70-105) mg/dL Calculated Osmolality (280-300) Calcium (8.6-10.3) mg/dL Total Bilirubin (0.3-1.0) mg/dL AST (13-39) Units/L ALT (7-52) Units/L Alkaline Phosphatase (34-104) Units/L Troponin I (< 0.04) ng/mL Serum Total Protein (6.4-8.9) g/dL Albumin (3.5-5.7) g/dL Globulin (2.4-3.5) g/dL Albumin/Globulin Ratio (1.1-2.2) Urine Color Yellow (Yellow) Urine Clarity Clear (Clear) Urine pH 6.0 (5.0-8.0) pH Units Ur Specific [place] > 1.030 H (1.010-1.025) Urine Protein Negative (Neg-Trace) mg/dL Urine Glucose (UA) Normal (Normal) mg/dL Urine Ketones 15 H (Negative) mg/dL Urine Blood Negative (Negative) Urine Nitrite Negative (Negative) Urine Bilirubin Negative (Negative) Urine Urobilinogen Normal (Normal) mg/dL Ur Leukocyte Esterase Negative (Negative) Ur Culture Indicated? NO (NO) - Radiology Data Radiology results reviewed: Yes I reviewed the patient's radiology results. Chest CTA 01/21/19 15:27 IMPRESSION: No evidence of pulmonary embolism or acute pulmonary abnormality. D/ / Wily Alejandra MD / Wily Alejandra MD Interpreting Provider: Wily Alejandra MD - EKG Data EKG #1 EKG attestation: Yes I reviewed and interpreted this EKG. EKG results narrative: Sinus tachycardia at a rate of 108. [place] interval is 99. QRS duration is 93. QT is 413. QTC is 554. No signs of acute ischemia. Good R-wave progression. No signs of WPW or [place]. No significant change from previous EKG dated 01/20/2019. Attestation Statement - Attestation Attestation: Patient was seen with resident physician. I reviewed the history, physical, assessment and plan, and agree with the findings. I also personally evaluated this patient and had [id number] time with this patient. 48-year-old male presents emergency part chief complaint of abdominal and chest pain. Patient was seen for same couple days ago. He said the findings anything and he was discharged home. He returns today with epigastric discomfort as well as chest pain that seems to be midsternal radiating to the left. He does not really describe particularly well. He does say that he has had nausea and vomiting. He is unable to keep anything down. No fevers or chills. No short of breath. Review systems as above remainder negative. Physical exam vital signs are stable. ENT is unremarkable. Heart regular rhyth m and rate. Lungs clear. Abdomen is soft minimal tenderness in the epigastric area. There is some guarding there is no rigidity. Extremities unremarkable. Neurologically intact moves all extremities. Skin no rashes. Psych histrionic. ED course. Initial EKG was unremarkable. We will do workup for cardiac causes of pain. I will also treat for GI symptoms and will get a CT scan of the chest to rule out PE or other emergent issues that need to be treated. Medication macdonald she was given a GI cocktail Protonix did not completely resolved his symptoms. He was also given some antiemetics. Patient had a negative troponin negative EKG and negative chest CT. I think his pain may be radiating from the abdomen but we cannot completely exclude cardiac. The patient's discomfort continued despite treatment GI cocktail etc. With the radiation of the pain in the chest, was uncomfortable sending the patient home for the second time in less than a week. We will be admitting to the hospital service for additional evaluation and treatment. Hemodynamically he was stable while in the emergency department. ED procedures. I reviewed the patient's EKG as well as the resident physician interpretation and I agree with the findings.
[2019-01-21] MEDS ORDERED: Isovue-370 500 ML BOTTLE IVP ONE ×2 (15:27→18:05)
[2019-01-21] MEDS ORDERED: GI Cocktail 40 ML EACH PO ONE (15:30)
[2019-01-21] MEDS ORDERED: Pantoprazole 40 MG VIAL IVP ONE (15:30)
[2019-01-21 15:56] LABS: Hematocrit 50.4 % (37.5-50.1); Hemoglobin 17.9 g/dL (12.9-16.9); Immature Granulocytes % 0.7 % (0-4); Lymphocytes % 10.5 %; Mean Corpuscular HGB Conc 35.5 g/dL (31.6-35.5); Mean Corpuscular Hemoglobin 31.6 pg (28.0-33.3); Mean Corpuscular Volume 88.9 fL (83.0-100.0); Mean Platelet Volume 9.7 fL (9.4-12.4); Platelet Count 211 K/mcL (140-400); Red Blood Count 5.67 M/mcL (4.19-5.50); Segmented Neutrophils % 80.9 %
[2019-01-21 15:57] LABS: Basophils # 0.1 K/mcL (0.0-0.2); Basophils % 0.7 %; Eosinophils % 0.2 %; Lymphocytes # 1.1 K/mcL (0.6-4.6); Monocytes # 0.7 K/mcL (0.0-1.3); Neutrophils # 8.5 K/mcL (1.6-8.9)
[2019-01-21 16:00] LABS: White Blood Count 10.5 K/mcL (4.3-11.1)
[2019-01-21 16:15] LABS: Alanine Aminotransferase 22 Units/L (7-52); Albumin 4.5 g/dL (3.5-5.7); Albumin/Globulin Ratio 1.3 (1.1-2.2); Alkaline Phosphatase 78 Units/L (34-104); Aspartate Amino Transferase 30 Units/L (13-39); BUN/Creatinine Ratio 6 (6-26); Bilirubin,Total 1.6 mg/dL (0.3-1.0); Blood Urea Nitrogen 7 mg/dL (6-20); Calcium 10.1 mg/dL (8.6-10.3); Carbon Dioxide 14 mEq/L (23-29); Chloride 93 mEq/L (98-107); Globulin 3.5 g/dL (2.4-3.5); Glucose 99 mg/dL (70-105); Osmolality,Calculated 268 (280-300); Potassium 3.5 mEq/L (3.5-5.1); Sodium 130 mEq/L (136-145); eGFR For African Americans > 60 (> 60); eGFR For Non-African Americans > 60 (> 60)
[2019-01-21 16:48] LABS: Bilirubin,Urine Negative (Negative); Blood,Urine Negative (Negative); Clarity,Urine Clear (Clear); Color,Urine Yellow (Yellow); Glucose,Urine (UA) Normal (Normal); Ketones,Urine 15 mg/dL (Negative); Leukocyte Esterase,Urine Negative (Negative); Nitrite,Urine Negative (Negative); Protein,Urine Negative (Neg-Trace); Specific Gravity,Urine > 1.030 (1.010-1.025); Urobilinogen,Urine Normal (Normal)
[2019-01-21] MEDS ORDERED: Aspirin 325 MG TABLET PO ONE (17:42)
--- NOTE | 2019-01-21 18:22 | Internal Med History&Physical ---
Date of Encounter: 01/21/19 Time of Encounter: 18:22 Internal Medicine - H&P: HPI Chief complaint: abdominal pain History of present illness: Mr. Montes De Oca is a 48 year old male with history of gout , HTN complaining of epigastric region radiates up to his left chest associated with some nonbloody nonbilious vomiting today. The patient stated that he is under psychological distress due to his recent separation from his girlfriend and his house being both for foreclosure. The patient visited the ER yesterday and he was diagnose with acid reflux disease. There was a concern about cardiac component howeverCardiac marker first set is normal. ECG has no ST-T changes. at bedside the patient was complaining of severe epigastric pain rotating to his back, which she described as if a knife when 30 his abdomen, he was tachycardiac and diaphoretic, the patient stated that the pain was intermittent over the last several days and usually gets relieved when eat, but now is persistent. CT scan of the abdomen was obtained and pending, the patient was admitted for further evaluation and management. Past Med Surg Social Fam HX - Past Medical History Medical history: GERD, hyperlipidemia, hypertension Additional medical history: Gout, L wrist fracture Psychiatric history: depression - Past Surgical History Surgical History: non-contributory - Social History Smoking Status: Current every day smoker Smokeless Tobacco Status: Yes Alcohol use: heavy Drug use: none - Family History Brother Adopted: No Living Status: Still Living Hx Family Cardiac Disorders: No Hx Family Respiratory Disorders: No Hx Family Cancer: No Hx Family GI Disorders: No Hx Family Endocrine Disorder: No Hx Family Neuromuscular Disorders: No Hx Family Neurologic Disorders: No Hx Family HEENT Disorders: No Hx Family Autoimmune Disorders: No Mother Living Status: Hx Family Cardiac Disorders: Yes ([place]) Hx Family Endocrine Disorder: Yes (DM) Father Living Status: Hx Family Cardiac Disorders: Yes (HTN) Hx Family Endocrine Disorder: Yes (DM) Hx Family Neurologic Disorders: Yes (stroke) Internal Medicine - H&P: Meds Lisinopril [Zestril] 20 mg PO QAM 12/15/17 [History] Trazodone HCl 100 mg PO HS PRN 10/15/18 [History] Omeprazole [PriLOSEC] 40 mg PO DAILY 01/21/19 [History] Pantoprazole Sodium [Protonix] 40 mg PO BID #60 tablet. 01/22/19 [Rx] Indomethacin 50 mg PO TID 01/23/19 [History] Allergy/AdvReac Type Severity Reaction Status Date / Time No Known Allergies Allergy Verified 01/23/19 11:39 All Systems PM: A 10-system review of systems was performed and is negative for pertinent findings except as documented above in the HPI. - Constitutional Vitals: Temp Pulse Resp BP Pulse Ox 97.5 F L 103 28 131/98 95 01/21/19 15:18 01/21/19 18:21 01/21/19 15:18 01/21/19 18:21 01/21/19 18:21 General appearance: Present: A&O X 3 Exam: ` - Head Head exam: Present: atraumatic, normocephalic - Neck Neck exam general surgery: Present: supple, trachea midline. Absent: lymphadenopathy - Respiratory Respiratory exam: Present: CTAB. Absent: accessory muscle use, rales, rhonchi, wheezes - Cardiovascular Cardiovascular exam: Present: RRR, +S1, +S2. Absent: diastolic murmur, gallop, rubs, systolic murmur - GI/Abdominal GI/Abdominal exam: Present: normal bowel sounds, soft, no peritoneal signs. Absent: distended, tenderness - Extremities Exam Extremities exam: Present: warm, radial pulses palpable and symmetrical. Absent: calf tenderness, cyanotic, pedal edema - Neurological Exam Neurological exam: Present: CN II-XII intact, oriented X3, no focal deficits. Absent: pronater drift, facial droop, speech deficit Internal Med - H&P Results - Labs CBC & Chem 7: 01/23/19 03:59 01/23/19 03:59 Labs: Short CBC 01/21/19 Range/Units 15:44 WBC 10.5 D (4.3-11.1) K/mcL Hgb 17.9 H (12.9-16.9) g/dL Hct 50.4 H (37.5-50.1) % Plt Count 211 (140-400) K/mcL Neutrophils # 8.5 (1.6-8.9) K/mcL BMP 01/21/19 15:44 Sodium 130 L Potassium 3.5 Chloride 93 L Carbon Dioxide 14 L BUN 7 Creatinine 1.18 Glucose 99 Calcium 10.1 Cardiac Enzymes 01/21/19 Range/Units 15:44 Troponin I < 0.03 (< 0.04) ng/mL Liver Function 01/21/19 Range/Units 15:44 Total Bilirubin 1.6 H (0.3-1.0) mg/dL AST 30 (13-39) Units/L ALT 22 (7-52) Units/L Alkaline Phosphatase 78 (34-104) Units/L Albumin 4.5 (3.5-5.7) g/dL Urine 01/21/19 Range/Units 16:35 Urine Color Yellow (Yellow) Urine Clarity Clear (Clear) Urine pH 6.0 (5.0-8.0) pH Units Ur Specific [place] > 1.030 H (1.010-1.025) Urine Protein Negative (Neg-Trace) mg/dL Urine Glucose (UA) Normal (Normal) mg/dL - Impressions ITS Impressions Chest CTA 01/21/19 15:27 IMPRESSION: No evidence of pulmonary embolism or acute pulmonary abnormality. D/ / Wily Alejandra MD / Wily Alejandra MD Interpreting Provider: Wily Alejandra MD - Assessment and Plan (1) Abdominal pain Status: Acute Assessment and plan: Epigastric abdominal pain associated with nausea and vomiting, and decreased oral intake. DD *Gastroenteritis *Gastritis *PUD *Pancreatitis *Cholecystitis *Diverticulitis *UTI PLAN: - NPO apart from meds - IVF - Urine C+S - CBCD, BMP in AM - GI consultation is not available over the weekend, I spoke with acute surgery team who kindly agreed to see the patient in consult for possible upper end oscopy. - Zofran (ondansetron) PRN Qualifiers: Abdominal location: epigastric Qualified Code(s): R10.13 - Epigastric pain (2) Nausea & vomiting Status: Acute Assessment and plan: See #1 Qualifiers: Vomiting type: unspecified Vomiting Intractability: intractable Qualified Code(s): R11.2 - Nausea with vomiting, unspecified (3) Chronic hyponatremia Status: Chronic (4) Anxiety Status: Acute Assessment and plan: The patient reports significant stiffness over the last several days due to his recent separation from his girlfriend and his house being with foreclosure, the patient denied suicidal ideation, consider consulting psych for further evaluation and management of depressive disorder and anxiety (5) GERD (gastroesophageal reflux disease) Status: Chronic Assessment and plan: we'll start the patient on proton pump inhibitor, acute surgery see the patient today for a possible upper endoscopy to rule out peptic ulcer disease. Qualifiers: Esophagitis presence: with esophagitis Qualified Code(s): K21.0 - Gastro- esophageal reflux disease with esophagitis (6) Hyperlipidemia Status: Chronic Assessment and plan: we'll continue home medication of pain fasting lipid profile in a.m. Qualifiers: Hyperlipidemia type: mixed hyperlipidemia Qualified Code(s): E78.2 - Mixed hyperlipidemia (7) Hypertension Status: Chronic Assessment and plan: we'll continue home medication and continue to monitor blood pressure while inpatient and adjust regimen as indicated Qualifiers: Hypertension type: essential hypertension Qualified Code(s): I10 - Essential (primary) hypertension (8) DVT prophylaxis Status: Acute (9) Tachycardia Status: Resolved (10) Atypical chest pain Status: Resolved Assessment and plan: The patient has no evidence of EKG changes, and first set of troponin was negative, we will trend cardiac enzymes (11) Alcohol dependence Status: Acute Assessment and plan: we'll start the patient on CIWA protocol with Ativan Qualifiers: Substance use status: other alcohol-induced disorder Qualified Code(s): F10.288 - Alcohol dependence with other alcohol-induced disorder (12) Hyponatremia Status: Acute Assessment and plan: the patient hyponatremia appears to be chronic in nature, could be secondary to excessive Peer consumption, we'll obtain urine lites and urine electrolytes. (13) Metabolic acidosis Status: Resolved Assessment and plan: the patient has rheumatoid acidosis with bicarbonate of 14, there is no evidence of acute kidney disease, the patient denies diarrhea. Hyponatremia and metabolic acidosis are major symptoms of adrenocortical dysfunction. we will consult nephrology for further evaluation and management. - Time Spent With Patient Total time spent is greater than 50% in coordination of care (as documented) at patient's floor/unit and/or counseling patient:
[2019-01-21] MEDS ORDERED: Acetaminophen 325 MG TABLET PO PRN (18:25)
[2019-01-21] MEDS ORDERED: Naloxone 0.4 MG/ML INJ IVP PRN (18:25)
[2019-01-21] MEDS ORDERED: 0.9 % Sodium Chloride 1,000 ML IVC ONE (18:43)
[2019-01-21 19:29] LABS: Creatine Kinase 57 Units/L (30-223)
[2019-01-21 19:30] LABS: Troponin I < 0.03 ng/mL (< 0.04)
[2019-01-21] MEDS ORDERED: *HR* LORazepam 2 MG/ML VIAL IVP PRN ×3 (20:31)
[2019-01-21] MEDS: *HR* HYDROcodone/Acet 5/325 mg TABLET PO PRN (21:24)
[2019-01-21] MEDS: 0.9 % Sodium Chloride 1,000 ML IVC SCH (21:24)
[2019-01-21] MEDS: Thiamine (B-1) 100 MG, Folic Acid 1 MG, MVI, adult with vitamin K 10 ML in 0.9 % Sodi... IVPB SCH (21:40)
[2019-01-21] MEDS: Ondansetron 4 MG/2 ML VIAL IVP PRN (21:40)
[2019-01-21] MEDS: traZODone 50 MG TABLET PO PRN (23:33)
[2019-01-22 01:21] LABS: Basophils # 0.1 K/mcL (0.0-0.2); Basophils % 0.6 %; Eosinophils % 0.4 %; Hematocrit 46.4 % (37.5-50.1); Hemoglobin 16.6 g/dL (12.9-16.9); Immature Granulocytes % 0.5 % (0-4); Lymphocytes # 1.7 K/mcL (0.6-4.6); Lymphocytes % 20.1 %; Mean Corpuscular HGB Conc 35.8 g/dL (31.6-35.5); Mean Corpuscular Hemoglobin 31.9 pg (28.0-33.3); Mean Corpuscular Volume 89.1 fL (83.0-100.0); Mean Platelet Volume 9.9 fL (9.4-12.4); Monocytes # 0.8 K/mcL (0.0-1.3); Monocytes % 9.1 %; Neutrophils # 5.9 K/mcL (1.6-8.9); Platelet Count 177 K/mcL (140-400); Red Blood Count 5.21 M/mcL (4.19-5.50); Red Cell Distribution Width 12.1 % (11.5-14.5); Segmented Neutrophils % 69.3 %; White Blood Count 8.5 K/mcL (4.3-11.1)
[2019-01-22 01:28] LABS: INR 1.1; Prothrombin Time 12.3 Seconds (9.4-12.1)
[2019-01-22 01:31] LABS: Activated Partial Thrombo Time 27.3 Seconds (26.0-36.0)
[2019-01-22 01:40] LABS: Alanine Aminotransferase 19 Units/L (7-52); Albumin 3.6 g/dL (3.5-5.7); Albumin/Globulin Ratio 1.2 (1.1-2.2); Alkaline Phosphatase 57 Units/L (34-104); Aspartate Amino Transferase 23 Units/L (13-39); BUN/Creatinine Ratio 6 (6-26); Bilirubin,Total 1.2 mg/dL (0.3-1.0); Blood Urea Nitrogen 7 mg/dL (6-20); Calcium 8.6 mg/dL (8.6-10.3); Carbon Dioxide 22 mEq/L (23-29); Chloride 98 mEq/L (98-107); Chol/HDL Ratio 2.2 (0-4.9); Cholesterol 112 mg/dL (< 200); Globulin 2.9 g/dL (2.4-3.5); Glucose 102 mg/dL (70-105); HDL Cholesterol 50 mg/dL (40-59); LDL Cholesterol,Calculated 38 mg/dL (0-99); Magnesium 1.9 mg/dL (1.6-2.6); Osmolality,Calculated 268 (280-300); Phosphorous 3.6 mg/dL (2.7-4.5); Potassium 3.4 mEq/L (3.5-5.1); Sodium 130 mEq/L (136-145); Total Protein 6.5 g/dL (6.4-8.9); Triglycerides 122 mg/dL (< 150); eGFR For African Americans > 60 (> 60); eGFR For Non-African Americans > 60 (> 60)
[2019-01-22] MEDS: Pantoprazole 40 MG VIAL IVP SCH ×2 (05:11→18:54)
[2019-01-22] MEDS: 0.9 % Sodium Chloride 1,000 ML IVC SCH (05:12)
[2019-01-22] MEDS: *HR* HYDROcodone/Acet 5/325 mg TABLET PO PRN (10:29)
[2019-01-22] MEDS: Ondansetron 4 MG/2 ML VIAL IVP PRN (10:29)
--- NOTE | 2019-01-22 11:05 | Internal Med Progress Note ---
Hospitalist Progress Note - Encounter Date of Encounter: 01/22/19 Time of Encounter: 08:40 - Subjective Interval History: Patient feels somewhat better but continues to have epigastric pain. Also has nausea. No chest pain or palpitations. No tremors or hallucinations. - Exam Vitals: Temp Pulse Resp BP Pulse Ox 98.0 F 72 16 99/67 97 01/22/19 07:34 01/22/19 07:34 01/22/19 07:34 01/22/19 07:34 01/22/19 07:34 Exam: General: Patient is alert, mild distress, oriented x 3 ENT: Mucous membranes moist Respiratory: Good respiratory effort. Normal breath sounds. No wheezing or crackles. Cardiovascular: Regular rate and rhythm. s1 and s2 normal No clicks, rubs, gallops, or murmurs. No pedal edema Abdomen: Abdomen is soft, patient has epigastric tenderness. Bowel sounds are present Musculoskeletal: Spontaneously moving all extremities Skin: warm, dry, intact. Neuro: Alert oriented x 3 normal cranial nerves, no focal deficits - Assessment and Plan (1) Abdominal pain Current Visit: Yes Status: Acute (2) Nausea & vomiting Current Visit: No Status: Acute (3) Hypertension Current Visit: No Status: Chronic (4) GERD (gastroesophageal reflux disease) Current Visit: No Status: Chronic (5) Hyperlipidemia Current Visit: No Status: Chronic (6) Tachycardia Current Visit: No Status: Acute (7) Alcohol dependence Current Visit: No Status: Acute (8) Anxiety Current Visit: No Status: Acute (9) Chronic hyponatremia Current Visit: No Status: Acute (10) Atypical chest pain Current Visit: Yes Status: Acute (11) Hyponatremia Current Visit: Yes Status: Acute (12) Metabolic acidosis Current Visit: Yes Status: Acute (13) DVT prophylaxis Current Visit: No Status: Acute DVT Prophylaxis: SCDs - Summary of Assessment and Plan Summary of Assessment and Plan: Acute epigastric abdominal pain with associated nausea and vomiting: Concern for gastritis or gastric ulcer. Continue PPI. Consulted surgery and plan for EGD later today. Continue to keep nothing by mouth. Monitor vital signs. Antiemetics as needed. Chronic hyponatremia: Sodium levels are at baseline. We will continue to monitor. Replace potassium as patient also has mild hypokalemia. Essential hypertension: Blood pressure is well controlled. Anxiety disorder: Continue trazodone. DVT prophylaxis with SCDs - Time Spent with Patient Total time spent is greater than 50% in coordination of care (as documented) at patient's floor/unit and/or counseling patient: Internal Medicine: Result - Labs CBC & Chem 7: 01/22/19 00:13 01/22/19 00:13 Labs: Short CBC 01/21/19 01/22/19 Range/Units 15:44 00:13 WBC 10.5 D 8.5 (4.3-11.1) K/mcL Hgb 17.9 H 16.6 (12.9-16.9) g/dL Hct 50.4 H 46.4 (37.5-50.1) % Plt Count 211 177 (140-400) K/mcL Neutrophils # 8.5 5.9 (1.6-8.9) K/mcL BMP 01/21/19 01/22/19 15:44 00:13 Sodium 130 L 130 L Potassium 3.5 3.4 L Chloride 93 L 98 Carbon Dioxide 14 L 22 L BUN 7 7 Creatinine 1.18 1.14 Glucose 99 102 Calcium 10.1 8.6 Cardiac Enzymes 01/21/19 01/21/19 01/22/19 Range/Units 15:44 18:47 00:13 Troponin I < 0.03 < 0.03 < 0.03 (< 0.04) ng/mL 01/22/19 Range/Units 06:30 Troponin I < 0.03 (< 0.04) ng/mL Liver Function 01/21/19 01/22/19 Range/Units 15:44 00:13 Total Bilirubin 1.6 H 1.2 H (0.3-1.0) mg/dL AST 30 23 (13-39) Units/L ALT 22 19 (7-52) Units/L Alkaline Phosphatase 78 57 (34-104) Units/L Albumin 4.5 3.6 (3.5-5.7) g/dL Urine 01/21/19 Range/Units 16:35 Urine Color Yellow (Yellow) Urine Clarity Clear (Clear) Urine pH 6.0 (5.0-8.0) pH Units Ur Specific [place] > 1.030 H (1.010-1.025) Urine Protein Negative (Neg-Trace) mg/dL Urine Glucose (UA) Normal (Normal) mg/dL - ABG Interpretation ABG results: PT/INR, D-dimer PT 12.3 Seconds (9.4-12.1) H 01/22/19 00:13 - Impressions Impressions Chest CTA 01/21/19 15:27 IMPRESSION: No evidence of pulmonary embolism or acute pulmonary abnormality. D/ / Wily Alejandra MD / Wily Alejandra MD Interpreting Provider: Wily Alejandra MD Abdomen CT 01/21/19 18:05 IMPRESSION: No CT evidence of an acute intra-abdominal process. Small hiatal hernia. D/ / Edgardo Whyte / Edgardo Whyte Interpreting Provider: Edgardo Whyte Consult Discharge Plan - Plan Referrals: Robbin Cavanaugh DO [Primary Care Provider] - (Unable to schedule appointment. Please call Wednesday to call hospital follow up appointment for 7-10 days from date of discharge. ) (1) Abdominal pain Qualifiers: Abdominal location: epigastric Qualified Code(s): R10.13 - Epigastric pain (2) Nausea & vomiting Qualifiers: Vomiting type: unspecified Vomiting Intractability: intractable Qualified Code(s): R11.2 - Nausea with vomiting, unspecified (3) Hypertension Qualifiers: Hypertension type: essential hypertension Qualified Code(s): I10 - Essential (primary) hypertension (4) GERD (gastroesophageal reflux disease) Qualifiers: Esophagitis presence: esophagitis presence not specified Qualified Code(s): K21.9 - Gastro-esophageal reflux disease without esophagitis (5) Hyperlipidemia Qualifiers: Hyperlipidemia type: mixed hyperlipidemia Qualified Code(s): E78.2 - Mixed hyperlipidemia (7) Alcohol dependence Qualifiers: Substance use status: alcohol-induced mood disorder Qualified Code(s): F10.24 - Alcohol dependence with alcohol-induced mood disorder
--- NOTE | 2019-01-22 13:52 | AcuteCare Surgery Consult Note ---
Date of Encounter: 01/22/19 Time of Encounter: 13:30 Assessment and Plan (1) Intermittent epigastric abdominal pain Current Visit: Yes Status: Acute Recommend upper endoscopy. Procedure, risk and benefits of upper endoscopy are discussed. Pt understands risks and possible complications. Possible complications include but, are not limited to bleeding, infection or perforation. Pt understands and wishes to proceed as recommended. Consent is obtained. Inpatient upper endoscopy is scheduled. (2) Epigastric pain Current Visit: Yes Status: Acute (3) Hiatal hernia Current Visit: Yes Status: Acute History of Present Illness Consult date: 01/22/19 Reason for consult: abdominal pain Requesting physician: Adina Fontanez History of present illness: This 48 y/o male pt is admitted to [facility] c/o severe epigastric pain. He reports that the pain was severe and unremitting. He reports being seen at the ED the previous day. He was diagnosed with acid reflux and recommended OTC PPI. He t ried the medication and he felt better however, the symptoms recurred almost immediately and worse. He describes low chest pain and indicates to the epigastric area. He reports burning but, denies outright acute or chronic heartburn. He denies reports nausea and vomiting of bilious outcome. He denies hematemesis. He denies melena or hematochezia. Past Med Surg Social Fam HX - Past Medical History Medical history: GERD, hyperlipidemia, hypertension Additional medical history: Gout, L wrist fracture Psychiatric history: depression - Past Surgical History Surgical History: non-contributory - Social History Smoking Status: Never smoker Smokeless Tobacco Status: Yes Alcohol use: heavy Drug use: none - Family History Mother Living Status: Hx Family Cardiac Disorders: Yes ([place]) Hx Family Endocrine Disorder: Yes (DM) Father Living Status: Hx Family Cardiac Disorders: Yes (HTN) Hx Family Endocrine Disorder: Yes (DM) Hx Family Neurologic Disorders: Yes (stroke) Brother Adopted: No Living Status: Still Living Hx Family Cardiac Disorders: No Hx Family Respiratory Disorders: No Hx Family Cancer: No Hx Family GI Disorders: No Hx Family Endocrine Disorder: No Hx Family Neuromuscular Disorders: No Hx Family Neurologic Disorders: No Hx Family HEENT Disorders: No Hx Family Autoimmune Disorders: No Medications and Allergies Lisinopril [Zestril] 20 mg PO QA 12/15/17 [History] Trazodone HCl 100 mg PO HS PRN 10/15/18 [History] Escitalopram [Lexapro] 10 mg PO QAM 11/24/18 [History] Omeprazole [PriLOSEC] 40 mg PO DAILY 01/21/19 [History] Pantoprazole Sodium [Protonix] 40 mg PO BID #60 tablet. 01/22/19 [Rx] Allergy/AdvReac Type Severity Reaction Status Date / Time No Known Allergies Allergy Verified 11/28/18 08:40 Review of Systems All systems PM: The remainder of the systems were reviewed and are negative - Constitutional as per HPI, anorexia, no chills, no daytime sleepiness, no excessive sweating, no fatigue, no fever(s), no headache(s), no weight loss - EENT Nose, mouth and throat: dry mouth, no dizziness, no dysphagia, no nasal congestion, no nasal discharge, no sinus pain, no sinus pressure, no sore throat - Cardiovascular chest pain, no diaphoresis, no dyspnea, no edema - Respiratory no cough, no dyspnea, no hemoptysis, no wheezing - Gastrointestinal abdominal pain, dyspepsia, heartburn, nausea, vomiting, no belching, no bloating, no coffee ground emesis, no constipation, no dysphagia, no hematemesis - Genitourinary no difficulty urinating, no dysuria, no flank pain, no urinary frequency - Musculoskeletal no back pain, no joint swelling, no limited range of motion, no neck pain - Integumentary no dry skin, no pruritus, no rash, no wounds, no jaundice - Neurological no confusion, no dizziness, no focal weakness, no weakness - Psychiatric no anxiety, no depression, no other (EtOH daily) - Endocrine no fatigue - Hematologic/Lymphatic no easy bleeding, no easy bruising General Surgery Exam Initial Vital Signs Temp Pulse Resp BP Pulse Ox 97.5 F L 98 28 132/50 100 01/21/19 15:18 01/21/19 15:18 01/21/19 15:18 01/21/19 15:18 01/21/19 15:18 - General physical appearance well developed, well nourished, no distress. negative: jaundice - Eyes PERRL, normal ocular movement. negative: icteric - ENT no congestion, dry mucosa. negative: nasal discharge - Neck trachea midline, no lymphadectomy, no venous distension - Respiratory normal respiratory effort, clear to auscultation - Cardiovascular Cardiovascular exam: Present: RRR. Absent: JVD - Abdomen Abdomen general surgery: Present: bowel sounds present, soft, tender. Absent: peritoneal Abdominal Tenderness: Present: epigastic - Genitourinary Present: normal penis with no external lesions - Integumentary Integumentary general surgery: Present: warm and dry - Neurologic Present: CN 2-12 grossly intact, normal coordination - Musculoskeletal Present: normal gait, normal posture - Psychiatric Psychiatric general surgery: Present: A&Ox3, appropriate Exam Initial Vital Signs Temp Pulse Resp BP Pulse Ox 97.5 F L 98 28 132/50 100 01/21/19 15:18 01/21/19 15:18 01/21/19 15:18 01/21/19 15:18 01/21/19 15:18 Results - Labs 01/22/19 00:13 01/22/19 00:13 Abnormal lab results RBC 5.67 M/mcL (4.19-5.50) H 01/21/19 15:44 Hgb 17.9 g/dL (12.9-16.9) H 01/21/19 15:44 Hct 50.4 % (37.5-50.1) H 01/21/19 15:44 MCHC 35.8 g/dL (31.6-35.5) H 01/22/19 00:13 PT 12.3 Seconds (9.4-12.1) H 01/22/19 00:13 Sodium 130 mEq/L (136-145) L 01/22/19 00:13 Potassium 3.4 mEq/L (3.5-5.1) L 01/22/19 00:13 Chloride 93 mEq/L (98-107) L 01/21/19 15:44 Carbon Dioxide 22 mEq/L (23-29) L 01/22/19 00:13 POC Glucose 101 mg/dL (70-99) H 01/21/19 20:47 268 (280-300) L 01/22/19 00:13 1.2 mg/dL (0.3-1.0) H 01/22/19 00:13 Ur Specific [place] > 1.030 (1.010-1.025) H 01/21/19 16:35 15 mg/dL (Negative) H 01/21/19 16:35 Diabetes panel 01/21/19 01/22/19 Range/Units 15:44 00:13 Sodium 130 L 130 L (136-145) mEq/L Potassium 3.5 3.4 L (3.5-5.1) mEq/L Chloride 93 L 98 (98-107) mEq/L Carbon Dioxide 14 L 22 L (23-29) mEq/L BUN 7 7 (6-20) mg/dL Creatinine 1.18 1.14 (0.70-1.30) mg/dL Glucose 99 102 (70-105) mg/dL Calcium 10.1 8.6 (8.6-10.3) mg/dL AST 30 23 (13-39) Units/L ALT 22 19 (7-52) Units/L Alkaline Phosphatase 78 57 (34-104) Units/L Albumin 4.5 3.6 (3.5-5.7) g/dL Triglycerides 122 (< 150) mg/dL HDL Cholesterol 50 (40-59) mg/dL Calcium panel 01/21/19 01/22/19 Range/Units 15:44 00:13 Calcium 10.1 8.6 (8.6-10.3) mg/dL Phosphorus 3.6 (2.7-4.5) mg/dL Albumin 4.5 3.6 (3.5-5.7) g/dL Pituitary panel 01/21/19 01/22/19 Range/Units 15:44 00:13 Sodium 130 L 130 L (136-145) mEq/L Potassium 3.5 3.4 L (3.5-5.1) mEq/L Chloride 93 L 98 (98-107) mEq/L Carbon Dioxide 14 L 22 L (23-29) mEq/L BUN 7 7 (6-20) mg/dL Creatinine 1.18 1.14 (0.70-1.30) mg/dL Glucose 99 102 (70-105) mg/dL Calcium 10.1 8.6 (8.6-10.3) mg/dL Adrenal panel 01/21/19 01/22/19 Range/Units 15:44 00:13 Sodium 130 L 130 L (136-145) mEq/L Potassium 3.5 3.4 L (3.5-5.1) mEq/L Chloride 93 L 98 (98-107) mEq/L Carbon Dioxide 14 L 22 L (23-29) mEq/L BUN 7 7 (6-20) mg/dL Creatinine 1.18 1.14 (0.70-1.30) mg/dL Glucose 99 102 (70-105) mg/dL Calcium 10.1 8.6 (8.6-10.3) mg/dL Total Bilirubin 1.6 H 1.2 H (0.3-1.0) mg/dL AST 30 23 (13-39) Units/L ALT 22 19 (7-52) Units/L Alkaline Phosphatase 78 57 (34-104) Units/L Albumin 4.5 3.6 (3.5-5.7) g/dL All other labs normal. - Imaging CT scan - abdomen: image reviewed (+) Consult Discharge Plan - Plan Referrals: Robbin Cavanaugh DO [Primary Care Provider] - (Unable to schedule appointment. Please call Wednesday to call hospital follow up appointment for 7-10 days from date of discharge. ) Prescriptions: Pantoprazole Sodium [Protonix] 40 mg PO BID #60 tablet.
[2019-01-22] MEDS: 0.9 % Sodium Chloride w KCl 20 MEQ/1,000 ML MLS IVC SCH (15:18)
[2019-01-22] MEDS ORDERED: *HR* FentaNYL (PF) 100 MCG/2 ML VIAL ONE (16:02)
[2019-01-22] MEDS ORDERED: *HR* Midazolam HCl 5 MG/5 ML VIAL IVP ONE (16:02)
--- NOTE | 2019-01-22 17:53 | Discharge Summary ---
- NOTES TO OUTPATIENT PROVIDER Notes to Outpatient Provider: Patient diagnosed with reflux esophagitis. Placed on PPI BID. Orders not resulted at time of discharge: Pending orders 01/21/19 15:26 ECG 12 lead ECG [ECG] Stat 01/21/19 18:40 ECG 12 lead ECG [ECG] Stat 01/22/19 04:00 Urinalysis reflex Microscopic [URIN] AM 0400 01/22/19 06:00 ECG 12 lead ECG [ECG] AM 0600 01/22/19 17:25 Surgical Pathology [PTH] Routine 01/23/19 04:00 Basic Metabolic Panel AM 0400 Complete Blood Count [HEME] AM 0400 Date of Encounter: 01/23/19 Time of Encounter: 08:50 - Discharge Diagnosis (1) Abdominal pain Priority: Primary Status: Acute Qualifiers: Abdominal location: epigastric Qualified Code(s): R10.13 - Epigastric pain (2) GERD (gastroesophageal reflux disease) Priority: Secondary Status: Chronic Qualifiers: Esophagitis presence: with esophagitis Qualified Code(s): K21.0 - Gastro- esophageal reflux disease with esophagitis (3) Nausea & vomiting Priority: Secondary Status: Acute Qualifiers: Vomiting type: unspecified Vomiting Intractability: intractable Qualified Code(s): R11.2 - Nausea with vomiting, unspecified (4) Hypertension Priority: Secondary Status: Chronic Qualifiers: Hypertension type: essential hypertension Qualified Code(s): I10 - Essential (primary) hypertension (5) Hyperlipidemia Priority: Secondary Status: Chronic Qualifiers: Hyperlipidemia type: mixed hyperlipidemia Qualified Code(s): E78.2 - Mixed hyperlipidemia (6) Tachycardia Priority: Secondary Status: Resolved (7) Alcohol dependence Priority: Secondary Status: Acute Qualifiers: Substance use status: other alcohol-induced disorder Qualified Code(s): F10.288 - Alcohol dependence with other alcohol-induced disorder (8) Anxiety Priority: Secondary Status: Acute (9) Chronic hyponatremia Priority: Secondary Status: Chronic (10) Atypical chest pain Priority: Secondary Status: Resolved (11) Hyponatremia Priority: Secondary Status: Acute (12) Metabolic acidosis Priority: Secondary Status: Resolved (13) DVT prophylaxis Priority: Secondary Status: Acute Hospital course: Mr. Montes De Oca is a 48 year old male patient with history of gout, hypertension, gastroesophageal reflux disease was hospitalized here after presenting with epigastric pain radiating up into his left chest and associated with nausea and vomiting. He was kept nothing by mouth and treated with PPI given his history of gastroesophageal reflux disease. His troponins were also trended and were found to be negative. His lipase was normal. He was evaluated by surgery and u nderwent upper GI endoscopy yesterday which showed reflux esophagitis. Since then patient patient has continued to receive PPI and his symptoms are improving. He is now tolerating diet and is stable to be discharged home. He will follow up with his primary care provider for further management. He is advised alcohol cessation. - Time Spent with Patient Total time spent providing and/or coordinating discharge services: Time spent: Less than 30 minutes (15 min) - Discharge Medications Prescriptions: New Pantoprazole Sodium [Protonix] 40 mg PO BID #60 tablet. Continued Lisinopril [Zestril] 20 mg PO QAM Trazodone HCl 100 mg PO HS PRN PRN Reason: Sleep Omeprazole [PriLOSEC] 40 mg PO DAILY Discontinued Indomethacin 50 mg PO TID PRN PRN Reason: Gout No Action Indomethacin 50 mg PO TID Home Medications: Lisinopril [Zestril] 20 mg PO QAM 12/15/17 [History] Trazodone HCl 100 mg PO HS PRN 10/15/18 [History] Omeprazole [PriLOSEC] 40 mg PO DAILY 01/21/19 [History] Pantoprazole Sodium [Protonix] 40 mg PO BID #60 tablet. 01/22/19 [Rx] Indomethacin 50 mg PO TID 01/23/19 [History] Allergies/Adverse Reactions: Allergy/AdvReac Type Severity Reaction Status Date / Time No Known Allergies Allergy Verified 01/23/19 11:39 Date of admission: 01/21/19 18:26 Primary care physician: Robbin Cavanaugh DO Consults: 01/22/19 07:27 Consult to Surgery [CONS] Routine Consulting Provider: Acute Care Surgery Reason for Consult: upper endoscopy Time Notified: 07:27 Call Completed: Yes Discharging clinician: Fernando Sharp Anticipated date of discharge: 01/23/19 - Constitutional Vitals: Temp Pulse Resp BP Pulse Ox 98.1 F 74 16 108/70 100 01/22/19 16:16 01/22/19 17:24 01/22/19 17:24 01/22/19 17:24 01/22/19 17:24 General appearance: Present: A&O X 3 Exam: General: Patient is alert, no acute distress, oriented x 3 Respiratory: Good respiratory effort. Normal breath sounds. No wheezing or crackles. Cardiovascular: Regular rate and rhythm. s1 and s2 normal No clicks, rubs, gallops, or murmurs. No pedal edema Abdomen: Abdomen is soft, epigastric tenderness . Bowel sounds are present Musculoskeletal: Spontaneously moving all extremities Skin: warm, dry, intact. Neuro: Alert oriented x 3 normal cranial nerves, no focal deficits - Patient Status Disposition: Home, Self-Care Condition: Good Functional capacity at discharge: independent ambulation Overall status at discharge: patient is progressing back to baseline - Discharge Instructions Follow Up With: Robbin Cavanaugh DO [Primary Care Provider] - 01/25/19 2:30 pm (Appointment will be with Dr. Omer. ) Forms: ED Satisfaction Letter - Diet and Activity Activity: increase activity as tolerated Diet: low fat, low cholesterol, low salt diet
--- NOTE | 2019-01-22 18:24 | Acute Care Surgery Event Note ---
Date of Encounter: 01/22/19 Time of Encounter: 17:50 EGD reveals severe reflux esophagitis. No ulcers or tumors identified but, esophagitis is near ulcerating in nature. Biospies of esophagitis taken. Pt may advance diet to regular as tolerated. Recommend RX PPI BID. F/U prn. Surgery signing off. NB: Due to severe nature of this complicating esophgitis from reflux causing a hospitalization, pt may want to f/u with general surgery outpt to discuss Surgical options for reflux disease. Recommend cessation of daily EtOH.
[2019-01-22] MEDS: Thiamine (B-1) 100 MG, Folic Acid 1 MG, MVI, adult with vitamin K 10 ML in 0.9 % Sodi... IVPB SCH (18:53)
[2019-01-22] MEDS: traZODone 50 MG TABLET PO PRN (22:59)
[2019-01-23 04:47] LABS: Basophils # 0.1 K/mcL (0.0-0.2); Eosinophils # 0.2 K/mcL (0.0-0.6); Eosinophils % 2.5 %; Immature Granulocytes % 0.6 % (0-4); Lymphocytes # 1.9 K/mcL (0.6-4.6); Lymphocytes % 25.8 %; Mean Corpuscular HGB Conc 34.1 g/dL (31.6-35.5); Mean Corpuscular Hemoglobin 31.8 pg (28.0-33.3); Mean Corpuscular Volume 93.4 fL (83.0-100.0); Mean Platelet Volume 9.8 fL (9.4-12.4); Monocytes # 0.7 K/mcL (0.0-1.3); Monocytes % 9.6 %; Neutrophils # 4.4 K/mcL (1.6-8.9); Platelet Count 152 K/mcL (140-400); Red Blood Count 4.71 M/mcL (4.19-5.50); Red Cell Distribution Width 12.1 % (11.5-14.5); Segmented Neutrophils % 60.5 %; White Blood Count 7.2 K/mcL (4.3-11.1)
[2019-01-23 05:05] LABS: BUN/Creatinine Ratio 5 (6-26); Blood Urea Nitrogen 6 mg/dL (6-20); Calcium 8.5 mg/dL (8.6-10.3); Carbon Dioxide 27 mEq/L (23-29); Chloride 104 mEq/L (98-107); Glucose 94 mg/dL (70-105); Osmolality,Calculated 281 (280-300); Potassium 3.9 mEq/L (3.5-5.1); Sodium 137 mEq/L (136-145); eGFR For African Americans > 60 (> 60); eGFR For Non-African Americans > 60 (> 60)
[2019-01-23] MEDS: 0.9 % Sodium Chloride w KCl 20 MEQ/1,000 ML MLS IVC SCH (05:53)
[2019-01-23] MEDS: Pantoprazole 40 MG VIAL IVP SCH (06:29)
[2019-01-23 06:52] VITALS: BP 107/66
[2019-01-23] MEDS ORDERED: Lisinopril 20 MG TABLET PO SCH (09:00)
--- NOTE | 2019-01-23 16:03 | Electrocardiograph Report ---
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
--- NOTE | 2019-01-24 12:08 | Electrocardiograph Report ---
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
--- NOTE | 2019-01-24 12:17 | Electrocardiograph Report ---
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
== END 2019-01-23 13:00 | disposition home or self-care (01) ==
LOC: EMEROOARM 15:15 → 3BNU 15:15
PROVIDERS: ADMIT Internal Medicine Nephrology; ATTEND Internal Medicine Nephrology
PROC: ENDOEBX (2019-01-22 16:30)

== ENCOUNTER 2019-02-02 11:15 | Inpatient (IN) ==
[2019-02-02] MEDS ORDERED: 0.9 % Sodium Chloride 1,000 ML IVC ONE ×2 (11:19→12:03)
[2019-02-02] MEDS ORDERED: Ondansetron 4 MG/2 ML VIAL IVP ONE (11:22)
--- NOTE | 2019-02-02 11:25 | Emergency Department Note ---
Disposition Clinical Impression: TANNER (acute kidney injury), Dehydration, Hyponatremia, Alcoholism, Suicidal ideation Disposition: Admitted As Inpatient Condition: Fair Referrals: NONE,PCP [Primary Care Provider] - Time of Disposition: 13:12 General Adult HPI - General Stated complaint: Dehydration Time Seen by Provider: 02/02/19 11:19 Nursing Notes Reviewed: Yes Vital Signs Reviewed: Yes - Related Data Home Medications Medication Instructions Recorded Confirmed Lisinopril [Zestril] 20 mg PO QAM 12/15/17 02/02/19 Trazodone HCl 100 mg PO HS PRN 10/15/18 02/02/19 Omeprazole [PriLOSEC] 40 mg PO DAILY 01/21/19 02/02/19 Previous Rx's Medication Instructions Recorded Pantoprazole Sodium [Protonix] 40 mg PO BID #60 tablet. 01/22/19 Allergies Allergy/AdvReac Type Severity Reaction Status Date / Time No Known Allergies Allergy Verified 01/23/19 11:39 Past Medical History - Past Medical History Medical history: Reports: GERD, hyperlipidemia, hypertension Surgical history: Reports: non-contributory Psychiatric history: Reports: depression - Social History Smoking Status: Never smoker Smokeless Tobacco Status: Yes Alcohol use: Reports: heavy Drug use: Reports: none Course Vital Signs Temperature 97.7 F 02/02/19 11:20 Pulse Rate 114 02/02/19 11:20 Respiratory Rate 20 02/02/19 11:20 Blood Pressure 94/68 02/02/19 11:20 O2 Sat by Pulse Oximetry 100 02/02/19 11:20 Temperature 97.7 F 02/02/19 11:20 Pulse Rate 94 02/02/19 12:22 Respiratory Rate 18 02/02/19 12:22 Blood Pressure 104/73 02/02/19 12:22 O2 Sat by Pulse Oximetry 100 02/02/19 12:22 Oxygen Delivery Oxygen Delivery Room Air Medical Decision Making - [facility] Narrative Medical decision making narrative: 1244 hours: Patient has acute kidney injury, he also has hyponatremia which she has had before but this is the lowest it has been. We will get a urinary set of electrolytes and we will check ultrasound on the kidneys; consult with nephrology and admit through hospitalist. He currently has normal saline running at this time. 1311 hrs.: Patient relates test that yesterday he tried to commit suicide was sleeping pills. He cannot tell me what they were. He is glad he did not says but were in place him under 72 hour hold and have him seen by psychiatry once he is medically cleared in the hospital. He is in agreement this plan and appreciative. - Lab Data Result diagrams: 02/02/19 11:27 02/02/19 11:27 Lab Results 02/02/19 02/02/19 02/02/19 Range/Units 11:27 11:27 11:43 WBC 15.5 H (4.3-11.1) K/mcL RBC 6.42 H (4.19-5.50) M/mcL Hgb 20.3 H (12.9-16.9) g/dL Hct 57.3 H (37.5-50.1) % MCV 89.3 (83.0-100.0) fL MCH 31.6 (28.0-33.3) pg MCHC 35.4 (31.6-35.5) g/dL RDW 12.8 (11.5-14.5) % Plt Count 339 (140-400) K/mcL MPV 9.7 (9.4-12.4) fL Immature Gran % 0.9 (0-4) % Seg Neutrophils % 78.9 % Lymphocytes % 11.1 % Monocytes % 8.0 % Eosinophils % 0.3 % Basophils % 0.8 % Neutrophils # 12.2 H (1.6-8.9) K/mcL Lymphocytes # 1.7 (0.6-4.6) K/mcL Monocytes # 1.2 (0.0-1.3) K/mcL Eosinophils # 0.0 (0.0-0.6) K/mcL Basophils # 0.1 (0.0-0.2) K/mcL Sodium 124 L (136-145) mEq/L Potassium 3.3 L (3.5-5.1) mEq/L Chloride 85 L (98-107) mEq/L Carbon Dioxide 16 L (23-29) mEq/L BUN 18 (6-20) mg/dL Creatinine 3.46 H (0.70-1.30) mg/dL Est GFR ( Amer) 23 L (> 60) Est GFR (Non-Af Amer) 19 L (> 60) BUN/Creatinine Ratio 5 L (6-26) Glucose 113 H (70-105) mg/dL Calculated Osmolality 261 L (280-300) Calcium 10.5 H (8.6-10.3) mg/dL Magnesium 2.4 (1.6-2.6) mg/dL Troponin I < 0.03 (< 0.04) ng/mL Urine Opiates Screen Negative (Ohinbd=473) ng/mL Ur Buprenorphine Scrn Negative (Cutoff=5) ng/mL Ur Barbiturates Screen Negative (Xquqkd=427) ng/mL Ur Phencyclidine Scrn Negative (Cutoff=25) ng/mL Ur Amphetamines Screen Negative (Zzyglq=4447) ng/mL U Benzodiazepines Scrn Negative (Pjnsjh=829) ng/mL Urine Cocaine Screen Negative (Cutoff= 300) ng/mL U Marijuana (THC) Screen Positive H (Cutoff = 50) ng/mL Ur Drug Screen Interp See Below Ethyl Alcohol < 10 (Less than 10) mg/dL Attestation Statement - Attestation Attestation: This documentation is done with the assistance of Dragon dictation. Despite efforts made to ensure accuracy, there may be inaccuracies in adjunct latin professor or spelling and typographical errors. I examined this patient and my medical decision-making was reviewed with the Resident Physician. I agree with the documented findings, disposition and treatment plan as described except to the extent set forth below. Patient was seen and evaluated by Dr. Akhtar, I agree with their evaluation and management pl an,I supervised the care of the patient's stay. Patient was brought in by EMS today. Patient had been working yesterday and was overheated. Today he said he was not sleeping well has had nausea vomiting diarrhea. He is up and ambulatory. He says he feels like he gets her up he says he feels dry. He was admitted here last week which he believes was due to a hiatal hernia. We will check those records hydrated here check Electrolytes EKG and reassess. He is in agreement with plan. I reviewed the residents documentation and agree with the residents assessment and plan of care. I have personally had face to face time with the patient. (Brief History, Brief Exam, and MDM) I personally supervised and was present for the mcnair/critical portions of the following procedures completed by the resident: EKG was read and interpreted by the ED resident, under my supervision, agree with their interpretation.
--- NOTE | 2019-02-02 11:36 | Emergency Department Note ---
Disposition Clinical Impression: TANNER (acute kidney injury), Dehydration, Hyponatremia, Alcoholism, Suicidal ideation Disposition: Admitted As Inpatient Condition: Undetermined Time of Disposition: 13:58 General Adult HPI - General Stated complaint: Dehydration Time Seen by Provider: 02/02/19 11:19 Source: patient, EMS Mode of arrival: EMS Limitations: no limitations Nursing Notes Reviewed: Yes Vital Signs Reviewed: Yes - History of Present Illness HPI Narrative: Patient is a 48 year old male with a past medical history including hypertension, hyperlipidemia, GERD, gout, alcohol use, states he has not had a drink in 2 weeks, depression, presenting with a chief complaint of vomiting, diarrhea, and concern of dehydration. The patient states he was recently admitted. He had abdominal pain, nausea and vomiting for weeks ago. He also had chest pain. Troponin were negative. He had a upper GI endoscopy that showed reflux esophagitis. Continued his PPI. He was discharged home on January 22. He states for the past 2 days, he complains of nausea, 4 episodes of nonbilious nonbloody emesis, 4 episodes of nonbloody watery diarrhea. He complains of intermittent generalized abdominal cramping especially when he becomes nauseous. 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 He states he all of a sudden got sweaty felt lightheaded and passed out on bubble wrap. He denies hitting his head. He states he was sweating throughout the night. Today he continued to feel unwell and nauseous. He developed right-sided chest pain in addition to the abdominal pain when he is retching. He denies any shortness of breath, cough, fevers or chills. He states his last alcoholic drink was 2 weeks ago. He is concerned she is dehydrated. Her EMS, his heart rate was 130 and sinus. Pain Scale: 8 - Related Data Home Medications Medication Instructions Recorded Confirmed Lisinopril [Zestril] 20 mg PO QAM 12/15/17 02/02/19 Trazodone HCl 100 mg PO HS PRN 10/15/18 02/02/19 Omeprazole [PriLOSEC] 40 mg PO DAILY 01/21/19 02/02/19 Previous Rx's Medication Instructions Recorded Pantoprazole Sodium [Protonix] 40 mg PO BID #60 tablet. 01/22/19 Allergies Allergy/AdvReac Type Severity Reaction Status Date / Time No Known Allergies Allergy Verified 01/23/19 11:39 All systems ED: reviewed and negative except as stated. Review of Systems: As Per HPI Constitutional: Denies: fever, chills ENT ED: Denies: congestion Cardiovascular: Reports: chest pain. Denies: palpitations Respiratory: Denies: cough, dyspnea Gastrointestinal: Reports: abdominal pain, nausea, vomiting, diarrhea. Denies: hematemesis, hematochezia Genitourinary: Denies: dysuria, hematuria Musculoskeletal: Denies: back pain, neck pain Neurological: Denies: headache, weakness, numbness, paresthesias Past Medical History - Past Medical History Attestation: Yes The following information was validated with the patient. Source: patient Medical history: Reports: GERD, hyperlipidemia, hypertension Surgical history: Reports: non-contributory Psychiatric history: Reports: depression - Social History Smoking Status: Never smoker Smokeless Tobacco Status: Yes Alcohol use: Reports: heavy Drug use: Reports: none Physical Exam - General Limitations: no limitations General appearance: alert, in no apparent distress - Head Head exam: atraumatic, normocephalic, normal inspection - Eye Eye exam: Present: normal appearance, PERRL, EOMI - ENT ENT exam: normal exam, normal oropharynx - Neck Neck exam: Present: normal inspection, trachea midline - Chest Chest inspection: Present: normal inspection, symmetric chest wall rise - Respiratory Respiratory exam: Present: normal lung sounds bilaterally. Absent: respiratory distress, wheezes - Cardiovascular Cardiovascular exam: Present: normal rhythm, tachycardia, normal heart sounds, other (bilateral radial pulses equal) - Abdominal Exam Abdominal exam: Present: soft, Non-Tender. Absent: distention, guarding, rebound - Extremities Exam Extremities exam: Present: normal capillary refill. Absent: pedal edema, calf tenderness - Neurological Exam Neurological exam: Present: alert, oriented X3 - Psychiatric Psychiatric exam: Present: normal affect, normal mood - Skin Skin exam: Present: warm, diaphoresis Course Vital Signs Temperature 97.7 F 02/02/19 11:20 Pulse Rate 114 02/02/19 11:20 Respiratory Rate 20 02/02/19 11:20 Blood Pressure 94/68 02/02/19 11:20 O2 Sat by Pulse Oximetry 100 02/02/19 11:20 Temperature 97.7 F 02/02/19 11:20 Pulse Rate 89 02/02/19 13:21 Respiratory Rate 18 02/02/19 13:21 Blood Pressure 115/76 02/02/19 13:21 O2 Sat by Pulse Oximetry 100 02/02/19 13:21 Oxygen Delivery Oxygen Delivery Room Air Medical Decision Making - MDM Narrative Medical decision making narrative: Patient has sinus tachycardia and is nauseous. Blood pressure 94/68. Temperature normal. He will receive 2L IVF bolus and zofran. Will also give thiamine, B12, folate as he may have alcohol withdrawal with history of alcohol dependence and last drink approximately 2 weeks ago. Will also obtian electrolyte, cardiac workup with troponin and EKG. Ethanol and urine tox will also be obtained. 12:45 Lab work reviewed. He does have leukocytosis, appears hemoconcentrated. He has significant history of present illness is likely significantly dehydrated. His chronic hyponatremia however his sodium is 124 which is his lowest. We will obtain urinalysis, urine sodium, creatinine, osmolality. We will also check a CK and lactate. Will obtain renal US. He will require admission for history of present illness significant dehydration. HR is improved to 100-110. 13:10 Reevaluated the patient. His heart rate is in the 80s. He states he is feeling better. The patient now admits that he has been feeling very depressed and hopeless as of lately with everything that has been going on in his life. He states several days ago, he had a suicidal ideation and attempted to commit suicide by taking many sleeping pills. He states he does not know how many he took and states he just slept it off. He states he still continues to have suicidal ideation but does not have a plan at this time. He does want help for this. [place] slip has been signed. He will benefit from psychiatric evaluation. 13:45 CK within normal limits. Urinalysis reviewed. Hospitalist paged for admission. 13:[address] Valladares, hospitalist, who accepts admission. - Medical Records Medical records reviewed: Yes I reviewed the patient's medical records. - Lab Data Lab results reviewed: Yes I reviewed the patient's lab results. Result diagrams: 02/02/19 11:27 02/02/19 11:27 Lab Results 02/02/19 02/02/19 02/02/19 Range/Units 11:27 11:27 11:43 WBC 15.5 H (4.3-11.1) K/mcL RBC 6.42 H (4.19-5.50) M/mcL Hgb 20.3 H (12.9-16.9) g/dL Hct 57.3 H (37.5-50.1) % MCV 89.3 (83.0-100.0) fL MCH 31.6 (28.0-33.3) pg MCHC 35.4 (31.6-35.5) g/dL RDW 12.8 (11.5-14.5) % Plt Count 339 (140-400) K/mcL MPV 9.7 (9.4-12.4) fL Immature Gran % 0.9 (0-4) % Seg Neutrophils % 78.9 % Lymphocytes % 11.1 % Monocytes % 8.0 % Eosinophils % 0.3 % Basophils % 0.8 % Neutrophils # 12.2 H (1.6-8.9) K/mcL Lymphocytes # 1.7 (0.6-4.6) K/mcL Monocytes # 1.2 (0.0-1.3) K/mcL Eosinophils # 0.0 (0.0-0.6) K/mcL Basophils # 0.1 (0.0-0.2) K/mcL Sodium 124 L (136-145) mEq/L Potassium 3.3 L (3.5-5.1) mEq/L Chloride 85 L (98-107) mEq/L Carbon Dioxide 16 L (23-29) mEq/L BUN 18 (6-20) mg/dL Creatinine 3.46 H (0.70-1.30) mg/dL Est GFR ( Amer) 23 L (> 60) Est GFR (Non-Af Amer) 19 L (> 60) BUN/Creatinine Ratio 5 L (6-26) Glucose 113 H (70-105) mg/dL Calculated Osmolality 261 L (280-300) Lactic Acid (0.5-2.2) mmol/L Calcium 10.5 H (8.6-10.3) mg/dL Magnesium 2.4 (1.6-2.6) mg/dL Total Bilirubin (0.3-1.0) mg/dL Direct Bilirubin (0.0-0.2) mg/dL Indirect Bilirubin (0.0-1.2) mg/dL AST (13-39) Units/L ALT (7-52) Units/L Alkaline Phosphatase (34-104) Units/L Creatine Kinase (30-223) Units/L Troponin I < 0.03 (< 0.04) ng/mL Serum Total Protein (6.4-8.9) g/dL Albumin (3.5-5.7) g/dL Globulin (2.4-3.5) g/dL Albumin/Globulin Ratio (1.1-2.2) Urine Color (Yellow) Urine Clarity (Clear) Urine pH (5.0-8.0) pH Units Ur Specific [place] (1.010-1.025) Urine Protein (Neg-Trace) mg/dL Urine Glucose (UA) (Normal) mg/dL Urine Ketones (Negative) mg/dL Urine Blood (Negative) Urine Nitrite (Negative) Urine Bilirubin (Negative) Urine Urobilinogen (Normal) mg/dL Ur Leukocyte Esterase (Negative) Urine Microscopic RBC (0-3) per hpf Urine Microscopic WBC (0-3) per hpf Ur Squamous Epith Cells (None-Few) per lpf Urine Bacteria (None-Few) per hpf Hyaline Casts (None-Few) per lpf Ur Culture Indicated? (NO) Salicylates (15.0-30.0) mg/dL Urine Opiates Screen Negative (Bscivb=711) ng/mL Ur Buprenorphine Scrn Negative (Cutoff=5) ng/mL Acetaminophen (10-20) mcg/mL Ur Barbiturates Screen Negative (Rcexeu=544) ng/mL Ur Phencyclidine Scrn Negative (Cutoff=25) ng/mL Ur Amphetamines Screen Negative (Gbwabn=4197) ng/mL U Benzodiazepines Scrn Negative (Umquts=080) ng/mL Urine Cocaine Screen Negative (Cutoff= 300) ng/mL U Marijuana (THC) Screen Positive H (Cutoff = 50) ng/mL Ur Drug Screen Interp See Below Ethyl Alcohol < 10 (Less than 10) mg/dL 02/02/19 02/02/19 02/02/19 Range/Units 11:43 13:03 13:03 WBC (4.3-11.1) K/mcL RBC (4.19-5.50) M/mcL Hgb (12.9-16.9) g/dL Hct (37.5-50.1) % MCV (83.0-100.0) fL MCH (28.0-33.3) pg MCHC (31.6-35.5) g/dL RDW (11.5-14.5) % Plt Count (140-400) K/mcL MPV (9.4-12.4) fL Immature Gran % (0-4) % Seg Neutrophils % % Lymphocytes % % Monocytes % % Eosinophils % % Basophils % % Neutrophils # (1.6-8.9) K/mcL Lymphocytes # (0.6-4.6) K/mcL Monocytes # (0.0-1.3) K/mcL Eosinophils # (0.0-0.6) K/mcL Basophils # (0.0-0.2) K/mcL Sodium (136-145) mEq/L Potassium (3.5-5.1) mEq/L Chloride (98-107) mEq/L Carbon Dioxide (23-29) mEq/L BUN (6-20) mg/dL Creatinine (0.70-1.30) mg/dL Est GFR ( Amer) (> 60) Est GFR (Non-Af Amer) (> 60) BUN/Creatinine Ratio (6-26) Glucose (70-105) mg/dL Calculated Osmolality (280-300) Lactic Acid 1.5 (0.5-2.2) mmol/L Calcium (8.6-10.3) mg/dL Magnesium (1.6-2.6) mg/dL Total Bilirubin 2.0 H (0.3-1.0) mg/dL Direct Bilirubin 0.6 H (0.0-0.2) mg/dL Indirect Bilirubin 1.4 H (0.0-1.2) mg/dL AST 25 (13-39) Units/L ALT 15 (7-52) Units/L Alkaline Phosphatase 56 (34-104) Units/L Creatine Kinase 161 (30-223) Units/L Troponin I (< 0.04) ng/mL Serum Total Protein 7.2 (6.4-8.9) g/dL Albumin 4.0 (3.5-5.7) g/dL Globulin 3.2 (2.4-3.5) g/dL Albumin/Globulin Ratio 1.3 (1.1-2.2) Urine Color Dark Yellow (Yellow) Urine Clarity Clear (Clear) Urine pH 5.0 (5.0-8.0) pH Units Ur Specific [place] 1.024 (1.010-1.025) Urine Protein 100 H (Neg-Trace) mg/dL Urine Glucose (UA) Normal (Normal) mg/dL Urine Ketones Trace H (Negative) mg/dL Urine Blood Negative (Negative) Urine Nitrite Negative (Negative) Urine Bilirubin Moderate H (Negative) Urine Urobilinogen Normal (Normal) mg/dL Ur Leukocyte Esterase Negative (Negative) Urine Microscopic RBC 5-15 H (0-3) per hpf Urine Microscopic WBC 3-5 H (0-3) per hpf Ur Squamous Epith Cells Many H (None-Few) per lpf Urine Bacteria None Seen (None-Few) per hpf Hyaline Casts Moderate H (None-Few) per lpf Ur Culture Indicated? NO (NO) Salicylates < 2.5 L (15.0-30.0) mg/dL Urine Opiates Screen (Javfqz=648) ng/mL Ur Buprenorphine Scrn (Cutoff=5) ng/mL Acetaminophen < 10 L (10-20) mcg/mL Ur Barbiturates Screen ([place]=844) ng/mL Ur Phencyclidine Scrn (Cutoff=25) ng/mL Ur Amphetamines Screen (Fpkqzr=2511) ng/mL U Benzodiazepines Scrn (Stamlu=483) ng/mL Urine Cocaine Screen (Cutoff= 300) ng/mL U Marijuana (THC) Screen (Cutoff = 50) ng/mL Ur Drug Screen Interp Ethyl Alcohol (Less than 10) mg/dL - Radiology Data Radiology results reviewed: Yes I reviewed the patient's radiology results. Chest X-Ray 02/02/19 11:21 IMPRESSION: No acute cardiopulmonary abnormality. D/ / Ton Cleaning MD / Ton Cleaning MD Interpreting Provider: Ton Cleaning MD - EKG Data EKG #1 EKG attestation: Yes I reviewed and interpreted this EKG. EKG results narrative: EKG obtained at 11:27 shows sinus tachycardia with heart rate 110, IN interval 116, qrsd 88, qqtc 517, probable left atrial enlargement, no ST elevation or depression, no evidence of WPW or brugada, compared to old EKG on 01/22/2019 which shows no new changes.
[2019-02-02] MEDS ORDERED: Thiamine (B-1) 100 MG in D5% in Water 50 ML IVPB STA (11:51)
[2019-02-02 12:06] LABS: Basophils # 0.1 K/mcL (0.0-0.2); Basophils % 0.8 %; Eosinophils % 0.3 %; Hemoglobin 20.3 g/dL (12.9-16.9); Immature Granulocytes % 0.9 % (0-4); Lymphocytes # 1.7 K/mcL (0.6-4.6); Lymphocytes % 11.1 %; Mean Corpuscular HGB Conc 35.4 g/dL (31.6-35.5); Mean Corpuscular Hemoglobin 31.6 pg (28.0-33.3); Mean Corpuscular Volume 89.3 fL (83.0-100.0); Mean Platelet Volume 9.7 fL (9.4-12.4); Monocytes # 1.2 K/mcL (0.0-1.3); Neutrophils # 12.2 K/mcL (1.6-8.9); Platelet Count 339 K/mcL (140-400); Red Blood Count 6.42 M/mcL (4.19-5.50); Red Cell Distribution Width 12.8 % (11.5-14.5); Segmented Neutrophils % 78.9 %; White Blood Count 15.5 K/mcL (4.3-11.1)
[2019-02-02 12:12] LABS: Hematocrit 57.3 % (37.5-50.1)
[2019-02-02 12:20] LABS: Amphetamine Screen,Urine Negative ng/mL (Cutoff=1000); Barbiturate Screen,Urine Negative ng/mL (Cutoff=200); Benzodiazepines Screen,Urine Negative ng/mL (Cutoff=200); Cannabinoid Screen,Urine Positive ng/mL (Cutoff = 50); Cocaine Screen,Urine Negative ng/mL (Cutoff= 300); Opiate Screen,Urine Negative ng/mL (Cutoff=300); Phencyclidine Screen,Urine Negative ng/mL (Cutoff=25)
[2019-02-02 12:27] LABS: BUN/Creatinine Ratio 5 (6-26); Blood Urea Nitrogen 18 mg/dL (6-20); Calcium 10.5 mg/dL (8.6-10.3); Carbon Dioxide 16 mEq/L (23-29); Chloride 85 mEq/L (98-107); Ethanol < 10 mg/dL (Less than 10); Glucose 113 mg/dL (70-105); Magnesium 2.4 mg/dL (1.6-2.6); Osmolality,Calculated 261 (280-300); Potassium 3.3 mEq/L (3.5-5.1); Sodium 124 mEq/L (136-145); Troponin I < 0.03 ng/mL (< 0.04); eGFR For African Americans 23 (> 60); eGFR For Non-African Americans 19 (> 60)
[2019-02-02] MEDS: Folic Acid 1 MG TABLET PO SCH (12:37)
[2019-02-02] MEDS: Cyanocobalamin (B-12) 1,000 MCG TABLET PO SCH (12:37)
--- NOTE | 2019-02-02 12:43 | Electrocardiograph Report ---
[address] [place], [place] [address] Test Date: 2019-02-02 Pat Name: Lalo Montes De Oca Department: [id number] Room: Gender: M Biometrics Consultant: : 1970 Requested By: Rigo Carvalho Order Number: [id number] Reading MD: Nori Carter Measurements Intervals [place] Rate: 110 P: 73 NE: 116 QRS: 71 QRSD: 88 T: 62 QT: 382 QTc: 517 Interpretive Statements Sinus tachycardia Probable left atrial enlargement Electronically Signed On 02-02-2019 12:41:43 EDT by Nori Carter
[2019-02-02 13:24] LABS: Bacteria,Urine None Seen per hpf (None-Few); Bilirubin,Urine Moderate (Negative); Blood,Urine Negative (Negative); Color,Urine Dark Yellow (Yellow); Glucose,Urine (UA) Normal (Normal); Ketones,Urine Trace mg/dL (Negative); Leukocyte Esterase,Urine Negative (Negative); Nitrite,Urine Negative (Negative); Protein,Urine 100 mg/dL (Neg-Trace); Specific Gravity,Urine 1.024 (1.010-1.025); Squamous Epithelial Cell,Urine Many per lpf (None-Few); Urobilinogen,Urine Normal (Normal)
[2019-02-02 13:25] LABS: Clarity,Urine Clear (Clear)
[2019-02-02 13:33] LABS: Hyaline Casts,Urine Moderate per lpf (None-Few)
[2019-02-02 13:42] LABS: Acetaminophen < 10 mcg/mL (10-20); Alanine Aminotransferase 15 Units/L (7-52); Albumin/Globulin Ratio 1.3 (1.1-2.2); Alkaline Phosphatase 56 Units/L (34-104); Aspartate Amino Transferase 25 Units/L (13-39); Bilirubin,Direct 0.6 mg/dL (0.0-0.2); Bilirubin,Indirect 1.4 mg/dL (0.0-1.2); Creatine Kinase 161 Units/L (30-223); Globulin 3.2 g/dL (2.4-3.5); Salicylate < 2.5 mg/dL (15.0-30.0); Total Protein 7.2 g/dL (6.4-8.9)
[2019-02-02] MEDS ORDERED: Ondansetron 4 MG/2 ML VIAL IVP PRN (14:17)
[2019-02-02] MEDS ORDERED: Naloxone 0.4 MG/ML INJ IVP PRN (14:17)
[2019-02-02 14:25] LABS: Sodium, Urine 18.2 mEq/L
--- NOTE | 2019-02-02 14:38 | Internal Med History&Physical ---
Date of Encounter: 02/02/19 Time of Encounter: 14:00 Internal Medicine - H&P: HPI Chief complaint: Nausea, vomiting, suicidal ideation Admitted From: Emergency Dept Plans for Post Hospital Care: Home History of present illness: Mr. Montes De Oca is a 48 year old male with a past medical history of depression and suicidal ideation roughly 2 weeks ago with overdose on trazodone who comes in with nausea, vomiting, inability to keep anything down for the last 3 days and feeling overall weak. He also is very tearful and cried multiple times during the interview. The patient has a history of hiatal hernia and was diagnosed wit h esophagitis on endoscopy done in the end of December this year and was supposed to be on twice a day Protonix. He did tell me that he has missed several doses of this due to his stressful situation but has not resorted to drinking the way he was before he presented in that visit. He does have a history of chronic alcoholism but has been "clean" for the last 10-14 days. 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 He states that he has progressively gotten very weak and at one point he almost passed out and had to take off from work. In the last 48 hours he started throwing up anytime he would attempt to eat or drink anything. He did state that the one medication he never misses is his lisinopril which he has consistently been taking Currently the patient is very anxious with a flushed face and appears teary eyed. He does admit to me that he still thinks of hurting himself especially "there is nothing else better to do when you are all alone at home and there is no one to talk to" In the ER the patient was found to have acute renal failure, tachycardia, leukocytosis and he was given IV fluid boluses, he was also placed on a pink slip and psychiatry has been consulted for suicidal ideation. Off note, the patient also mentioned to me that for the last 48 hours he has been feeling dizzy when he stands up too quickly from a sitting position. Past Med Surg Social Fam HX - Past Medical History Medical history: GERD, hyperlipidemia, hypertension Additional medical history: Gout, L wrist fracture Psychiatric history: depression - Past Surgical History Surgical History: non-contributory - Social History Smoking Status: Never smoker Smokeless Tobacco Status: Yes Alcohol use: heavy Drug use: none - Family History Brother Adopted: No Living Status: Still Living Hx Family Cardiac Disorders: No Hx Family Respiratory Disorders: No Hx Family Cancer: No Hx Family GI Disorders: No Hx Family Endocrine Disorder: No Hx Family Neuromuscular Disorders: No Hx Family Neurologic Disorders: No Hx Family HEENT Disorders: No Hx Family Autoimmune Disorders: No Mother Living Status: Hx Family Cardiac Disorders: Yes (OR) Hx Family Endocrine Disorder: Yes (DM) Father Living Status: Hx Family Cardiac Disorders: Yes (HTN) Hx Family Endocrine Disorder: Yes (DM) Hx Family Neurologic Disorders: Yes (stroke) Internal Medicine - H&P: Meds Lisinopril [Zestril] 20 mg PO QAM 12/15/17 [History] Trazodone HCl 100 mg PO HS PRN 10/15/18 [History] Omeprazole [PriLOSEC] 40 mg PO DAILY 01/21/19 [History] Pantoprazole Sodium [Protonix] 40 mg PO BID #60 tablet. 01/22/19 [Rx] Allergy/AdvReac Type Severity Reaction Status Date / Time No Known Allergies Allergy Verified 01/23/19 11:39 All Systems PM: A 10-system review of systems was performed and is negative for pertinent findings except as documented above in the HPI. - Constitutional Vitals: Temp Pulse Resp BP Pulse Ox 97.7 F 89 18 115/76 100 02/02/19 11:20 02/02/19 13:21 02/02/19 13:21 02/02/19 13:21 02/02/19 13:21 Exam: GENERAL: Alert, anxious, cooperative, extremely teary eyed during interview EYES: PERRLA, EOMI him a flushed face EARS: External ears normal, canals clear OROPHARYNX: Dry mucous membranes. NECK: No jugulovenous distention, No carotid bruits, Carotid pulse normal contour, Supple LUNGS: Lungs clear to auscultation, Good diaphragmatic excursion CARDIAC: Tachycardia; no rubs, murmurs, or gallops ABDOMEN: Abdomen soft, non-tender, BS normal, No masses or organomegaly EXTREMITIES: Extremities normal, no deformities, edema, clubbing or skin discoloration. Good capillary refill., No ulcers NEURO: Gait not tested. Reflexes normal and symmetric. Sensation grossly intact, Cranial nerves II-XII intact PULSES: 2+ radial, 2+ carotid Rest of the exam is non contributory Internal Med - H&P Results - Labs CBC & Chem 7: 02/02/19 11:27 02/02/19 11:27 Labs: Short CBC 02/02/19 Range/Units 11:27 WBC 15.5 H (4.3-11.1) K/mcL Hgb 20.3 H (12.9-16.9) g/dL Hct 57.3 H (37.5-50.1) % Plt Count 339 (140-400) K/mcL Neutrophils # 12.2 H (1.6-8.9) K/mcL BMP 02/02/19 11:27 Sodium 124 L Potassium 3.3 L Chloride 85 L Carbon Dioxide 16 L BUN 18 Creatinine 3.46 H Glucose 113 H Calcium 10.5 H Cardiac Enzymes 02/02/19 Range/Units 11:27 Troponin I < 0.03 (< 0.04) ng/mL Liver Function 02/02/19 Range/Units 13:03 Total Bilirubin 2.0 H (0.3-1.0) mg/dL Direct Bilirubin 0.6 H (0.0-0.2) mg/dL AST 25 (13-39) Units/L ALT 15 (7-52) Units/L Alkaline Phosphatase 56 (34-104) Units/L Albumin 4.0 (3.5-5.7) g/dL Urine 02/02/19 Range/Units 11:43 Urine Color Dark Yellow (Yellow) Urine Clarity Clear (Clear) Urine pH 5.0 (5.0-8.0) pH Units Ur Specific [place] 1.024 (1.010-1.025) Urine Protein 100 H (Neg-Trace) mg/dL Urine Glucose (UA) Normal (Normal) mg/dL - EKG Data -: EKG Interpreted by Myself Rate: tachycardia - EKG Data Prior EKG available for review: yes When compared to previous EKG: there is no significant change - Impressions ITS Impressions Chest X-Ray 02/02/19 11:21 IMPRESSION: No acute cardiopulmonary abnormality. D/ / Ton Cleaning MD / Ton Cleaning MD Interpreting Provider: Ton Cleaning MD - Diagnostic Studies Chest x-ray Status: image reviewed by me (No focal areas of consolidation) - Assessment and Plan (1) Acute renal failure Current Visit: Yes Status: Acute Assessment and plan: In the setting of continued lisinopril use, decreased oral intake most likely because of nausea and vomiting as well as working and intense heat. This overall points to a prerenal etiology of acute renal failure. Patient's baseline creatinine is close to 1 and currently he is at 3.46 which is more than 3 times elevated A renal ultrasound has been ordered by the emergency room and will be pending but I strongly believe that historically this is pointing towards prerenal etiology and I would continue aggressive hydration He has already received 2 L of fluid in the ER and I will continue to give him 150 mL an hour for another 2 bags Check BMP in the morning and follow creatinine closely. If his creatinine does not resolve, consider nephrology input We will also hold lisinopril at this point because his blood pressure is stable and resume slowly once creatinine improves and blood pressure allows Qualifiers: Acute renal failure type: unspecified Qualified Code(s): N17.9 - Acute kidney failure, unspecified (2) Intractable nausea and vomiting Current Visit: Yes Status: Acute Assessment and plan: Unclear etiology Patient has a known history of gastritis and was supposed to be on twice a day Protonix He is not the best historian but does tell me that he takes Protonix in addition to Prilosec and that he does not miss any doses which I am not very sure of. Regardless for now I will put him on Zofran as needed and gradually try to introduce a diet as tolerated. I will also continue twice a day PPI while in-house Consider gastroenterology consult if his nausea and vomiting does not improve within 24 hours. Qualifiers: Vomiting type: unspecified Qualified Code(s): R11.2 - Nausea with vomiting, unspecified (3) GERD (gastroesophageal reflux disease) Current Visit: No Status: Chronic Assessment and plan: Chronic history of GERD In the setting of hiatal hernia recent EGD shows hiatal hernia along with esophagitis for which twice a day PPI was prescribed although unclear at this point whether he was appropriately taking it or not. Continue oral PPI while in-house and consider gastroenterology consult if this worsens Qualifiers: Esophagitis presence: with esophagitis Qualified Code(s): K21.0 - Gastro- esophageal reflux disease with esophagitis (4) Leukocytosis Current Visit: Yes Status: Acute Assessment and plan: Most likely appears to be hemoconcentration as there is no other source. Monitor vital signs closely, repeat labs in the morning and tailor plan accordingly Qualifiers: Leukocytosis type: unspecified Qualified Code(s): D72.829 - Elevated white blood cell count, unspecified (5) Suicidal ideation Current Visit: Yes Status: Acute Assessment and plan: Patient states he is extremely depressed with his social situation and does feel like ending his life as he has tried once in the past by overdosing on trazodone Topics it has been initiated as per the ER resident and I have personally contacted psychiatry for a consultation. He still has medical issues that he will need to be cleared from before we placed on inpatient psychiatry service (6) Alcohol dependence Current Visit: No Status: Acute Assessment and plan: Chronic alcohol abuse although he states that he has not been drinking for the last 1-1/2-2 weeks. Today his drug screen does show negative alcohol but is positive for THC Continue to closely monitor and will consult social work faculty member to help with his home situation and also history of alcohol dependence. Qualifiers: Substance use status: other alcohol-induced disorder Qualified Code(s): F10.288 - Alcohol dependence with other alcohol-induced disorder - Time Spent With Patient Total time spent is greater than 50% in coordination of care (as documented) at patient's floor/unit and/or counseling patient:
[2019-02-02] MEDS: *HR* Heparin 5,000 UNIT/ML VIAL SQ SCH (18:32)
[2019-02-02] MEDS: 0.9 % Sodium Chloride 1,000 ML IVC SCH (18:36)
[2019-02-03] MEDS: 0.9 % Sodium Chloride 1,000 ML IVC SCH (01:16)
[2019-02-03 05:24] LABS: Basophils # 0.1 K/mcL (0.0-0.2); Basophils % 0.6 %; Eosinophils # 0.1 K/mcL (0.0-0.6); Eosinophils % 1.6 %; Hematocrit 44.7 % (37.5-50.1); Immature Granulocytes % 0.9 % (0-4); Lymphocytes # 1.5 K/mcL (0.6-4.6); Lymphocytes % 19.1 %; Mean Corpuscular HGB Conc 34.9 g/dL (31.6-35.5); Mean Corpuscular Hemoglobin 32.5 pg (28.0-33.3); Mean Corpuscular Volume 93.1 fL (83.0-100.0); Mean Platelet Volume 9.4 fL (9.4-12.4); Neutrophils # 5.3 K/mcL (1.6-8.9); Platelet Count 163 K/mcL (140-400); Red Cell Distribution Width 12.7 % (11.5-14.5); Segmented Neutrophils % 65.8 %
[2019-02-03 05:35] LABS: Hemoglobin 15.6 g/dL (12.9-16.9)
[2019-02-03] MEDS: *HR* Heparin 5,000 UNIT/ML VIAL SQ SCH ×2 (05:35→16:35)
[2019-02-03 05:43] LABS: Calcium 8.4 mg/dL (8.6-10.3); Potassium 3.6 mEq/L (3.5-5.1)
[2019-02-03] MEDS: Cyanocobalamin (B-12) 1,000 MCG TABLET PO SCH (12:24)
[2019-02-03] MEDS: Folic Acid 1 MG TABLET PO SCH (12:24)
--- NOTE | 2019-02-03 12:33 | Consult Note ---
Date of Encounter: 02/04/19 Time of Encounter: 10:30 Assessment & Recommendation (1) Depression Current visit: Yes Status: Acute Assessment & Recommendation: Will accept patient for inpatient psychiatric care on 1A once patient is medically stable. Recommend continuing sitter until transferred to the inpatient psychiatric unit. From the psychiatric perspective patient needs to remain [place] at this time. Qualifiers: Depression Type: major depressive disorder Major depression recurrence: recurrent Active/Remission status: currently active Psychotic features: without psychotic features Qualified Code(s): F33.2 - Major depressive disorder, recurrent severe without psychotic features History of Present Illness Requesting Physician: Luis Enrique Valladares Reason for consult: Suicidal Ideation History of present illness: Mr. Montes De Oca is a 48 year old male admitted for nausea, vomitting and acute renal failure. On interview today client admits to recent suicide attempt approximately 2 weeks ago. He states he attempted to overdose on his trazodone but ended up "sleeping for 2 days then going back to work." He denies seeking help at this time stating "I wasn't going to call an ambulance" and "I didn't want to lose my job." He admits to previous episodes of depression in the past but denies previous suicide attempts. He states that in the past 2 years he has lost his marriage, his home, his career, and his dogs. He was tearful throughout the interview and admitted to suicidal ideation. He denies having a specific plan but does state "I have no reason left to live" and "I'll probably just go find a bridge." He admits to suicidal ideation in the past but states "I always denied it when anyone asked so I wouldn't get admitted." The only previous antidepressant he can recall taking is Lexapro which he denies noticing any benefit from. He does not have an outpatient psychiatrist and is interested in getting established with outpatient mental health. He denies AH, VH or HI. He does admit to excessive alcohol consumption in the past but states he stopped "2 weeks ago." He denies any other illicit drug use including: heroin, cocaine, methamphetamine or marijuana. He denies having any social support in the area but does admit "my ex has been helping me some." CC: Luis Enrique Valladares Past Med Surg Social Fam HX - Past Medical History Medical history: GERD, hyperlipidemia, hypertension - Past Psychiatric History Psychiatric history: Reports: depression, prior suicide attempt Past psychiatric history details: Patient was admitted to for depression, suicidal ideation and alcohol misuse in November of this year. Brief chart review reveals he was endorsing suicidal ideation at that time without plan. Family psychiatric history: Unknown Family History of Suicide: Unknown - Past Surgical History Surgical History: no surgical history - Social History Smoking Status: Never smoker Smokeless Tobacco Status: Yes Alcohol use: heavy Drug use: marijuana - Family History Mother Living Status: Hx Family Cardiac Disorders: Yes (MA) Hx Family Endocrine Disorder: Yes (DM) Father Living Status: Hx Family Cardiac Disorders: Yes (HTN) Hx Family Endocrine Disorder: Yes (DM) Hx Family Neurologic Disorders: Yes (stroke) Brother Adopted: No Living Status: Still Living Hx Family Cardiac Disorders: No Hx Family Respiratory Disorders: No Hx Family Cancer: No Hx Family GI Disorders: No Hx Family Endocrine Disorder: No Hx Family Neuromuscular Disorders: No Hx Family Neurologic Disorders: No Hx Family HEENT Disorders: No Hx Family Autoimmune Disorders: No Medications & Allergies Lisinopril [Zestril] 20 mg PO QAM 12/15/17 [History] Trazodone HCl 100 mg PO HS PRN 10/15/18 [History] Pantoprazole Sodium [Protonix] 40 mg PO BID #60 tablet. 01/22/19 [Rx] Allergy/AdvReac Type Severity Reaction Status Date / Time No Known Allergies Allergy Verified 02/03/19 18:20 Review of Systems Psychiatric: Reports: depression, abnormal sleep pattern, suicidal ideation, anhedonia, hopelessness. Denies: homicidal ideation, auditory hallucinations, visual hallucinations, confusion, memory loss Psychiatry Exam - Constitutional Vitals: Temp Pulse Resp BP Pulse Ox 98.1 F 82 14 108/76 99 02/03/19 11:00 02/03/19 11:00 02/03/19 11:00 02/03/19 11:00 02/03/19 11:00 General appearance: age & developmentally appropriate, well-nourished - Musculoskeletal Station: relaxed Strength & Tone: normal for patient - Psychiatric Patient Orientation: Yes Person, Yes Time, Yes Place, Yes Circumstance Level of alertness: Alert Behavior: cooperative, tearful, talkative Psychomotor activity: Normal Eye Contact: Diverts Contact Mood Description: Depressed Patient description of mood: "I have to admit it, I'm depressed" Affect description: congruent with mood, constricted, tearful Speech Volume: Normal Speech pattern: normal rate, normal rhythm, normal tone, appropriate, clear Language & Vocabulary: consistent with education Thought Process: Intact, Logical, Linear, Goal Oriented Thought Content: Yes Intact, Yes Suicidal ideation, No Homicidal ideation, No Overt delusions, No Paranoid delusion Perceptual Disturbances: No Reacting to internal stimuli, No Auditory hallucinations, No Visual hallucinations Attention Span Ability: Capable of Focused Attention, Capable of Sustained Attention Memory Description: Grossly Intact Patient Reliability: Reliable Historian Fund of knowledge: Yes abstraction ability, Yes average Intelligence Estimate: Average Judgment: Fair Insight: Partial Results - Drug Levels and Toxicology Drug Levels and Toxicology: Drug Levels and Toxicity 02/02/19 02/02/19 11:27 13:03 Acetaminophen < 10 L Ethyl Alcohol < 10 - Labs Labs: Laboratory Last Values WBC 8.0 K/mcL (4.3-11.1) 02/03/19 05:10 RBC 4.80 M/mcL (4.19-5.50) 02/03/19 05:10 Hgb 15.6 g/dL (12.9-16.9) D 02/03/19 05:10 Hct 44.7 % (37.5-50.1) 02/03/19 05:10 MCV 93.1 fL (83.0-100.0) 02/03/19 05:10 MCH 32.5 pg (28.0-33.3) 02/03/19 05:10 MCHC 34.9 g/dL (31.6-35.5) 02/03/19 05:10 RDW 12.7 % (11.5-14.5) 02/03/19 05:10 Plt Count 163 K/mcL (140-400) D 02/03/19 05:10 MPV 9.4 fL (9.4-12.4) 02/03/19 05:10 Immature Gran % 0.9 % (0-4) 02/03/19 05:10 Seg Neutrophils % 65.8 % 02/03/19 05:10 Lymphocytes % 19.1 % 02/03/19 05:10 Monocytes % 12.0 % 02/03/19 05:10 Eosinophils % 1.6 % 02/03/19 05:10 Basophils % 0.6 % 02/03/19 05:10 Neutrophils # 5.3 K/mcL (1.6-8.9) 02/03/19 05:10 Lymphocytes # 1.5 K/mcL (0.6-4.6) 02/03/19 05:10 Monocytes # 1.0 K/mcL (0.0-1.3) 02/03/19 05:10 Eosinophils # 0.1 K/mcL (0.0-0.6) 02/03/19 05:10 Basophils # 0.1 K/mcL (0.0-0.2) 02/03/19 05:10 Sodium 130 mEq/L (136-145) L 02/03/19 05:10 Potassium 3.6 mEq/L (3.5-5.1) 02/03/19 05:10 Chloride 101 mEq/L (98-107) 02/03/19 05:10 Carbon Dioxide 21 mEq/L (23-29) L 02/03/19 05:10 BUN 17 mg/dL (6-20) 02/03/19 05:10 Creatinine 2.14 mg/dL (0.70-1.30) H 02/03/19 05:10 Est GFR ( Amer) 40 (> 60) L 02/03/19 05:10 Est GFR (Non-Af Amer) 33 (> 60) L 02/03/19 05:10 BUN/Creatinine Ratio 8 (6-26) 02/03/19 05:10 Glucose 94 mg/dL (70-105) 02/03/19 05:10 Calculated Osmolality 271 (280-300) L 02/03/19 05:10 Lactic Acid 1.5 mmol/L (0.5-2.2) 02/02/19 13:03 Calcium 8.4 mg/dL (8.6-10.3) L 02/03/19 05:10 Magnesium 2.4 mg/dL (1.6-2.6) 02/02/19 11:27 Total Bilirubin 2.0 mg/dL (0.3-1.0) H 02/02/19 13:03 Direct Bilirubin 0.6 mg/dL (0.0-0.2) H 02/02/19 13:03 Indirect Bilirubin 1.4 mg/dL (0.0-1.2) H 02/02/19 13:03 AST 25 Units/L (13-39) 02/02/19 13:03 ALT 15 Units/L (7-52) 02/02/19 13:03 Alkaline Phosphatase 56 Units/L (34-104) 02/02/19 13:03 Creatine Kinase 161 Units/L (30-223) 02/02/19 13:03 Troponin I < 0.03 ng/mL (< 0.04) 02/02/19 11:27 Serum Total Protein 7.2 g/dL (6.4-8.9) 02/02/19 13:03 Albumin 4.0 g/dL (3.5-5.7) 02/02/19 13:03 Globulin 3.2 g/dL (2.4-3.5) 02/02/19 13:03 Albumin/Globulin Ratio 1.3 (1.1-2.2) 02/02/19 13:03 Urine Color Dark Yellow (Yellow) 02/02/19 11:43 Urine Clarity Clear (Clear) 02/02/19 11:43 Urine pH 5.0 pH Units (5.0-8.0) 02/02/19 11:43 Ur Specific [place] 1.024 (1.010-1.025) 02/02/19 11:43 Urine Protein 100 mg/dL (Neg-Trace) H 02/02/19 11:43 Urine Glucose (UA) Normal mg/dL (Normal) 02/02/19 11:43 Urine Ketones Trace mg/dL (Negative) H 02/02/19 11:43 Urine Blood Negative (Negative) 02/02/19 11:43 Urine Nitrite Negative (Negative) 02/02/19 11:43 Urine Bilirubin Moderate (Negative) H 02/02/19 11:43 Urine Urobilinogen Normal mg/dL (Normal) 02/02/19 11:43 Ur Leukocyte Esterase Negative (Negative) 02/02/19 11:43 Urine Microscopic RBC 5-15 per hpf (0-3) H 02/02/19 11:43 Urine Microscopic WBC 3-5 per hpf (0-3) H 02/02/19 11:43 Ur Squamous Epith Cells Many per lpf (None-Few) H 02/02/19 11:43 Urine Bacteria None Seen per hpf (None-Few) 02/02/19 11:43 Hyaline Casts Moderate per lpf (None-Few) H 02/02/19 11:43 Ur Culture Indicated? NO (NO) 02/02/19 11:43 Urine Osmolality 437 mOsm/kg (300-1090) 02/02/19 11:43 Urine Creatinine 424 mg/dL 02/02/19 11:43 Urine Sodium 18.2 mEq/L 02/02/19 11:43 Salicylates < 2.5 mg/dL (15.0-30.0) L 02/02/19 13:03 Urine Opiates Screen Negative ng/mL (Zuzags=150) 02/02/19 11:43 Ur Buprenorphine Scrn Negative ng/mL (Cutoff=5) 02/02/19 11:43 Acetaminophen < 10 mcg/mL (10-20) L 02/02/19 13:03 Ur Barbiturates Screen Negative ng/mL (Dsqwxi=503) 02/02/19 11:43 Ur Phencyclidine Scrn Negative ng/mL (Cutoff=25) 02/02/19 11:43 Ur Amphetamines Screen Negative ng/mL (Jqxstm=1739) 02/02/19 11:43 U Benzodiazepines Scrn Negative ng/mL (Hqmfmm=989) 02/02/19 11:43 Urine Cocaine Screen Negative ng/mL (Cutoff= 300) 02/02/19 11:43 U Marijuana (THC) Screen Positive ng/mL (Cutoff = 50) H 02/02/19 11:43 Ur Drug Screen Interp See Below 02/02/19 11:43 Ethyl Alcohol < 10 mg/dL (Less than 10) 02/02/19 11:27 - Impressions Impressions Retroperitoneum Ultrasound 02/02/19 17:00 IMPRESSION: Unremarkable ultrasound of the kidneys. Suboptimal imaging of the urinary bladder demonstrates no gross abnormality. D/ / Edgardo Whyte / Edgardo Whyte Interpreting Provider: Edgardo Whyte Consult Discharge Plan - Plan Referrals: NONE,PCP [Primary Care Provider] - - Attending Attestation I examined this patient and my medical decision-making was reviewed with the Resident Physician. I agree with the documented findings, disposition and treatment plan as described except to the extent set forth below. Saw pt on 02/03/19. Agree with plan above.
[2019-02-03] MEDS ORDERED: Lidocaine Viscous Oral Soln 15 ML SOLUTION MM PRN (16:15)
--- NOTE | 2019-02-03 16:16 | Internal Med Progress Note ---
Hospitalist Progress Note - Encounter Date of Encounter: 02/03/19 Time of Encounter: 16:14 - Subjective Interval History: Patient feels dryness mouth and thirsty. He has been able to drink water orally but unable to keep much food down. His urine has been clearing up. He states that he was out in the sun a lot and was very dehydrated and has been having increased fatigue and weakness and muscle pain. He feels much better today. - Exam Vitals: Temp Pulse Resp BP Pulse Ox 98.4 F 86 14 111/84 99 02/03/19 16:04 02/03/19 16:04 02/03/19 16:04 02/03/19 16:04 02/03/19 11:00 Exam: General: Patient is alert, no acute distress, oriented x 3 ENT: Mucous membranes dry Respiratory: Good respiratory effort. Normal breath sounds. No wheezing or crackles. Cardiovascular: Regular rate and rhythm. s1 and s2 normal No clicks, rubs, gallops, or murmurs. No pedal edema Abdomen: Abdomen is soft, epigastric tenderness. Bowel sounds are present Musculoskeletal: Spontaneously moving all extremities Skin: warm, dry, intact. Neuro: Alert oriented x 3 normal cranial nerves, no focal deficits - Assessment and Plan (1) Acute renal failure Current Visit: Yes Status: Acute (2) Suicidal ideation Current Visit: Yes Status: Acute (3) GERD (gastroesophageal reflux disease) Current Visit: No Status: Chronic (4) Alcohol dependence Current Visit: Yes Status: Acute (5) Leukocytosis Current Visit: Yes Status: Resolved (6) Intractable nausea and vomiting Current Visit: Yes Status: Acute DVT Prophylaxis: Subcutaneous heparin - Summary of Assessment and Plan Summary of Assessment and Plan: Acute kidney injury: Likely prerenal. Continue IV hydration. Improving overall. Creatinine 2.14 today. Encouraged oral fluid intake. Suicidal ideation: Patient has been evaluated by psychiatry and recommended placement to psychiatric unit when medically stable. Intractable nausea and vomiting: Slightly improved. Patient encouraged to drink liquids. Will continue keep him on clear liquid diet. Continue PPI. We will add viscous lidocaine to help with his pain with swallowing. He does have a history of gastroesophageal reflux disease with esophagitis. Patient's urine s creen was positive for marijuana which can also cause intractable nausea and vomiting. History of Alcohol dependence: No recent alcohol use. - Time Spent with Patient Total time spent is greater than 50% in coordination of care (as documented) at patient's floor/unit and/or counseling patient: Internal Medicine: Result - Labs CBC & Chem 7: 02/03/19 05:10 02/03/19 05:10 Labs: Short CBC 02/03/19 Range/Units 05:10 WBC 8.0 (4.3-11.1) K/mcL Hgb 15.6 D (12.9-16.9) g/dL Hct 44.7 (37.5-50.1) % Plt Count 163 D (140-400) K/mcL Neutrophils # 5.3 (1.6-8.9) K/mcL BMP 02/03/19 05:10 Sodium 130 L Potassium 3.6 Chloride 101 Carbon Dioxide 21 L BUN 17 Creatinine 2.14 H Glucose 94 Calcium 8.4 L - Impressions Impressions Retroperitoneum Ultrasound 02/02/19 17:00 IMPRESSION: Unremarkable ultrasound of the kidneys. Suboptimal imaging of the urinary bladder demonstrates no gross abnormality. D/ / Edgardo Whyte / Edgardo Whyte Interpreting Provider: Edgardo Whyte Consult Discharge Plan - Plan Referrals: NONE,PCP [Primary Care Provider] - (1) Acute renal failure Qualifiers: Acute renal failure type: unspecified Qualified Code(s): N17.9 - Acute kidney failure, unspecified (3) GERD (gastroesophageal reflux disease) Qualifiers: Esophagitis presence: with esophagitis Qualified Code(s): K21.0 - Gastro-esophageal reflux disease with esophagitis (4) Alcohol dependence Qualifiers: Substance use status: other alcohol-induced disorder Qualified Code(s): F10.288 - Alcohol dependence with other alcohol-induced disorder (5) Leukocytosis Qualifiers: Leukocytosis type: unspecified Qualified Code(s): D72.829 - Elevated white blood cell count, unspecified (6) Intractable nausea and vomiting Qualifiers: Vomiting type: unspecified Qualified Code(s): R11.2 - Nausea with vomiting, unspecified
[2019-02-03] MEDS: Ringers Solution, Lactated 1,000 ML IVC SCH (16:38)
[2019-02-03] MEDS ORDERED: Melatonin 3 MG TABLET PO SCH (21:00)
[2019-02-04] MEDS: *HR* Heparin 5,000 UNIT/ML VIAL SQ SCH (05:11)
[2019-02-04] MEDS: Ringers Solution, Lactated 1,000 ML IVC SCH ×2 (05:12→09:02)
[2019-02-04 05:39] LABS: Basophils # 0.1 K/mcL (0.0-0.2); Basophils % 0.8 %; Eosinophils # 0.1 K/mcL (0.0-0.6); Eosinophils % 1.8 %; Hematocrit 43.3 % (37.5-50.1); Hemoglobin 15.1 g/dL (12.9-16.9); Immature Granulocytes % 0.8 % (0-4); Lymphocytes # 1.4 K/mcL (0.6-4.6); Mean Corpuscular HGB Conc 34.9 g/dL (31.6-35.5); Mean Corpuscular Hemoglobin 32.3 pg (28.0-33.3); Mean Corpuscular Volume 92.5 fL (83.0-100.0); Mean Platelet Volume 9.9 fL (9.4-12.4); Monocytes # 0.7 K/mcL (0.0-1.3); Monocytes % 11.7 %; Neutrophils # 3.9 K/mcL (1.6-8.9); Platelet Count 149 K/mcL (140-400); Red Blood Count 4.68 M/mcL (4.19-5.50); Red Cell Distribution Width 12.7 % (11.5-14.5); Segmented Neutrophils % 61.9 %; White Blood Count 6.3 K/mcL (4.3-11.1)
[2019-02-04 05:58] LABS: BUN/Creatinine Ratio 10 (6-26); Blood Urea Nitrogen 13 mg/dL (6-20); Calcium 8.7 mg/dL (8.6-10.3); Carbon Dioxide 25 mEq/L (23-29); Chloride 101 mEq/L (98-107); Glucose 98 mg/dL (70-105); Osmolality,Calculated 278 (280-300); Potassium 3.7 mEq/L (3.5-5.1); Sodium 134 mEq/L (136-145); eGFR For African Americans > 60 (> 60); eGFR For Non-African Americans 56 (> 60)
[2019-02-04] MEDS: Cyanocobalamin (B-12) 1,000 MCG TABLET PO SCH (09:03)
[2019-02-04] MEDS: Folic Acid 1 MG TABLET PO SCH (09:03)
[2019-02-04] MEDS ORDERED: predniSONE 20 MG TABLET PO SCH (13:30)
--- NOTE | 2019-02-04 15:07 | Discharge Summary ---
- NOTES TO OUTPATIENT PROVIDER Notes to Outpatient Provider: Patient with a history of gastroesophageal reflux disease with esophagitis, hypertension and hyperlipidemia, gout depression and suicidal ideation was hospitalized here with complaints of increased nausea and vomiting and inability to keep any food down along with dehydration. Patient was found to have acute kidney injury and was treated with IV fluids with improvement in his renal function. He was placed back on PPI and his symptoms of GERD and nausea and vomiting resolved. He is now tolerating diet and is clinically stable for discharge. Patient also reported symptoms of developing acute gout flareup. As such he has been placed on prednisone and also his allop urinol has been restarted. Would recommend avoiding NSAIDs given his history of esophagitis and GERD. Date of Encounter: 02/04/19 Time of Encounter: 15:05 - Discharge Diagnosis (1) Acute renal failure Priority: Primary Status: Acute Qualifiers: Acute renal failure type: unspecified Qualified Code(s): N17.9 - Acute kidney failure, unspecified (2) Suicidal ideation Priority: Secondary Status: Acute (3) GERD (gastroesophageal reflux disease) Priority: Secondary Status: Chronic Qualifiers: Esophagitis presence: with esophagitis Qualified Code(s): K21.0 - Gastro- esophageal reflux disease with esophagitis (4) Alcohol dependence Priority: Secondary Status: Acute Qualifiers: Substance use status: other alcohol-induced disorder Qualified Code(s): F10.288 - Alcohol dependence with other alcohol-induced disorder (5) Leukocytosis Priority: Secondary Status: Resolved Qualifiers: Leukocytosis type: unspecified Qualified Code(s): D72.829 - Elevated white blood cell count, unspecified (6) Intractable nausea and vomiting Priority: Secondary Status: Acute Qualifiers: Vomiting type: unspecified Qualified Code(s): R11.2 - Nausea with vomiting, unspecified (7) Gout Priority: Primary Status: Acute Qualifiers: Gout site: ankle Chronicity: chronic Laterality: left Presence of tophus: without tophus Qualified Code(s): 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 Montes De Oca is a 48 year old male Patient with a history of gastroesophageal reflux disease with esophagitis, hypertension and hyperlipidemia, gout depression and suicidal ideation was hospitalized here with complaints of increased nausea and vomiting and inability to keep any food down along with dehydration. Patient was found to have acute kidney injury and was treated with IV fluids with improvement in his renal function. He was placed back on PPI and his symptoms of GERD and nausea and vomiting resolved. He is now tolerating diet and is clinically stable for discharge. Patient also had continued symptoms of depression and suicidal ideation. He was pink slipped initially and then evaluated by psychiatry who recommended psychiatric hospitalization when he is medically stable for discharge. Patient will be discharged today and will be admitted to inpatient psychiatric unit here. Patient also reported symptoms of developing acute gout flareup. As such he has been placed on prednisone and also his allopurinol has been restarted. Would recommend avoiding NSAIDs given his history of esophagitis and GERD. Discharge discussed with: patient - Time Spent with Patient Total time spent providing and/or coordinating discharge services: Time spent: Less than 30 minutes (25 min) - Discharge Medications Prescriptions: New predniSONE [PredniSONE] 40 mg PO DAILY #30 tablet Allopurinol [Zyloprim 100 MG] 100 mg PO DAILY #30 tablet Continued Lisinopril [Zestril] 20 mg PO QAM Trazodone HCl 100 mg PO HS PRN PRN Reason: Sleep Pantoprazole Sodium [Protonix] 40 mg PO BID #60 tablet. Home Medications: Lisinopril [Zestril] 20 mg PO QAM 12/15/17 [History] Trazodone HCl 100 mg PO HS PRN 10/15/18 [History] Pantoprazole Sodium [Protonix] 40 mg PO BID #60 tablet. 01/22/19 [Rx] Allopurinol [Zyloprim 100 MG] 100 mg PO DAILY #30 tablet 02/04/19 [Rx] predniSONE [PredniSONE] 40 mg PO DAILY #30 tablet 02/04/19 [Rx] Allergies/Adverse Reactions: Allergy/AdvReac Type Severity Reaction Status Date / Time No Known Allergies Allergy Verified 02/03/19 18:20 Date of admission: 02/02/19 14:20 Primary care physician: PCP NONE Consults: 02/02/19 14:20 Consult to Paste Plant Supervisor [CONS] Routine Reason for SW Consult: Several social factors, patient states he does not have a place to go, needs psychiatric follow-up as an outpatient, does not have funds for medications and no family around 02/02/19 14:33 Consult to Psychiatry [CONS] Routine Consulting Provider: Psychiatry Aileen Reason consult: [place] slip on chart [place] Slip initiated date and time: Suicidal Ideation. [place] Slip already initi ated per ER resident Discharging clinician: Fernando Sharp Anticipated date of discharge: 02/04/19 - Constitutional Vitals: Temp Pulse Resp BP Pulse Ox 98.2 F 81 20 117/74 99 02/04/19 11:00 02/04/19 11:00 02/04/19 11:00 02/04/19 11:00 02/04/19 11:00 Exam: General: Patient is alert, no acute distress, oriented x 3 Respiratory: Good respiratory effort. Normal breath sounds. No wheezing or crackles. Cardiovascular: Regular rate and rhythm. s1 and s2 normal No clicks, rubs, gallops, or murmurs. No pedal edema Abdomen: Abdomen is soft, nontender. Bowel sounds are present Musculoskeletal: Spontaneously moving all extremities Skin: warm, dry, intact. Neuro: Alert oriented x 3 normal cranial nerves, no focal deficits - Patient Status Disposition: Transfer Psychiatric Hosp Condition: Good Functional capacity at discharge: independent ambulation Overall status at discharge: patient is progressing back to baseline - Discharge Instructions Instructions: Acute Kidney Injury (DC), Chest Pain (DC) Follow Up With: NONE,PCP [Primary Care Provider] - (in 1 week) Forms: ED Satisfaction Letter - Diet and Activity Activity: increase activity as tolerated Diet: low fat, low cholesterol, low salt diet
[2019-02-04 15:15] VITALS: BP 116/81
== END 2019-02-04 19:09 | DRG 469 ==
LOC: EMEROOARM 11:15 → 2NENU 14:20
PROVIDERS: ADMIT Internal Medicine; ATTEND Internal Medicine

== ENCOUNTER 2019-02-04 17:47 | Inpatient (IN) ==
[2019-02-04] MEDS ORDERED: Acetaminophen 325 MG TABLET PO PRN (19:43)
[2019-02-04] MEDS ORDERED: MOM Conc 10 ML UD.LIQ PO PRN (19:43)
[2019-02-04] MEDS ORDERED: traZODone 50 MG TABLET PO PRN ×2 (19:43→19:48)
[2019-02-04] MEDS ORDERED: Mag Hydrox/Al Hydrox/Simeth 30 ML UDC PO PRN (19:43)
[2019-02-04] MEDS ORDERED: *HR* LORazepam 2 MG/ML VIAL IM PRN (19:43)
[2019-02-04] MEDS ORDERED: Haloperidol Lactate 5 MG/ML VIAL IM PRN (19:43)
[2019-02-04] MEDS ORDERED: *HR* LORazepam 1 MG TABLET PO PRN (19:43)
[2019-02-04] MEDS: hydrOXYzine pamoate 25 MG CAPSULE PO PRN (23:05)
[2019-02-05] MEDS: predniSONE 20 MG TABLET PO SCH (08:49)
[2019-02-05] MEDS: Lisinopril 20 MG TABLET PO SCH (08:50)
--- NOTE | 2019-02-05 08:53 | Psychiatry History & Physical ---
Date of Encounter: 02/05/19 Time of Encounter: 08:00 History of Present Illness Patient Stated Chief Complaint: I want to Medicare Admission Attestation: For traditional Medicare patients the provided hospital inpatient services are reasonable and necessary and in the case of services not specified as inpatient-only under 42 CFR 419.22 (n), that they are appropriately provided as inpatient services in accordance 42 CFR 412.3. For Critical Access Hospital the patient may reasonably be expected to be discharged or transferred to a hospital within 96 hours after admission to the Critical Access Hospital. Admitted From: Intrahospital Transfer Plans for Post Hospital Care: Home History of Present Illness: Mr. Montes De Oca is a 48 year old male admitted to the medical floor for nausea, vomit ting and acute renal failure. Psychiatry was consultative during that stay due to suicidal ideations. We recommended transfer to one A once medically stable. On interview today client admits to recent suicide attempt approximately 2 weeks ago. He states he attempted to overdose on his trazodone but ended up "sleeping for 2 days then going back to work." He denies seeking help at this time stating "I wasn't going to call an ambulance" and "I didn't want to lose my job." He admits to previous episodes of depression in the past but denies previous suicide attempts. He states that in the past 2 years he has lost his marriage, his home, his career, and his dogs. He was tearful throughout the interview and admitted to suicidal ideation. He denies having a specific plan but does state "I have no reason left to live" and "I'll probably just go find a bridge." He admits to suicidal ideation in the past but states "I always denied it when anyone asked so I wouldn't get admitted." He reports sad mood, decreased interest, feelings of guilt and worthlessness, low energy, and hopelessness. He denies a history of manic symptoms. He denies psychotic symptoms. The only previous antidepressant he can recall taking is Lexapro which he denies noticing any benefit from. He does not have an outpatient psychiatrist and is interested in getting established with outpatient mental health. He denies AH, VH or HI. He does admit to excessive alcohol consumption in the past but states he stopped "2 weeks ago." He denies any other illicit drug use including: heroin, cocaine, methamphetamine or marijuana. He denies having any social support in the area but does admit "my ex has been helping me some." Past Med Surg Social Fam HX - Past Medical History Medical history: GERD, hyperlipidemia, hypertension - Past Psychiatric History Psychiatric history: Reports: depression, prior suicide attempt, previous psychiatric hospitalization Past psychiatric history details: He was at [facility] a few months ago. At that time he was started on Lexapro and trazodone. He seems to have not continued the Lexapro or followed up with outpatient linkage. He reports prior suicide attempt as stated earlier. Family psychiatric history: Yes Family Psychiatric History Details: Depression on both sides Family History of Suicide: None - Past Surgical History Surgical History: no surgical history - Social History Smoking Status: Never smoker Smokeless Tobacco Status: Yes Alcohol use: heavy Drug use: marijuana Occupational status: employed Current living situation: Home - Independent Activity Level: Independent ambulation Recent Out of Country Travel Within the Last 8 Weeks: No Exposure or Possible Exposure to Illness During Travel: No - Family History Mother Living Status: Hx Family Cardiac Disorders: Yes ([place]) Hx Family Endocrine Disorder: Yes ([place]) Father Living Status: Hx Family Cardiac Disorders: Yes (HTN) Hx Family Endocrine Disorder: Yes (DM) Hx Family Neurologic Disorders: Yes (stroke) Brother Adopted: No Living Status: Still Living Hx Family Cardiac Disorders: No Hx Family Respiratory Disorders: No Hx Family Cancer: No Hx Family GI Disorders: No Hx Family Endocrine Disorder: No Hx Family Neuromuscular Disorders: No Hx Family Neurologic Disorders: No Hx Family HEENT Disorders: No Hx Family Autoimmune Disorders: No Medications & Allergies Lisinopril [Zestril] 20 mg PO QAM 12/15/17 [History] Trazodone HCl 100 mg PO HS PRN 10/15/18 [History] Pantoprazole Sodium [Protonix] 40 mg PO BID #60 tablet. 01/22/19 [Rx] Allopurinol [Zyloprim 100 MG] 100 mg PO DAILY #30 tablet 02/04/19 [Rx] predniSONE [PredniSONE] 40 mg PO DAILY #30 tablet 02/04/19 [Rx] Allergy/AdvReac Type Severity Reaction Status Date / Time No Known Allergies Allergy Verified 02/03/19 18:20 Review of Systems Constitutional: Reports: weakness Eyes: Denies: eye pain Ears, Nose, Throat: Denies: ear pain Cardiovascular: Denies: chest pain Respiratory: Denies: cough Gastrointestinal: Denies: abdominal pain Genitourinary male: Denies: urgency Musculoskeletal: Reports: joint pain Integumentary: Denies: rash Neurological: Reports: weakness Psychiatric: Reports: depression, anxiety, suicidal ideation, anhedonia, hopelessness. Denies: homicidal ideation, auditory hallucinations, visual hallucinations Endocrine: Reports: fatigue Hematologic/Lymphatic: Denies: easy bleeding Allergic/Immunologic: Denies: facial swelling Exam - HEENT Head exam IM: Present: atraumatic Eye exam IM: Present: EOMI ENT exam IM: Present: mucous membranes moist - Neurological Neurological exam: Present: CN II-XII intact - Respiratory Respiratory exam IM: Absent: respiratory distress - GI/Abdominal GI/Abdominal exam IM: Present: no peritoneal signs - Extremities Extremities exam IM: Present: full ROM - Skin Skin exam IM: Absent: abrasion - Constitutional Vitals: Temp Pulse Resp BP Pulse Ox 97.5 F L 82 18 126/87 97 02/04/19 19:55 02/04/19 19:55 02/04/19 19:55 02/04/19 19:55 02/04/19 19:55 General appearance: age & developmentally appropriate - Musculoskeletal Gait: slow Station: stooped Strength & Tone: normal for patient - Psychiatric Patient Orientation: Yes Person, Yes Time, Yes Place, Yes Circumstance Level of alertness: Alert Behavior: withdrawn Psychomotor activity: Slowed Eye Contact: Minimal Contact Mood Description: Depressed Patient description of mood: Hopeless Affect description: dysphoric Speech Volume: Soft/Quiet Speech pattern: normal rate Language & Vocabulary: consistent with education Thought Process: Intact Thought Content: Yes Suicidal ideation, No Homicidal ideation Perceptual Disturbances: No Auditory hallucinations, No Visual hallucinations Attention Span Ability: Capable of Focused Attention Memory Description: Grossly Intact Patient Reliability: Reliable Historian Fund of knowledge: Yes abstraction ability, Yes average, Yes aware of current events Intelligence Estimate: Average Judgment: Limited Insight: Minimal Assessment and Plan (1) Depression Current visit: Yes Status: Acute Plan: Admit inpatient for safety and stabilization, Close observation, Suicide Precautions per unit protocol, Encourage participation in unit milieu, Group Therapy, Monitor sleep, Monitor appetite Additional Plan: We will start Prozac 20 mg by mouth every morning increase trazodone for poor sleep. Encourage group attendance. Therapists work on discharge planning. Risks, benefits, side effects, alternatives discussed w/pt: Yes Patient agreeable to treatment: Yes Plans for Post Hospital Care: Home Estimated Length of Stay (Days): 5 Qualifiers: Depression Type: major depressive disorder Major depression recurrence: recurrent Active/Remission status: currently active Major depression episode severity: severe Psychotic features: without psychotic features Qualified Code(s): F33.2 - Major depressive disorder, recurrent severe without psychotic features
[2019-02-05] MEDS: FLUoxetine 20 MG CAPSULE PO SCH (10:22)
[2019-02-05] MEDS: traZODone 50 MG TABLET PO SCH (21:48)
[2019-02-06] MEDS: FLUoxetine 20 MG CAPSULE PO SCH (09:24)
[2019-02-06] MEDS: Lisinopril 20 MG TABLET PO SCH (09:25)
[2019-02-06] MEDS: predniSONE 20 MG TABLET PO SCH (09:25)
--- NOTE | 2019-02-06 11:05 | Psychiatry Progress Note ---
Date of Encounter: 02/06/19 Time of Encounter: 10:00 Subjective Interval history: Mr. Montes De Oca was seen today socializing in the dayroom. He was engaging with other patients and helping out with putting their meal trays away. When asked about his mood he states "my depression is really bad this morning." He states his depression is "always worse in the mornings." He states he has "so much going through my head." He continues to worry about housing and is afraid he will be evicted since he hasn't paid his mortgage "in a while." He states he has an upcoming court date on February 22 for a possible probation violation after he was pulled over and admitted to drinking. 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 He denies SI or HI but states that if he returned home he may "want to in my end house." He reports poor sleep since admission because "they keep opening my damn door." He denies AH/VH. Review of Systems Psychiatric: Reports: depression, anxiety, anhedonia, hopelessness. Denies: suicidal ideation, homicidal ideation, auditory hallucinations, visual hallucinations Results - Vital Signs Vital Signs: Temp Pulse Resp BP Pulse Ox 97.1 F L 78 20 112/79 100 02/06/19 09:00 02/06/19 09:00 02/06/19 09:00 02/06/19 09:00 02/06/19 09:00 Assessment and Plan (1) Major depression, recurrent Current visit: No Status: Acute Plan: Continue hospitalization, Encourage participation in unit milieu, Group Therapy, Monitor sleep, Monitor appetite Additional Plan: Patient tolerating Prozac 20mg well without side effects, continue at current dose. Will continue to monitor for side effects. Risks, benefits, side effects, alternatives discussed w/pt: Yes Patient agreeable to treatment: Yes Qualifiers: Active/Remission status: currently active Major depression episode severity: moderate Qualified Code(s): F33.1 - Major depressive disorder, recurrent, moderate (2) Suicidal ideation Current visit: Yes Status: Resolved Plan: Continue hospitalization, Encourage participation in unit milieu, Group Therapy, Monitor sleep, Monitor appetite Risks, benefits, side effects, alternatives discussed w/pt: Yes Patient agreeable to treatment: Yes Consult Discharge Plan - Plan Referrals: [facility] [Outside] - 02/15/19 10:00 am (You have an appointment scheduled with Lazara Cottrell on Wednesday, February 15, 2019 at 10:00 AM for Counseling and Case Management. Please contact the office at least 24 hours in advance if you are unable to keep your appointment(s). ) - Attending Attestation I examined this patient and my medical decision-making was reviewed with the Resident Physician. I agree with the documented findings, disposition and treatment plan as described except to the extent set forth below. Saw patient, mental status and plan as stated above. Psychiatry Exam - Constitutional Vitals: Temp Pulse Resp BP Pulse Ox 97.1 F L 78 20 112/79 100 02/06/19 09:00 02/06/19 09:00 02/06/19 09:00 02/06/19 09:00 02/06/19 09:00 General appearance: age & developmentally appropriate, well-groomed - Musculoskeletal Gait: normal Station: relaxed Strength & Tone: normal for patient - Psychiatric Patient Orientation: Yes Person, Yes Time, Yes Place, Yes Circumstance Level of alertness: Alert Behavior: calm, cooperative Psychomotor activity: Normal Eye Contact: Maintains Eye Contact Mood Description: Depressed Patient description of mood: "depressed" Affect description: congruent with mood Speech Volume: Normal Speech pattern: normal rate, normal rhythm, normal tone, fluent Language & Vocabulary: consistent with education Thought Process: Intact, Logical, Linear Thought Content: Yes Intact, No Suicidal ideation, No Homicidal ideation, No Overt delusions, No Ideas of reference, No Paranoid delusion Perceptual Disturbances: No Reacting to internal stimuli, No Auditory hallucinations, No Visual hallucinations, No Tactile hallucinations Attention Span Ability: Capable of Focused Attention Memory Description: Grossly Intact Patient Reliability: Reliable Historian Fund of knowledge: Yes average Intelligence Estimate: Average Judgment: Fair Insight: Partial
[2019-02-06] MEDS: traZODone 50 MG TABLET PO SCH (21:48)
[2019-02-07] MEDS: FLUoxetine 20 MG CAPSULE PO SCH (08:31)
[2019-02-07] MEDS: Lisinopril 20 MG TABLET PO SCH (08:31)
[2019-02-07] MEDS: predniSONE 20 MG TABLET PO SCH (08:32)
--- NOTE | 2019-02-07 10:06 | Psychiatry Progress Note ---
Date of Encounter: 02/07/19 Time of Encounter: 08:30 Subjective Interval history: Client reports his mood today is "anxious about my court date." He admits to support from his ex- which has "helped a lot" but continues to change his mind about discharge plans. He worries that if he returns home his suicidal thoughts which are currently absent, will return. He is hoping to get disability stating "I just can't work anymore." He is future oriented speaking of a possible job lined up in [place] which would be indoors and he feels likely a big improvement from his previous work joy. He states his "heads pretty straight" and that he is optimistic he will be "ready to go" tomorrow. He denies suicidal or homicidal ideation at this time. Review of Systems Psychiatric: Reports: depression, anxiety, anhedonia. Denies: suicidal ideation, homicidal ideation, auditory hallucinations, visual hallucinations, hopelessness Results - Vital Signs Vital Signs: Temp Pulse Resp BP Pulse Ox 98.4 F 83 20 109/73 99 02/06/19 21:00 02/06/19 21:00 02/06/19 21:00 02/06/19 21:00 02/06/19 21:00 Assessment and Plan (1) Major depression, recurrent Current visit: No Status: Acute Plan: Continue hospitalization, Encourage participation in unit milieu, Group Therapy, Monitor sleep, Monitor appetite Additional Plan: Continue current medications. Patient to follow up with Natividad Melendez upon dischage. Plan for tentative discharge tomorrow assuming patient feels safe for discharge home with appropriate outpatient follow up. Risks, benefits, side effects, alternatives discussed w/pt: Yes Patient agreeable to treatment: Yes Qualifiers: Active/Remission status: currently active Major depression episode severity: moderate Qualified Code(s): F33.1 - Major depressive disorder, recurrent, moderate (2) Suicidal ideation Current visit: Yes Status: Resolved Risks, benefits, side effects, alternatives discussed w/pt: Yes Patient agreeable to treatment: Yes Consult Discharge Plan - Plan [facility] 02/15/19 10:00 am (You have an appointment scheduled with Lazara Cottrell on Wednesday, February 15, 2019 at 10:00 AM for Counseling and Case Management. Please contact the office at least 24 hours in advance if you are unable to keep your appointment(s). ) - Attending Attestation I examined this patient and my medical decision-making was reviewed with the Resident Physician. I agree with the documented findings, disposition and treatment plan as described except to the extent set forth below. Met with patient. Agree with above. Psychiatry Exam - Constitutional Vitals: Temp Pulse Resp BP Pulse Ox 98.4 F 83 20 109/73 99 02/06/19 21:00 02/06/19 21:00 02/06/19 21:00 02/06/19 21:00 02/06/19 21:00 General appearance: age & developmentally appropriate, well-groomed, well- nourished - Musculoskeletal Gait: normal Station: relaxed Strength & Tone: normal for patient - Psychiatric Patient Orientation: Yes Person, Yes Time, Yes Place, Yes Circumstance Level of alertness: Alert Behavior: calm, cooperative Psychomotor activity: Normal Eye Contact: Maintains Eye Contact Mood Description: Euthymic/stable Patient description of mood: "anxious about court date" Affect description: congruent with mood Speech Volume: Normal Speech pattern: normal rate, fluent, spontaneous, coherent, excessive Language & Vocabulary: consistent with education Thought Process: Intact, Linear, Goal Oriented Thought Content: Yes Intact, No Suicidal ideation, No Homicidal ideation, No Paranoid delusion Perceptual Disturbances: No Reacting to internal stimuli, No Auditory hallucinations, No Visual hallucinations Attention Span Ability: Capable of Focused Attention, Capable of Sustained Attention Memory Description: Grossly Intact Patient Reliability: Reliable Historian Fund of knowledge: Yes average Intelligence Estimate: Average Judgment: Fair Insight: Partial
[2019-02-07] MEDS: traZODone 50 MG TABLET PO SCH (21:50)
[2019-02-07] MEDS: hydrOXYzine pamoate 25 MG CAPSULE PO PRN (21:50)
[2019-02-08] MEDS: Lisinopril 20 MG TABLET PO SCH (10:05)
[2019-02-08] MEDS: FLUoxetine 20 MG CAPSULE PO SCH (10:05)
[2019-02-08] MEDS: predniSONE 20 MG TABLET PO SCH (10:06)
[2019-02-08 10:07] VITALS: BP 113/81
--- NOTE | 2019-02-08 12:29 | Discharge Summary ---
Date of Encounter: 02/08/19 Time of Encounter: 09:00 Diagnosis - Discharge Diagnosis (1) Major depression, recurrent Status: Acute Qualifiers: Active/Remission status: currently active Major depression episode s everity: moderate Qualified Code(s): F33.1 - Major depressive disorder, recurrent, moderate Medications - Discharge Medications Prescriptions: predniSONE [PredniSONE] 40 mg PO DAILY #30 tablet Omeprazole [PriLOSEC] 40 mg PO BIDAC #60 capsule. FLUoxetine HCl [Prozac] 20 mg PO DAILY #30 capsule Trazodone HCl 100 mg PO HS PRN #30 tablet PRN Reason: Sleep Lisinopril [Zestril] 20 mg PO QAM 12/15/17 [History] Allopurinol [Zyloprim 100 MG] 100 mg PO DAILY 02/05/19 [History] PredniSONE [Deltasone] 40 mg PO AD 02/05/19 [History] FLUoxetine HCl [Prozac] 20 mg PO DAILY #30 capsule 02/08/19 [Rx] Omeprazole [PriLOSEC] 40 mg PO BIDAC #60 capsule. 02/08/19 [Rx] Trazodone HCl 100 mg PO HS PRN #30 tablet 02/08/19 [Rx] predniSONE [PredniSONE] 40 mg PO DAILY #30 tablet 02/08/19 [Rx] Allergy/AdvReac Type Severity Reaction Status Date / Time No Known Allergies Allergy Verified 02/05/19 13:37 Provider Date of admission: 02/04/19 17:47 Primary care physician: PCP NONE Discharging clinician: Chris Dickerson [place] Psychiatry Exam - Constitutional Vitals: Temp Pulse Resp BP Pulse Ox 97.4 F L 90 18 113/81 100 02/08/19 09:00 02/08/19 09:00 02/08/19 09:00 02/08/19 09:00 02/08/19 09:00 General appearance: age & developmentally appropriate, well-groomed, well- nourished - Musculoskeletal Gait: normal Station: relaxed Strength & Tone: normal for patient - Psychiatric Patient Orientation: Yes Person, Yes Time, Yes Place, Yes Circumstance Level of alertness: Alert Behavior: calm, cooperative Psychomotor activity: Normal Eye Contact: Maintains Eye Contact Mood Description: Anxious Patient description of mood: "Still anxious about my court date" Affect description: congruent with mood, anxious Speech Volume: Normal Speech pattern: normal rate, normal rhythm, normal tone Language & Vocabulary: consistent with education Thought Process: Intact, Logical, Linear, Goal Oriented Thought Content: Yes Intact, No Suicidal ideation, No Homicidal ideation, No Overt delusions, No Paranoid delusion Perceptual Disturbances: No Reacting to internal stimuli, No Auditory hallucinations, No Visual hallucinations, No Tactile hallucinations Attention Span Ability: Capable of Focused Attention, Capable of Sustained Attention Memory Description: Grossly Intact Patient Reliability: Reliable Historian Fund of knowledge: Yes average Intelligence Estimate: Average Judgment: Fair Insight: Partial Hospital Course Hospital course: Mr. Montes De Oca is a 48 year old male admitted from medicine for suicidal ideation with suicide attempt 2 weeks prior to admission to medicine for acute kidney injury. His suicide attempt was an overdose attempt with Trazodone. 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 He admits to several recent life stressors including an upcoming eviction from his house, possible probation violation for DUI, loss of a relationship, loss of his job, and several financial concerns. He was started on Prozac 20mg and his Trazodone was increased to help with sleep. He tolerated prozac well with no reported adverse events. His mood continually improved throughout his admission and he began to be more future oriented. Since admission patient has secured a new job which won't require outdoor work, found temporary housing with a friend, and rekindled a relationship with his ex-. At time of discharge he is denying SI, HI, and states he is "hopeful." He admits to continued anxiety related to his legal concenrs but states his depression is "improving." Does patient wish to continue nicotine replacement upon disc: No - Time Spent with Patient Total time spent providing and/or coordinating discharge services: Less than 30 minutes Assessment and Plan - Patient/Caregiver Discharge Instructions Activity: resume usual activities as tolerated, return to work Diet: advance to your usual diet - Follow up Plan Follow up with: [facility] [Other] ([facility] offers care and disease management programs. These programs can help you learn about your health and how you can better manage your specific health conditions. The goal of case management is to make sure you have the right tools to stay as healthy as possible. These programs are available to you at no cost. Greg will contact you after discharge to discuss case management services with you. ) [facility]Outside[place] ([facility] will call you with appointment information. ) Robbin Cavanaugh DO [Resident] - (Please contact the office at the number above and follow up with your primary care provider as needed. Please keep your primary care provider informed of any changes in your medications or medical conditions. Your medication list and lab work have been sent to your primary care provider per your request. ) Functional capacity at discharge: independent ambulation Overall status at discharge: Stable Disposition: Home, Self-Care Quality - Multiple Antipsychotics Patient discharged on 2 or more antipsychotic medications: No - Attending Attestation I examined this patient and my medical decision-making was reviewed with the Resident Physician. I agree with the documented findings, disposition and treatment plan as described. Patient was educated of his diagnosis and the risks, benefits, and side effects of this treatment and alternative treatment options and was monitored for responsiveness and side effects. Mood, anxiety, sleep, appetite, and interest improved, as did future orientation. Self-harm thoughts subsided, thinking cleared, psychosis resolved, and mood stabilized. Patient was able to attend both individual and group therapy sessions as well as meeting with the psychiatrist daily and urged to discuss any medication or treatment issues or other concerns. The patient was educated primarily by verbal means about their diagnosis and manifestations in their life. The option for treatment including group and individual therapy programming was offered to the patient in the use of medications with all their potential risks, benefits, and side effects were discussed with the patient at length. The patient was given the opportunity to ask questions and was noted to participate in the treatment in the planning process. The patient felt ready and eager to be discharged from the inpatient psychiatric unit to continue on with treatment as an outpatient. The patient agreed that he is safe for this disposition. The patient was considered to be able to participate in informed consent and decision making with respect to medical, legal, and financial issues of the time of discharge. At the time of discharge the patient adamantly denied any concerns for lethality including suicidal or homicidal thoughts ideations or plans and was future oriented toward ongoing mental health care, medical follow-up and sobriety. Procedures - Procedures Procedures: Medication Management, Crisis Stabilization, Supportive Therapy, Group Therapy
== END 2019-02-08 14:15 | disposition home or self-care (01) | DRG 751 ==
LOC: 1ANU 17:47
PROVIDERS: ADMIT Psychiatry & Neurology Psychiatry; ATTEND Psychiatry & Neurology Psychiatry

== ENCOUNTER 2019-09-27 09:39 | Observation (INO) ==
[2019-09-27] MEDS ORDERED: Aspirin 81 MG TAB.CHEW PO ONE (09:44)
[2019-09-27] MEDS ORDERED: Nitroglycerin 0.4 MG TAB.SUBL SL PRN (09:44)
[2019-09-27] MEDS ORDERED: Isovue-370 500 ML BOTTLE IVP ONE (09:48)
[2019-09-27] MEDS ORDERED: *HR* LORazepam 2 MG/ML VIAL IVP PRN ×3 (09:49)
[2019-09-27 10:17] LABS: Basophils # 0.1 K/mcL (0.0-0.2); Basophils % 0.5 %; Eosinophils # 0.2 K/mcL (0.0-0.6); Eosinophils % 1.3 %; Hematocrit 53.3 % (37.5-50.1); Immature Granulocytes % 0.5 % (0-4); Lymphocytes # 1.3 K/mcL (0.6-4.6); Lymphocytes % 10.9 %; Mean Corpuscular HGB Conc 35.6 g/dL (31.6-35.5); Mean Corpuscular Hemoglobin 31.2 pg (28.0-33.3); Mean Corpuscular Volume 87.5 fL (83.0-100.0); Monocytes % 8.9 %; Neutrophils # 9.2 K/mcL (1.6-8.9); Platelet Count 294 K/mcL (140-400); Red Blood Count 6.09 M/mcL (4.19-5.50); Red Cell Distribution Width 14.4 % (11.5-14.5); Segmented Neutrophils % 77.9 %; White Blood Count 11.7 K/mcL (4.3-11.1)
[2019-09-27 10:39] LABS: INR 1.1; Prothrombin Time 12.1 Seconds (9.4-12.1)
[2019-09-27 10:40] LABS: Alanine Aminotransferase 14 Units/L (7-52); Albumin 4.7 g/dL (3.5-5.7); Albumin/Globulin Ratio 1.3 (1.1-2.2); Alkaline Phosphatase 92 Units/L (34-104); Aspartate Amino Transferase 22 Units/L (13-39); BUN/Creatinine Ratio 8 (6-26); Bilirubin,Direct 0.4 mg/dL (0.0-0.2); Bilirubin,Indirect 1.6 mg/dL (0.0-1.0); Blood Urea Nitrogen 10 mg/dL (6-20); Calcium 10.2 mg/dL (8.6-10.3); Carbon Dioxide 17 mEq/L (23-29); Chloride 93 mEq/L (98-107); Ethanol < 10 mg/dL (Less than 10); Globulin 3.6 g/dL (2.4-3.5); Glucose 125 mg/dL (70-105); Lipase 53 Units/L (11-82); Osmolality,Calculated 267 (280-300); Potassium 4.2 mEq/L (3.5-5.1); Sodium 128 mEq/L (136-145); Total Protein 8.3 g/dL (6.4-8.9); Troponin I < 0.03 ng/mL (< 0.04); eGFR For African Americans > 60 (> 60); eGFR For Non-African Americans > 60 (> 60)
[2019-09-27] MEDS ORDERED: Ondansetron 4 MG/2 ML VIAL IVP ONE (10:51)
[2019-09-27] MEDS ORDERED: Aspirin 325 MG TABLET PO ONE (10:51)
[2019-09-27] MEDS ORDERED: 0.9 % Sodium Chloride 1,000 ML IVC ONE (10:51)
[2019-09-27] MEDS: Nitroglycerin 0.4 MG TAB.SUBL SL STA ×3 (11:21→11:31)
[2019-09-27 11:54] LABS: Amphetamine Screen,Urine Negative ng/mL (Cutoff=1000); Barbiturate Screen,Urine Negative ng/mL (Cutoff=200); Benzodiazepines Screen,Urine Negative ng/mL (Cutoff=200); Cannabinoid Screen,Urine Positive ng/mL (Cutoff = 50); Cocaine Screen,Urine Negative ng/mL (Cutoff= 300); Opiate Screen,Urine Negative ng/mL (Cutoff=300); Phencyclidine Screen,Urine Negative ng/mL (Cutoff=25)
[2019-09-27 13:02] LABS: Hepatitis B Surface Antigen Nonreactive (Nonreactive)
[2019-09-27] MEDS ORDERED: Naloxone 0.4 MG/ML INJ IVP PRN (13:05)
[2019-09-27] MEDS ORDERED: Ondansetron 4 MG/2 ML VIAL IVP PRN (13:05)
[2019-09-27] MEDS ORDERED: traZODone 50 MG TABLET PO PRN (13:07)
[2019-09-27 13:31] LABS: Hepatitis B Core IgM Nonreactive (Nonreactive)
[2019-09-27 13:32] LABS: Hepatitis A Antibody IgM Nonreactive (Nonreactive); Hepatitis C Virus Antibody Nonreactive (Nonreactive)
[2019-09-27] MEDS ORDERED: GI Cocktail 40 ML EACH PO ONE (14:00)
[2019-09-27] MEDS ORDERED: Acetaminophen 325 MG TABLET PO PRN (14:00)
[2019-09-27] MEDS ORDERED: GuaiFENesin/Codeine Oral Soln 5 ML UDC PO PRN (14:03)
[2019-09-27] MEDS: Thiamine (B-1) 100 MG TABLET PO SCH (14:25)
[2019-09-27] MEDS: Folic Acid 1 MG TABLET PO SCH (14:25)
[2019-09-27] MEDS: Vitamin B Complex/Vit C/Vit E 1 EACH TABLET PO SCH (14:25)
[2019-09-27] MEDS: 0.9 % Sodium Chloride 1,000 ML IVC SCH ×2 (14:26→23:12)
[2019-09-27] MEDS: *HR* Heparin 5,000 UNIT/ML VIAL SQ SCH (17:06)
[2019-09-27 22:33] LABS: BUN/Creatinine Ratio 8 (6-26); Blood Urea Nitrogen 9 mg/dL (6-20); Calcium 8.9 mg/dL (8.6-10.3); Carbon Dioxide 21 mEq/L (23-29); Chloride 102 mEq/L (98-107); Glucose 101 mg/dL (70-105); Osmolality,Calculated 273 (280-300); Sodium 132 mEq/L (136-145); eGFR For African Americans > 60 (> 60); eGFR For Non-African Americans > 60 (> 60)
[2019-09-27 23:08] LABS: Bilirubin,Urine Negative (Negative); Blood,Urine Negative (Negative); Clarity,Urine Clear (Clear); Color,Urine Yellow (Yellow); Glucose,Urine (UA) Normal (Normal); Ketones,Urine Negative (Negative); Leukocyte Esterase,Urine Negative (Negative); Nitrite,Urine Negative (Negative); Protein,Urine Negative (Neg-Trace); Specific Gravity,Urine 1.012 (1.010-1.025); Urobilinogen,Urine Normal (Normal)
[2019-09-27 23:10] LABS: Adenovirus Not Detected (Not Detect); Bordetella Pertussis Not Detected (Not Detect); Chlamydophila pneumoniae Not Detected (Not Detect); Coronavirus 229E Not Detected (Not Detect); Coronavirus HKU1 Not Detected (Not Detect); Coronavirus NL63 Not Detected (Not Detect); Coronavirus OC43 Not Detected (Not Detect); Human Metapneumovirus Not Detected (Not Detect); Human Rhinovirus/Enterovirus Not Detected (Not Detect); Influenza A Subtype 2009 H1 Not Detected (Not Detect); Influenza B Not Detected (Not Detect); Mycoplasma pneumoniae Not Detected (Not Detect); Parainfluenza Virus 1 Not Detected (Not Detect); Parainfluenza Virus 2 Not Detected (Not Detect); Parainfluenza Virus 3 Not Detected (Not Detect); Parainfluenza Virus 4 Not Detected (Not Detect); Respiratory Syncytial Virus Not Detected (Not Detect)
[2019-09-28 03:20] LABS: Basophils % 0.6 %; Eosinophils # 0.1 K/mcL (0.0-0.6); Eosinophils % 2.1 %; Hematocrit 48.6 % (37.5-50.1); Immature Granulocytes % 0.4 % (0-4); Lymphocytes # 1.7 K/mcL (0.6-4.6); Lymphocytes % 25.1 %; Mean Corpuscular HGB Conc 34.8 g/dL (31.6-35.5); Mean Corpuscular Hemoglobin 31.2 pg (28.0-33.3); Mean Corpuscular Volume 89.8 fL (83.0-100.0); Mean Platelet Volume 9.6 fL (9.4-12.4); Monocytes # 0.7 K/mcL (0.0-1.3); Monocytes % 10.3 %; Neutrophils # 4.1 K/mcL (1.6-8.9); Platelet Count 204 K/mcL (140-400); Red Blood Count 5.41 M/mcL (4.19-5.50); Red Cell Distribution Width 14.6 % (11.5-14.5); Segmented Neutrophils % 61.5 %; White Blood Count 6.7 K/mcL (4.3-11.1)
[2019-09-28 03:30] LABS: BUN/Creatinine Ratio 7 (6-26); Blood Urea Nitrogen 7 mg/dL (6-20); Calcium 8.9 mg/dL (8.6-10.3); Carbon Dioxide 24 mEq/L (23-29); Chloride 104 mEq/L (98-107); Chol/HDL Ratio 2.1 (0-4.9); Glucose 96 mg/dL (70-105); Magnesium 2.2 mg/dL (1.6-2.6); Osmolality,Calculated 278 (280-300); Phosphorous 3.1 mg/dL (2.7-4.5); Sodium 135 mEq/L (136-145); eGFR For African Americans > 60 (> 60); eGFR For Non-African Americans > 60 (> 60)
[2019-09-28 03:47] LABS: Estimated Average Glucose 85 mg/dl
[2019-09-28 03:49] LABS: Hemoglobin 16.9 g/dL (12.9-16.9)
[2019-09-28] MEDS: *HR* Heparin 5,000 UNIT/ML VIAL SQ SCH (05:44)
[2019-09-28] MEDS: 0.9 % Sodium Chloride 1,000 ML IVC SCH (06:05)
[2019-09-28 06:37] VITALS: BP 132/88
[2019-09-28] MEDS ORDERED: allopurinoL 100 MG TABLET PO SCH (09:00)
[2019-09-28] MEDS ORDERED: lisinopriL 20 MG TABLET PO SCH (09:00)
[2019-09-28] MEDS ORDERED: Ondansetron ODT 4 MG TAB.RAPDIS SL ONE (09:39)
[2019-09-28] MEDS: Folic Acid 1 MG TABLET PO SCH (10:04)
[2019-09-28] MEDS: Vitamin B Complex/Vit C/Vit E 1 EACH TABLET PO SCH (10:04)
[2019-09-28] MEDS: Thiamine (B-1) 100 MG TABLET PO SCH (10:05)
== END 2019-09-28 11:27 | disposition home or self-care (01) ==
LOC: 3BNU 09:39 → EMEROOARM 09:39 → 3BNU 13:00 → SUATTDRO 13:05
PROVIDERS: ADMIT Internal Medicine; ATTEND Internal Medicine

== ENCOUNTER 2019-12-19 22:01 | Observation (INO) ==
[2019-12-19] MEDS ORDERED: 0.9 % Sodium Chloride 1,000 ML IVC ONE ×2 (22:11→23:01)
[2019-12-19] MEDS ORDERED: Famotidine 20 MG/2 ML VIAL IVP ONE (22:11)
[2019-12-19] MEDS ORDERED: *HR* FentaNYL (PF) 100 MCG/2 ML VIAL IVP ONE (22:26)
[2019-12-19 22:30] LABS: Basophils # 0.1 K/mcL (0.0-0.2); Basophils % 0.5 %; Eosinophils % 0.3 %; Hematocrit 46.1 % (37.5-50.1); Hemoglobin 16.1 g/dL (12.9-16.9); Immature Granulocytes % 0.9 % (0-4); Lymphocytes # 1.7 K/mcL (0.6-4.6); Lymphocytes % 13.5 %; Mean Corpuscular HGB Conc 34.9 g/dL (31.6-35.5); Mean Corpuscular Hemoglobin 32.4 pg (28.0-33.3); Mean Corpuscular Volume 92.8 fL (83.0-100.0); Mean Platelet Volume 9.8 fL (9.4-12.4); Monocytes % 7.5 %; Platelet Count 257 K/mcL (140-400); Red Blood Count 4.97 M/mcL (4.19-5.50); Red Cell Distribution Width 12.1 % (11.5-14.5); Segmented Neutrophils % 77.3 %; White Blood Count 12.9 K/mcL (4.3-11.1)
[2019-12-19 22:49] LABS: Calcium 10.5 mg/dL (8.6-10.3); Potassium 3.8 mEq/L (3.5-5.1)
[2019-12-19 22:51] LABS: Creatine Kinase 151 Units/L (30-223)
[2019-12-19 22:52] LABS: Troponin I < 0.03 ng/mL (< 0.04)
[2019-12-19 22:55] LABS: Bilirubin,Urine Small (Negative); Blood,Urine Negative (Negative); Color,Urine Yellow (Yellow); Glucose,Urine (UA) Normal (Normal); Ketones,Urine Trace mg/dL (Negative); Leukocyte Esterase,Urine Negative (Negative); Nitrite,Urine Negative (Negative); PH,Urine 5.5 pH Units (5.0-8.0); Protein,Urine 30 mg/dL (Neg-Trace); Specific Gravity,Urine 1.015 (1.010-1.025); Urobilinogen,Urine Normal (Normal)
[2019-12-19 22:56] LABS: Clarity,Urine Cloudy (Clear)
[2019-12-19 22:59] LABS: Bacteria,Urine None Seen per hpf (None-Few); Squamous Epithelial Cell,Urine Many per lpf (None-Few); WBC,Urine 15-30 per hpf (0-3)
[2019-12-19 23:20] LABS: Calcium Oxalate Crystals,Urine Present; Hyaline Casts,Urine Many per lpf (None-Few)
[2019-12-20 05:09] LABS: Calcium 8.8 mg/dL (8.6-10.3); Potassium 4.2 mEq/L (3.5-5.1)
[2019-12-20] MEDS ORDERED: 0.9 % Sodium Chloride 1,000 ML IVC ONE (05:35)
[2019-12-20] MEDS ORDERED: 0.9 % Sodium Chloride 1,000 ML IVC SCH (05:45)
[2019-12-20] MEDS ORDERED: 0.9 % Sodium Chloride 1,000 ML ONE (05:48)
[2019-12-20] MEDS ORDERED: traZODone 50 MG TABLET PO PRN (07:30)
[2019-12-20] MEDS ORDERED: *HR* Promethazine 25 MG/ML VIAL IVP PRN (07:31)
[2019-12-20] MEDS ORDERED: Acetaminophen 325 MG TABLET PO PRN (07:31)
[2019-12-20] MEDS ORDERED: Naloxone 0.4 MG/ML INJ IVP PRN (07:31)
[2019-12-20] MEDS ORDERED: Ondansetron 4 MG/2 ML VIAL IVP PRN (07:31)
[2019-12-20 14:07] LABS: Calcium 8.6 mg/dL (8.6-10.3); Potassium 4.2 mEq/L (3.5-5.1)
[2019-12-21 06:44] LABS: BUN/Creatinine Ratio 12 (6-26); Blood Urea Nitrogen 17 mg/dL (6-20); Calcium 8.7 mg/dL (8.6-10.3); Carbon Dioxide 23 mEq/L (23-29); Chloride 107 mEq/L (98-107); Glucose 92 mg/dL (70-105); Osmolality,Calculated 283 (280-300); Potassium 4.2 mEq/L (3.5-5.1); Sodium 136 mEq/L (136-145); eGFR For African Americans > 60 (> 60); eGFR For Non-African Americans 51 (> 60)
[2019-12-21 06:51] VITALS: BP 120/81
== END 2019-12-21 11:01 | disposition home or self-care (01) ==
LOC: EMEROOARM 22:01 → 3BNU 22:01 → EMEROOARM 12-20 01:04 → SUATTDRO 12-20 05:45 → 3BNU 12-20 06:33
PROVIDERS: ADMIT Internal Medicine; ATTEND Internal Medicine